=== PATIENT | male | born 1960 | race Caucasian/White ===

== ENCOUNTER 2017-04-23 15:10 | Emergency (ER) | payer MEDICAID ==
[~2017-04-23] VITALS: Ht 177.8 cm; Wt 87.1 kg
[~2017-04-23 15:10] MED LIST: DIVA500T4; FLUT0.0531; TOPI100T29; TRAZ100T2
[2017-04-23] MEDS ORDERED: KETOROLAC TROMETH 60MG/2ML VIAL IM ONE (17:30)
[2017-04-23 17:37] VITALS: BP 126/89
== END 2017-04-23 17:56 | disposition home or self-care (01) ==
LOC: ER 15:12
DX: M19.011 Primary osteoarthritis, right shoulder (principal)
CPT/HCPCS: 73030; 96372; 99284; J1885

== ENCOUNTER 2017-05-09 11:48 | Emergency (ER) | payer MEDICAID ==
[~2017-05-09] VITALS: Ht 177.8 cm; Wt 84.8 kg
[2017-05-09 15:57] VITALS: BP 129/79
[2017-05-09] MEDS ORDERED: LEVOFLOXACIN 500 MG TAB PO ONE (16:45)
== END 2017-05-09 16:56 | disposition home or self-care (01) ==
LOC: ER 11:48
DX: J18.9 Pneumonia, unspecified organism (principal); M19.90 Unspecified osteoarthritis, unspecified site; R07.89 Other chest pain

== ENCOUNTER 2017-06-18 16:12 | Inpatient (IN) | payer MEDICAID ==
[~2017-06-18] VITALS: Ht 177.8 cm; Wt 92.8 kg
[2017-06-18] MEDS ORDERED: LORazepam 2MG/ML-1ML VIAL ONE (16:30)
[2017-06-18] MEDS ORDERED: LORazepam 2MG/ML-1ML VIAL IV ONE ×2 (16:45)
[2017-06-18 16:52] LABS: Basophils # (auto) 0.1 uL; Basophils % (auto) 0.6 % (0.0-2.0); Eosinophils # (auto) 0.4 uL; Eosinophils % (auto) 4.9 % (0.0-7.0); Hematocrit 43.5 % (41.0-53.0); Hemoglobin 14.6 g/dL (13.5-17.5); Lymphocytes # (auto) 2.2 uL; Lymphocytes % (auto) 26.1 % (10.0-50.0); Mean Corpuscular Hemoglobin 33.6 pg (28.0-32.0); Mean Corpuscular Hgb Conc. 33.5 g/dL (32.0-36.0); Mean Corpuscular Volume 100.2 fL (80.0-100.0); Monocytes # (auto) 0.6 uL; Monocytes % (auto) 6.8 % (0.0-12.0); Neutrophils # (auto) 5.1 uL; Neutrophils % (auto) 61.6 % (37.0-80.0); Nucleated Red Blood Cells % 0.2 %; Platelet Count (auto) 188 10^3/uL (140-450); Red Blood Cells 4.34 10^6/uL (4.5-5.90); Red Cell Distribution Width 14.7 % (11.8-14.3); White Blood Cell 8.3 10^3/uL (4.4-10.8)
[2017-06-18 17:13] LABS: Alanine Aminotransferase 12 U/L (16-61); Albumin 3.7 g/dL (3.4-5.0); Alkaline Phosphatase 56 U/L (45-117); Anion Gap 9 (5-15); Aspartate Aminotransferase 15 U/L (15-37); BUN/Creatinine Ratio 20.7; Bilirubin, Total 0.3 mg/dL (0.2-1.0); Blood Urea Nitrogen 18 mg/dL (7-18); Calcium 7.9 mg/dL (8.5-10.1); Carbon Dioxide 20 mmol/L (21-32); Chloride 113 mmol/L (98-107); GFR African American 116 mL/min; GFR Non-African American 96 mL/min; Glucose 87 mg/dL (74-106); Potassium 4.1 mmol/L (3.5-5.1); Sodium 142 mmol/L (136-145); Total Protein 7.2 g/dL (6.4-8.2)
[2017-06-18 17:22] LABS: INR 0.96 (0.9-1.15); Partial Thromboplastin Time 31.5 sec (22.64-33.71); Prothrombin Time 10.5 sec (9.37-12.3)
[2017-06-18] MEDS ORDERED: LORazepam 2MG/ML-1ML VIAL IV PRN (19:00)
[2017-06-18] MEDS ORDERED: LACTULOSE 20Gm/30ML SOLN PO PRN (19:00)
[2017-06-18] MEDS ORDERED: TEMAZEPAM 15 MG CAP PO PRN (19:00)
[2017-06-18] MEDS ORDERED: MORPHINE SULFATE 4 MG/ML SYR/VIAL IV PRN ×2 (19:00)
[2017-06-18] MEDS ORDERED: LORazepam 0.5 MG TAB PO PRN (19:00)
[2017-06-18] MEDS ORDERED: NITROGLYCERIN 0.4 MG SL TAB SL PRN (19:00)
[2017-06-18] MEDS ORDERED: HYDROcodone-ACET 5/325MG TAB PO PRN (19:00)
[2017-06-18] MEDS ORDERED: PROMETHAZINE HCL 25 MG/ML 1ML IV PRN (19:00)
[2017-06-18] MEDS ORDERED: ACETAMINOPHEN 500 MG TAB PO PRN (19:00)
[2017-06-18 20:16] VITALS: BP 123/72
[2017-06-18 21:09] LABS: Urine Bacteria NONE SEEN /hpf (None Seen); Urine Blood 1+ /uL (Negative); Urine Mucus FEW (None Seen); Urine Specific Gravity 1.031 (1.001-1.035); Urine WBC 1 /hpf (0 - 3)
[2017-06-18 21:12] LABS: Alcohol, Urine < 3.0 mg/dL (0-5); Amphetamine Screen, Urine NEGATIVE (NEGATIVE); Barbiturate Scree,Urine NEGATIVE (NEGATIVE); Benzodiazephine Screen, Urine NEGATIVE (NEGATIVE); Cannabinoid Screen, Urine POSITIVE (NEGATIVE); Cocaine Screen, Urine NEGATIVE (NEGATIVE); Opiate Scree,Urine NEGATIVE (NEGATIVE); Phencyclidine Screen, Urine NEGATIVE (NEGATIVE)
[2017-06-18] MEDS ORDERED: traZODone HCL 50 MG TAB PO SCH (22:00)
[2017-06-18 22:02] VITALS: BP 123/72
[2017-06-18] MEDS: TOPIRAMATE 100 MG TAB PO SCH (22:11)
[2017-06-19 05:00] VITALS: BP 107/61
[2017-06-19 07:01] LABS: Cholesterol 200 mg/dL (< 200); HDL Cholesterol 35 mg/dL (40-59); LDL Cholesterol 144 mg/dL (< 100); Triglycerides 124 mg/dL (< 150)
[2017-06-19 09:00] VITALS: BP 103/64
[2017-06-19] MEDS: TOPIRAMATE 100 MG TAB PO SCH (09:45)
[2017-06-19] MEDS ORDERED: PANTOPRAZOLE 40 MG TAB PO SCH (10:00)
[2017-06-19] MEDS ORDERED: ENOXAPARIN SOD 40 MG/0.4 ML SYRINGE SC SCH (10:00)
[2017-06-19] MEDS ORDERED: NAP500T PO (14:30)
[2017-06-19] MEDS ORDERED: PROP60CA8 PO (14:30)
[2017-06-19] MEDS ORDERED: BACL10TA PO (14:30)
[2017-06-19 16:59] VITALS: BP 105/62
[2017-06-19 17:55] VITALS: BP 105/62
[2017-06-19] MEDS ORDERED: ATORVASTATIN 20 MG TAB PO SCH (18:00)
[2017-06-20] MEDS ORDERED: INFLUENZA QUAD 2017-2018 0.5 ML SYRG IM ONE (10:00)
[2017-06-20] MEDS ORDERED: PNEUMOCOCCAL VACC POLYS 25 MCG/0.5 ML VIAL IM ONE (10:00)
== END 2017-06-19 19:04 | disposition home or self-care (01) | DRG 53 ==
LOC: EDBD 16:12 → ER 16:12 → TELE 16:13 → TELE-WESTW 20:16
PROVIDERS: ADMIT Internal Medicine; ATTEND Internal Medicine
DX: G40.409 Other generalized epilepsy and epileptic syndromes, not intractable, without status epilepticus (principal); G93.41 Metabolic encephalopathy; E78.5 Hyperlipidemia, unspecified; I11.0 Hypertensive heart disease with heart failure; I50.9 Heart failure, unspecified; F17.210 Nicotine dependence, cigarettes, uncomplicated; F51.04 Psychophysiologic insomnia; M19.90 Unspecified osteoarthritis, unspecified site; R00.1 Bradycardia, unspecified; K59.00 Constipation, unspecified; F41.9 Anxiety disorder, unspecified; Z82.3 Family history of stroke; Z79.899 Other long term (current) drug therapy
CPT/HCPCS: 36415; 70450; 71045; 80053; 80061; 80164; 80307; 81001; 82550; 83605; 83880; 84443; 84484; 85025; 85610; 85652; 85730; 87040; 93005; 93306; 96374

== ENCOUNTER 2018-08-01 11:56 | Emergency (ER) | payer MEDICAID, OTHER ==
[~2018-08-01] VITALS: Ht 177.8 cm; Wt 81.6 kg
[~2018-08-01 11:56] MED LIST changes: +BACL10TA PO; +NAP500T PO
[2018-08-01] MEDS ORDERED: KETOROLAC TROMETH 60MG/2ML VIAL IM ONE (15:45)
[2018-08-01 15:56] VITALS: BP 136/86
== END 2018-08-01 17:09 | disposition home or self-care (01) ==
LOC: ER 11:56
DX: S92.211A Displaced fracture of cuboid bone of right foot, initial encounter for closed fracture (principal); F17.210 Nicotine dependence, cigarettes, uncomplicated; M19.90 Unspecified osteoarthritis, unspecified site; Z79.899 Other long term (current) drug therapy; X50.1XXA Overexertion from prolonged static or awkward postures, initial encounter; Y93.39 Activity, other involving climbing, rappelling and jumping off; Y92.89 Other specified places as the place of occurrence of the external cause; Y99.8 Other external cause status
CPT/HCPCS: 73630; 96372; 99283; J1885; L3260

== ENCOUNTER 2018-11-29 12:44 | Emergency (ER) | payer MEDICAID ==
[~2018-11-29] VITALS: Ht 177.8 cm; Wt 95.3 kg
[2018-11-29 15:10] LABS: Hematocrit 44.7 % (41.0-53.0); Hemoglobin 15.1 g/dL (13.5-17.5); Mean Corpuscular Hemoglobin 33.9 pg (28.0-32.0); Mean Corpuscular Hgb Conc. 33.7 g/dL (32.0-36.0); Mean Corpuscular Volume 100.7 fL (80.0-100.0); Platelet Count (auto) 187 10^3/uL (140-450); Red Blood Cells 4.44 10^6/uL (4.5-5.90); Red Cell Distribution Width 14.3 % (11.8-14.3); White Blood Cell 9.3 10^3/uL (4.4-10.8)
[2018-11-29 15:24] LABS: Alanine Aminotransferase 10 U/L (16-61); Albumin 3.9 g/dL (3.4-5.0); Anion Gap 8 (5-15); Aspartate Aminotransferase 12 U/L (15-37); Blood Urea Nitrogen 23 mg/dL (7-18); Calcium 8.5 mg/dL (8.5-10.1); Carbon Dioxide 22 mmol/L (21-32); Chloride 109 mmol/L (98-107); GFR African American 74 mL/min; GFR Non-African American 61 mL/min; Glucose 86 mg/dL (74-106); Potassium 3.8 mmol/L (3.5-5.1); Sodium 139 mmol/L (136-145)
[2018-11-29 15:29] LABS: Alkaline Phosphatase 62 U/L (45-117); Bilirubin, Total 0.4 mg/dL (0.2-1.0); Total Protein 7.1 g/dL (6.4-8.2)
[2018-11-29 15:30] LABS: Basophils % (manual) 0 (0.0-2.0); Blast Cells 0; Eosinophils % (manual) 0 (0-7); Metamyelocytes % 0; Myelocytes % 0; Promyelocytes % 0; Reactive Lymphocytes 0
[2018-11-29 18:41] LABS: Band Neutrophils % (manual) 1; Lymphocytes % (manual) 30 (10.0-50.0); Monocytes % (manual) 5 (0-12)
[2018-11-29 18:50] VITALS: BP 116/80
== END 2018-11-29 20:55 | disposition left against medical advice (07) ==
LOC: EDBD 12:44 → EDUNIT# 12:44 → ER 12:46
DX: R56.9 Unspecified convulsions (principal); Z53.21 Procedure and treatment not carried out due to patient leaving prior to being seen by health care provider
CPT/HCPCS: 36415; 70450; 71045; 80053; 84484; 85007; 85027; 93005

== ENCOUNTER 2019-05-02 08:42 | Emergency (ER) | payer MEDICAID ==
[~2019-05-02] VITALS: Ht 177.8 cm; Wt 84.4 kg
[~2019-05-02 08:42] MED LIST changes: -TRAZ100T2; +TRAZ100T3
[2019-05-02 10:00] VITALS: BP 114/68
[2019-05-02] MEDS ORDERED: SODIUM CHLORIDE 0.9% 1,000 ML IV ONE (10:41)
[2019-05-02 11:15] LABS: Hematocrit 40.4 % (41.0-53.0); Hemoglobin 13.6 g/dL (13.5-17.5); Mean Corpuscular Hemoglobin 33.9 pg (28.0-32.0); Mean Corpuscular Hgb Conc. 33.7 g/dL (32.0-36.0); Mean Corpuscular Volume 100.7 fL (80.0-100.0); Platelet Count (auto) 151 10^3/uL (140-450); Red Blood Cells 4.01 10^6/uL (4.5-5.90); Red Cell Distribution Width 14.3 % (11.8-14.3); White Blood Cell 6.7 10^3/uL (4.4-10.8)
[2019-05-02 11:18] LABS: Basophils % (manual) 0 (0.0-2.0); Blast Cells 0; Promyelocytes % 0; Reactive Lymphocytes 0
[2019-05-02 11:28] LABS: Albumin 3.3 g/dL (3.4-5.0); Anion Gap 2 (5-15); Blood Urea Nitrogen 21 mg/dL (7-18); Calcium 8.4 mg/dL (8.5-10.1); Carbon Dioxide 26 mmol/L (21-32); Chloride 113 mmol/L (98-107); Glucose 87 mg/dL (74-106); Potassium 4.7 mmol/L (3.5-5.1); Sodium 141 mmol/L (136-145)
[2019-05-02 11:34] LABS: Alanine Aminotransferase 9 U/L (16-61); Alkaline Phosphatase 47 U/L (45-117); Aspartate Aminotransferase 10 U/L (15-37); Bilirubin, Total 0.3 mg/dL (0.2-1.0); GFR African American 100 mL/min; GFR Non-African American 82 mL/min; Total Protein 6.2 g/dL (6.4-8.2)
[2019-05-02 11:37] LABS: INR 1.04 (0.9-1.15); Partial Thromboplastin Time 30.4 sec (23.64-32.05)
[2019-05-02 11:41] LABS: Band Neutrophils % (manual) 1; Eosinophils % (manual) 3 (0-7); Lymphocytes % (manual) 29 (10.0-50.0); Metamyelocytes % 1; Monocytes % (manual) 8 (0-12); Myelocytes % 1
[2019-05-02 12:02] LABS: BUN/Creatinine Ratio 21.2
== END 2019-05-02 12:49 | disposition home or self-care (01) ==
LOC: ER 08:42
DX: R00.1 Bradycardia, unspecified (principal); R56.9 Unspecified convulsions; R40.4 Transient alteration of awareness; F17.210 Nicotine dependence, cigarettes, uncomplicated; M19.90 Unspecified osteoarthritis, unspecified site; W19.XXXA Unspecified fall, initial encounter; Y93.89 Activity, other specified; Y99.8 Other external cause status; Y92.89 Other specified places as the place of occurrence of the external cause
CPT/HCPCS: 36415; 70450; 71101; 80053; 84484; 85007; 85027; 85610; 85730

== ENCOUNTER 2019-06-13 10:46 | Emergency (ER) | payer MEDICAID ==
[~2019-06-13] VITALS: Ht 177.8 cm; Wt 83.0 kg
[2019-06-13] MEDS ORDERED: SODIUM CHLORIDE 0.9% 1,000 ML IVB ONE (10:51)
[2019-06-13 11:21] LABS: Basophils # (auto) 0.1 uL; Basophils % (auto) 1.4 % (0.0-2.0); Eosinophils # (auto) 0.4 uL; Lymphocytes # (auto) 2.1 uL; White Blood Cell 7.8 10^3/uL (4.4-10.8)
[2019-06-13 11:23] LABS: Eosinophils % (auto) 4.5 % (0.0-7.0); Hematocrit 44.3 % (41.0-53.0); Hemoglobin 15.1 g/dL (13.5-17.5); Lymphocytes % (auto) 26.7 % (10.0-50.0); Mean Corpuscular Hemoglobin 34.7 pg (28.0-32.0); Mean Corpuscular Hgb Conc. 34.2 g/dL (32.0-36.0); Mean Corpuscular Volume 101.6 fL (80.0-100.0); Monocytes # (auto) 0.5 uL; Monocytes % (auto) 6.8 % (0.0-12.0); Neutrophils # (auto) 4.7 uL; Neutrophils % (auto) 60.6 % (37.0-80.0); Platelet Count (auto) 211 10^3/uL (140-450); Red Blood Cells 4.36 10^6/uL (4.5-5.90); Red Cell Distribution Width 15.1 % (11.8-14.3)
[2019-06-13 12:04] LABS: Alanine Aminotransferase 17 U/L (16-61); Albumin 3.9 g/dL (3.4-5.0); Anion Gap 6 (5-15); Blood Alcohol < 3.0 mg/dL (0-5); Blood Urea Nitrogen 16 mg/dL (7-18); Calcium 9.1 mg/dL (8.5-10.1); Carbon Dioxide 21 mmol/L (21-32); Chloride 113 mmol/L (98-107); Glucose 96 mg/dL (74-106); Magnesium 1.9 mg/dL (1.6-2.6); Potassium 3.9 mmol/L (3.5-5.1); Sodium 140 mmol/L (136-145)
[2019-06-13 12:07] LABS: Alkaline Phosphatase 67 U/L (45-117); Aspartate Aminotransferase 18 U/L (15-37); BUN/Creatinine Ratio 17.6; Bilirubin, Total 0.3 mg/dL (0.2-1.0); GFR African American 110 mL/min; GFR Non-African American 91 mL/min; Total Protein 7.3 g/dL (6.4-8.2)
[2019-06-13 16:12] LABS: Amphetamine Screen, Urine NEGATIVE (NEGATIVE); Barbiturate Scree,Urine POSITIVE (NEGATIVE); Benzodiazephine Screen, Urine NEGATIVE (NEGATIVE); Cannabinoid Screen, Urine NEGATIVE (NEGATIVE); Cocaine Screen, Urine NEGATIVE (NEGATIVE); Opiate Scree,Urine NEGATIVE (NEGATIVE); Phencyclidine Screen, Urine NEGATIVE (NEGATIVE)
[2019-06-13 16:28] VITALS: BP 131/58
== END 2019-06-13 16:23 | disposition home or self-care (01) ==
LOC: ER 10:46 → EDBD 10:46 → ER 16:23
DX: R56.9 Unspecified convulsions (principal); R53.1 Weakness; R42 Dizziness and giddiness; M19.90 Unspecified osteoarthritis, unspecified site; J44.9 Chronic obstructive pulmonary disease, unspecified; F17.210 Nicotine dependence, cigarettes, uncomplicated
CPT/HCPCS: 36415; 70450; 72125; 80053; 80164; 80307; 80320; 83735; 85025; 93005; 96360; 96361

== ENCOUNTER 2020-02-19 13:23 | Emergency (ER) | payer MEDICAID ==
[~2020-02-19] VITALS: Ht 177.8 cm; Wt 87.5 kg
[2020-02-19] MEDS ORDERED: SODIUM CHLORIDE 0.9% 1,000 ML IV ONE ×2 (13:30)
[2020-02-19 14:03] LABS: Basophils # (auto) 0.1 10 ^3/uL (0-0.2); Eosinophils # (auto) 0.1 10 ^3/uL (0-0.8); Hematocrit 50.1 % (41.0-53.0); Hemoglobin 16.8 g/dL (13.5-17.5); Lymphocytes # (auto) 1.6 10 ^3/uL (0.4-5.4); Lymphocytes % (auto) 24.8 % (10.0-50.0); Mean Corpuscular Hemoglobin 34.1 pg (28.0-32.0); Mean Corpuscular Hgb Conc. 33.6 g/dL (32.0-36.0); Mean Corpuscular Volume 101.3 fL (80.0-100.0); Monocytes # (auto) 0.6 10 ^3/uL (0-1.3); Monocytes % (auto) 9.1 % (0.0-12.0); Neutrophils # (auto) 4.2 10 ^3/uL (1.6-8.6); Neutrophils % (auto) 63.1 % (37.0-80.0); Platelet Count (auto) 159 10^3/uL (140-450); Red Blood Cells 4.94 10^6/uL (4.5-5.90); Red Cell Distribution Width 14.6 % (11.8-14.3); White Blood Cell 6.6 10^3/uL (4.4-10.8)
[2020-02-19 14:18] LABS: INR 1.02 (0.9-1.15); Partial Thromboplastin Time 25.9 sec (23.0-31.2)
[2020-02-19 14:19] LABS: Albumin 3.9 g/dL (3.4-5.0); Anion Gap 5 (5-15); Blood Urea Nitrogen 25 mg/dL (7-18); Calcium 8.6 mg/dL (8.5-10.1); Carbon Dioxide 25 mmol/L (21-32); Chloride 111 mmol/L (98-107); Glucose 96 mg/dL (74-106); Potassium 3.8 mmol/L (3.5-5.1); Sodium 141 mmol/L (136-145)
[2020-02-19 14:25] LABS: Alanine Aminotransferase 20 U/L (16-61); Alkaline Phosphatase 60 U/L (45-117); Aspartate Aminotransferase 20 U/L (15-37); BUN/Creatinine Ratio 24.8; Bilirubin, Total 0.3 mg/dL (0.2-1.0); GFR African American 97 mL/min; GFR Non-African American 80 mL/min; Total Protein 7.2 g/dL (6.4-8.2)
[2020-02-19 17:08] LABS: Urine Bacteria NONE SEEN /hpf (None Seen); Urine Blood 1+ /uL (Negative); Urine Specific Gravity 1.017 (1.001-1.035); Urine WBC 1 /hpf (0 - 3)
[2020-02-19] MEDS ORDERED: DOBUTamine 1000MCG/ML 250 ML IV ONE (17:15)
[2020-02-19] MEDS ORDERED: LORazepam 2MG/ML-1ML VIAL IV PRN (17:45)
[2020-02-19] MEDS ORDERED: VALPROATE INJ 1,000 MG in SODIUM CHL 0.9% 100 ML IV ONE (17:45)
[2020-02-19] MEDS ORDERED: SODIUM CHLORIDE 0.9% 1,000 ML IV SCH (17:45)
[2020-02-19] MEDS ORDERED: LACTATED RINGER'S 1,000 ML IV ONE (17:45)
[2020-02-19] MEDS ORDERED: NITROGLYCERIN 0.4 MG SL TAB SL PRN ×2 (18:00→21:30)
[2020-02-19] MEDS ORDERED: MORPHINE SULF INJ 2 MG/ML SYRINGE 1ML IV PRN ×3 (18:00→21:30)
[2020-02-19 20:00] VITALS: BP 102/68
[2020-02-19] MEDS ORDERED: FLUT1SPR21 (20:10)
[2020-02-19] MEDS ORDERED: NICO14DI29 TD (20:11)
[2020-02-19] MEDS ORDERED: BACLOFEN 10 MG TAB PO PRN (21:15)
[2020-02-19] MEDS ORDERED: FOLIC ACID 1 MG TAB PO ONE (21:15)
[2020-02-19] MEDS ORDERED: MULTIPLE VITAMIN TAB PO ONE (21:15)
[2020-02-19] MEDS ORDERED: DOCUSATE SOD 100 MG CAP PO PRN (21:30)
[2020-02-19] MEDS ORDERED: LORazepam 0.5 MG TAB PO PRN (21:30)
[2020-02-19] MEDS ORDERED: ONDANSETRON HCL 4 MG/2 ML VIAL IV PRN (21:30)
[2020-02-19] MEDS ORDERED: cefTRIAXone 1GM/50ML D5W 50 ML IV ONE (21:30)
[2020-02-19] MEDS ORDERED: HYDROcodone-ACET 5/325MG TAB PO PRN (21:30)
[2020-02-19] MEDS ORDERED: ACETAMINOPHEN 325 MG TAB PO PRN (21:30)
[2020-02-19] MEDS ORDERED: ALUM & MAG HYDROX-SIMETH LIQ(MAALOX) 30 ML PO PRN (21:30)
[2020-02-19] MEDS ORDERED: traZODone HCL 50 MG TAB PO SCH (22:00)
[2020-02-19] MEDS ORDERED: BUDESONIDE (INHALATION) 0.5 MG/2 ML NEB NEB SCH (22:00)
[2020-02-19] MEDS ORDERED: CLINDAMYCIN 600MG IV 50 ML IV ONE (22:00)
[2020-02-19] MEDS ORDERED: TOPIRAMATE 100 MG TAB PO SCH (22:00)
[2020-02-19] MEDS ORDERED: PRIMIDONE 50 MG TAB PO SCH (22:00)
[2020-02-19] MEDS ORDERED: CLINDAMYCIN 600MG IV 50 ML IV SCH (22:00)
[2020-02-19] MEDS ORDERED: IPRATROPIUM BROM 0.5 MG/2.5ML INH SOL NEB SCH (22:00)
[2020-02-19] MEDS ORDERED: LACOSAMIDE 50 MG TAB PO SCH (22:00)
[2020-02-19 22:22] LABS: Alcohol, Urine < 3.0 mg/dL (0-10); Amphetamine Screen, Urine NEGATIVE (NEGATIVE); Barbiturate Scree,Urine POSITIVE (NEGATIVE); Cannabinoid Screen, Urine POSITIVE (NEGATIVE); Cocaine Screen, Urine NEGATIVE (NEGATIVE)
[2020-02-19 22:29] LABS: Benzodiazephine Screen, Urine NEGATIVE (NEGATIVE); Opiate Scree,Urine NEGATIVE (NEGATIVE); Phencyclidine Screen, Urine NEGATIVE (NEGATIVE)
[2020-02-20] MEDS ORDERED: CLINDAMYCIN 600MG IV 50 ML IV SCH (06:00)
[2020-02-20] MEDS ORDERED: cefTRIAXone 1GM/50ML D5W 50 ML IV SCH (09:00)
[2020-02-20] MEDS ORDERED: ENOXAPARIN SOD 40 MG/0.4 ML SYRINGE SC SCH (10:00)
[2020-02-20] MEDS ORDERED: FOLIC ACID 1 MG TAB PO SCH (10:00)
[2020-02-20] MEDS ORDERED: THIAMINE 100mg/ml INJ (200mg/2ml VIAL) IV SCH (10:00)
[2020-02-20] MEDS ORDERED: MULTIPLE VITAMIN TAB PO SCH (10:00)
[2020-02-20] MEDS ORDERED: NICOTINE 14 MG/24HR TOPICAL PATCH TD SCH (10:00)
== END 2020-02-19 21:19 | disposition left against medical advice (07) ==
LOC: EDBD 13:23 → ER 13:23
DX: G40.909 Epilepsy, unspecified, not intractable, without status epilepticus (principal); E86.0 Dehydration; R00.1 Bradycardia, unspecified; R55 Syncope and collapse; J44.9 Chronic obstructive pulmonary disease, unspecified; F17.210 Nicotine dependence, cigarettes, uncomplicated
CPT/HCPCS: 36415; 70450; 71045; 73030; 80053; 80307; 80320; 81001; 82550; 83036; 84146; 84484; 85025; 85610; 85730; 87086; 93005; 96360; 96361; 99285; J1250

== ENCOUNTER 2020-12-02 11:02 | Emergency (ER) | payer MEDICAID ==
[~2020-12-02] VITALS: Ht 177.8 cm; Wt 87.1 kg
[~2020-12-02 11:02] MED LIST changes: -FLUT0.0531; +FLUT1SPR21; +NICO14DI29 TD
[2020-12-02 12:39] VITALS: BP 148/91
== END 2020-12-02 13:26 | disposition home or self-care (01) ==
LOC: ER 11:02
DX: S16.1XXA Strain of muscle, fascia and tendon at neck level, initial encounter (principal); M48.02 Spinal stenosis, cervical region; M47.892 Other spondylosis, cervical region; J44.9 Chronic obstructive pulmonary disease, unspecified; Z79.899 Other long term (current) drug therapy; X58.XXXA Exposure to other specified factors, initial encounter; Y93.89 Activity, other specified; Y92.89 Other specified places as the place of occurrence of the external cause; Y99.8 Other external cause status
CPT/HCPCS: 72125

== ENCOUNTER 2021-08-25 19:57 | Emergency (ER) | payer MEDICAID ==
[~2021-08-25] VITALS: Ht 177.8 cm; Wt 88.5 kg
[2021-08-25 19:58] VITALS: BP 131/78
== END 2021-08-25 21:54 | disposition left against medical advice (07) ==
LOC: ER 19:57
DX: M25.532 Pain in left wrist (principal); Z53.21 Procedure and treatment not carried out due to patient leaving prior to being seen by health care provider

== ENCOUNTER 2021-09-09 10:01 | Emergency (ER) | payer MEDICAID ==
[~2021-09-09] VITALS: Ht 177.8 cm; Wt 100.7 kg
[2021-09-09 11:11] VITALS: BP 154/79
== END 2021-09-09 12:30 | disposition home or self-care (01) ==
LOC: ER 10:01
DX: M13.842 Other specified arthritis, left hand (principal); M13.841 Other specified arthritis, right hand; J44.9 Chronic obstructive pulmonary disease, unspecified
CPT/HCPCS: 73130

== ENCOUNTER 2022-04-20 18:31 | Emergency (ER) | payer MEDICAID ==
[~2022-04-20] VITALS: Ht 177.8 cm; Wt 119.0 kg
[2022-04-20 19:19] VITALS: BP 161/96
== END 2022-04-21 02:16 | disposition left against medical advice (07) ==
LOC: ER 18:33
DX: M54.50 Low back pain, unspecified (principal); Z53.21 Procedure and treatment not carried out due to patient leaving prior to being seen by health care provider

== ENCOUNTER 2022-04-28 10:43 | Emergency (ER) | payer MEDICAID ==
[~2022-04-28] VITALS: Ht 177.8 cm; Wt 116.8 kg
[2022-04-28] MEDS ORDERED: LIDO5DIS21 TOP (14:14)
[2022-04-28] MEDS ORDERED: IBUP600T28 PO (14:14)
[2022-04-28] MEDS ORDERED: KETOROLAC TROMETH 30 MG/ML 1ML VIAL IM ONE (14:15)
[2022-04-28 14:30] VITALS: BP 143/79
[2022-04-28] MEDS ORDERED: CEPH-510 PO (14:35)
== END 2022-04-28 14:40 | disposition home or self-care (01) ==
LOC: ER 10:43
DX: S39.012A Strain of muscle, fascia and tendon of lower back, initial encounter (principal); J44.9 Chronic obstructive pulmonary disease, unspecified; W57.XXXA Bitten or stung by nonvenomous insect and other nonvenomous arthropods, initial encounter; Y93.89 Activity, other specified; Y92.89 Other specified places as the place of occurrence of the external cause; Y99.8 Other external cause status
CPT/HCPCS: 72100; 96372; 99283; J1885

== ENCOUNTER 2023-05-08 08:37 | Emergency (ER) | payer MEDICAID ==
[~2023-05-08] VITALS: Ht 177.8 cm; Wt 124.3 kg
[~2023-05-08 08:37] MED LIST changes: +CEPH-510 PO; +DIVA-93; -DIVA500T4; +IBUP1TAB5 PO; +LIDO5DIS21 TOP; +TRAZ-228; -TRAZ100T3
[2023-05-08 09:43] LABS: Basophils # (auto) 0.1 10 ^3/uL (0-0.2); Eosinophils # (auto) 0.2 10 ^3/uL (0-0.8); Hemoglobin 16.4 g/dL (13.5-17.5); Lymphocytes # (auto) 1.9 10 ^3/uL (0.4-5.4); Lymphocytes % (auto) 20.2 % (10.0-50.0); Mean Corpuscular Hemoglobin 32.3 pg (28.0-32.0); Mean Corpuscular Hgb Conc. 32.9 g/dL (32.0-36.0); Mean Corpuscular Volume 98.1 fL (80.0-100.0); Monocytes # (auto) 0.7 10 ^3/uL (0-1.3); Monocytes % (auto) 7.6 % (0.0-12.0); Neutrophils # (auto) 6.5 10 ^3/uL (1.6-8.6); Neutrophils % (auto) 69.2 % (37.0-80.0); Red Blood Cells 5.09 10^6/uL (4.5-5.90); Red Cell Distribution Width 14.6 % (11.8-14.3); White Blood Cell 9.5 10^3/uL (4.4-10.8)
[2023-05-08 10:02] LABS: Chloride 105 mmol/L (98-107); Potassium 4.9 mmol/L (3.5-5.1); Sodium 139 mmol/L (136-145)
[2023-05-08 10:03] LABS: Anion Gap 4 (5-15); Calcium 9.1 mg/dL (8.7-10.4); Carbon Dioxide 30 mmol/L (20-30)
[2023-05-08 10:07] LABS: Uric Acid 8.4 mg/dL (3.7-9.2)
[2023-05-08 10:08] LABS: BUN/Creatinine Ratio 10.2 (10.0-20.0); Blood Urea Nitrogen 15 mg/dL (9-23); Glucose 109 mg/dL (74-106)
[2023-05-08] MEDS ORDERED: PRED20TA2 PO (10:30)
[2023-05-08] MEDS ORDERED: ACET-1304 PO (10:30)
[2023-05-08] MEDS ORDERED: methylPREDNISolone SOD SUCC 125 MG/2 ML VL IM ONE (10:30)
[2023-05-08] MEDS ORDERED: ACETAMINOPHEN 500 MG TAB PO ONE (10:30)
[2023-05-08 10:40] VITALS: BP 150/82; PULSE 75; RESP 17; TEMP 98.2; O2SAT 94
== END 2023-05-08 10:41 | disposition home or self-care (01) ==
LOC: ER 08:37
DX: M10.9 Gout, unspecified (principal)
CPT/HCPCS: 36415; 73080; 80048; 84550; 85025; 96372; 99284; J2930

== ENCOUNTER 2023-07-08 11:19 | Inpatient (IN) | payer MEDICAID ==
[~2023-07-08] VITALS: Ht 177.8 cm; Wt 126.0 kg
[~2023-07-08 11:19] MED LIST changes: +ACET-1304 PO; +PRED20TA2 PO
[2023-07-08] MEDS: SODIUM CHLORIDE 0.9% 500 ML IVB ONE (13:36)
[2023-07-08 14:15] LABS: Basophils # (auto) 0.1 10 ^3/uL (0-0.2); Basophils % (auto) 0.9 % (0.0-2.0); Eosinophils # (auto) 0.2 10 ^3/uL (0-0.8); Hemoglobin 17.1 g/dL (13.5-17.5); Lymphocytes # (auto) 1.8 10 ^3/uL (0.4-5.4); Lymphocytes % (auto) 20.6 % (10.0-50.0); Monocytes # (auto) 0.6 10 ^3/uL (0-1.3); Neutrophils # (auto) 6.1 10 ^3/uL (1.6-8.6); Neutrophils % (auto) 69.5 % (37.0-80.0); Nucleated Red Blood Cells % 0.1 %; Red Blood Cells 5.33 10^6/uL (4.5-5.90); White Blood Cell 8.7 10^3/uL (4.4-10.8)
[2023-07-08 14:16] LABS: Hematocrit 51.6 % (41.0-53.0); Mean Corpuscular Hemoglobin 32.2 pg (28.0-32.0); Mean Corpuscular Hgb Conc. 33.2 g/dL (32.0-36.0); Mean Corpuscular Volume 96.8 fL (80.0-100.0); Red Cell Distribution Width 14.1 % (11.8-14.3)
[2023-07-08] MEDS: ONDANSETRON HCL 4 MG/2 ML VIAL IV ONE (14:26)
[2023-07-08] MEDS: KETOROLAC TROMETH 30 MG/ML 1ML VIAL IV ONE (14:27)
[2023-07-08] MEDS ORDERED: HYDR-4902 PO (14:44)
[2023-07-08 15:21] LABS: Chloride 107 mmol/L (98-107); Potassium 4.4 mmol/L (3.5-5.1); Sodium 139 mmol/L (136-145)
[2023-07-08 15:22] LABS: Anion Gap 4 (5-15); Calcium 9.1 mg/dL (8.5-10.1); Carbon Dioxide 28 mmol/L (20-30)
[2023-07-08 15:27] LABS: BUN/Creatinine Ratio 12.3 (10.0-20.0); Blood Urea Nitrogen 14 mg/dL (9-23); Glucose 83 mg/dL (74-106)
[2023-07-08 15:46] LABS: Urine Bacteria NONE SEEN /hpf (None Seen); Urine Blood 1+ /uL (Negative); Urine Clarity Clear (Clear); Urine Color Colorless (Yellow); Urine Protein, UAD Negative (Negative); Urine Specific Gravity 1.017 (1.001-1.035); Urine Urobilinogen Normal (Negative); Urine WBC 1 /hpf (0 - 3)
[2023-07-08] MEDS ORDERED: SODIUM CHLORIDE 0.9% 1,000 ML IV SCH (16:15)
[2023-07-08] MEDS ORDERED: MORPHINE SULFATE INJ 2 MG/ml SYRG IV PRN (16:15)
[2023-07-08] MEDS ORDERED: HYDROcodone-ACET 5/325MG TAB PO PRN (16:15)
[2023-07-08] MEDS ORDERED: ONDANSETRON HCL 4 MG/2 ML VIAL IV PRN (16:15)
[2023-07-08] MEDS ORDERED: ACETAMINOPHEN 325 MG TAB PO PRN (16:15)
[2023-07-08] MEDS ORDERED: TAMSULOSIN HYDROCHLORIDE 0.4 MG CAP PO SCH (18:00)
[2023-07-08 18:22] VITALS: BP 152/72; PULSE 68; RESP 17; TEMP 99.1; O2SAT 94
[2023-07-09] MEDS ORDERED: ENOXAPARIN SOD 40 MG/0.4 ML SYRINGE SC SCH (10:00)
== END 2023-07-08 18:23 | disposition home or self-care (01) | DRG 465 ==
LOC: ER 11:19 → OVERFLOW 16:05
PROVIDERS: ADMIT Internal Medicine; ATTEND Internal Medicine
DX: N20.2 Calculus of kidney with calculus of ureter (principal); I10 Essential (primary) hypertension; J44.9 Chronic obstructive pulmonary disease, unspecified; R91.1 Solitary pulmonary nodule; Z72.0 Tobacco use; Z79.899 Other long term (current) drug therapy; Z82.3 Family history of stroke; Z87.442 Personal history of urinary calculi
CPT/HCPCS: 36415; 71250; 74176; 80048; 81001; 85025; G0378; J1885; J2405

== ENCOUNTER 2024-03-17 13:03 | Inpatient (IN) | payer MEDICAID, OTHER ==
[~2024-03-17] VITALS: Ht 177.8 cm; Wt 130.4 kg
[~2024-03-17 13:03] MED LIST changes: +HYDR-4902 PO
--- NOTE | 2024-03-17 13:59 | ED.PDOC ---
SOB-HPI HPI Comments 63 year old male presents to the ED with chief complaint of SOB. Patient reports that he has been experiencing increasing SOB for the past 2 weeks when exerting himself. Patient relays that he had visited his research affiliate Dr. Garza today for clearance for an upcoming surgery next month for his back at [facility], however, he was noted to have a low O2 saturation (unknown number), so he was advised to either visit [facility] or come to the ED for further evaluation. Patient states he was also told he may have fluid in his lungs. Patient notes he also has been having unrelated groin pain when coughing or sneezing. Patient denies any N/V/D, chest pain, cough, dizziness, fever, or chills. Time Seen by MD: 13:58 Primary Care Provider: VANESA Reviewed notes: Nurses Notes, Medications, Allergies Information Source: Patient Mode of Arrival: Wheelchair Severity: Moderate Timing: Weeks Duration: Since onset Context: At Rest PE Risk Factors: None History of: CHF Prehospital treatment: None Modifying Factors: Nothing Associated Signs and Symptoms: None Past Medical History PAST MEDICAL HISTORY: Arthritis, CHF, CKF, COPD, HTN, Seizures Surgical History (Other): Left knee replacement Family History Family History: Reviewed,noncontributory to illness Social History Smoker: Cigarettes Alcohol: Occasionally Drugs: Denies Drug Use Lives In: Home Constitutional: denies: chills, diaphoresis, fatigue, fever, malaise, sweats, weakness, others EENTM: denies: blurred vision, double vision, ear bleeding, ear discharge, ear drainage, ear pain, ear ringing, eye pain, eye redness, hearing loss, mouth pain, mouth swelling, nasal discharge, nose bleeding, nose congestion, nose pain, photophobia, tearing, throat pain, throat swelling, voice changes, others Respiratory: reports: shortness of breath, SOB with excertion; denies: cough, hemoptysis, orthopnea, SOB at rest, stridor, wheezing, others Cardiovascular: denies: chest pain, dizzy spells, diaphoresis, Dyspnea on exertion, edema, irregular heart beat, left arm pain, lightheadedness, palpitations, PND, syncope, others Gastrointestinal: denies: abdomen distended, abdominal pain, blood streaked bowels, constipated, diarrhea, dysphagia, difficulty swallowing, hematemesis, melena, nausea, poor appetite, poor fluid intake, rectal bleeding, rectal pain, vomiting, others Genitourinary: denies: burning, dysuria, flank pain, frequency, hematuria, incontinence, penile discharge, penile sore, pain, testicle pain, testicle swelling, urgency, others Neurological: denies: dizziness, fainting, headache, left sided numbness, left sided weakness, numbness, paresthesia, pre-existing deficit, right sided numbness, right sided weakness, seizure, speech problems, tingling, tremors, weakness, others Musculoskeletal: denies: back pain, gout, joint pain, joint swelling, muscle pain, muscle stiffness, neck pain, others Integumetry: denies: bruises, change in color, change in hair/nails, dryness, laceration, lesions, lumps, rash, wounds, others Allergic/Immunocompromised: denies: Difficulty Healing, Frequent Infections, Hives, Itching, others Hematologic/Lymphatic: denies: anemia, blood clots, easy bleeding, easy bruising, swollen glands, others Endocrine: denies: excessive hunger, excessive sweating, excessive thirst, excessive urination, flushing, intolerance to cold, intolerance to heat, unexplained weight gain, unexplained weight loss, others Psychiatric: denies: anxiety, bipolar disorder, depression, hopeless, panic disorder, schizophrenia, sleepless, suicidal, others All Other Systems: Reviewed and Negative Physical Exam General Appearance: No Apparent Distress, Normal, Other (Patient on 2 L nasal cannula) HEENT: Normal ENT Inspection, PERRL/EOMI Neck: Full Range of Motion, Non-Tender, Normal, Normal Inspection Respiratory: Chest Non-Tender, Lungs Clear, No Accessory Muscle Use, No Respiratory Distress, Normal Breath Sounds Cardiovascular: No Edema, No JVD, No Murmur, No Gallop, Normal Peripheral Pulses, Regular Rate/Rhythm Breast Exam: Deferred Gastrointestinal: No Organomegaly, Non Tender, No Pulsatile Mass, Normal Bowel Sounds, Soft Genitalia: Deferred Pelvic: Deferred Rectal: Deferred Extremities: No calf tenderness, Normal capillary refill, Normal inspection, Normal range of motion, Non-tender, No pedal edema Musculoskeletal : Apperance: Normal Neurologic: Alert, rehabilitation tech II-XII nml as Tested, No Motor Deficits, Normal Affect, Normal Mood, No Sensory Deficits Cerebellar Function: Normal Reflexes: Normal Skin: Dry, Normal Color, Warm Lymphatic: No Adenopathy Was a procedure done? Was a procedure done?: No Differential Dx Differential Diagnosis: Bronchitis, Pneumonia, URI X-Ray, Labs, Meds, VS Vital Signs Date Time Temp Pulse Resp B/P (MAP) Pulse Ox O2 Delivery O2 Flow Rate FiO2 03/17/24 15:45 98.1 57 14 132/73 (92) 96 98.1 03/17/24 15:45 57 14 96 Nasal Cannula* 3 32 03/17/24 14:55 97.5 60 16 121/64 (83) 93 Lab Test 03/17/24 16:40 03/17/24 13:45 Range/Units Troponin I High Sensitivity 7 5 </=54 ng/L White Blood Count 9.4 4.4-10.8 10^3/uL Red Blood Count 4.66 4.5-5.90 10^6/uL Hemoglobin 15.4 13.5-17.5 g/dL Hematocrit 46.6 41.0-53.0 % Mean Corpuscular Volume 100.1 H 80.0-100.0 fL Mean Corpuscular Hemoglobin 33.0 H 28.0-32.0 pg Mean Corpuscular Hemoglobin Concent 33.0 32.0-36.0 g/dL Red Cell Distribution Width 14.8 H 11.8-14.3 % Platelet Count 190 140-450 10^3/uL Mean Platelet Volume 8.0 6.9-10.8 fL Neutrophils (%) (Auto) 67.9 37.0-80.0 % Lymphocytes (%) (Auto) 24.1 10.0-50.0 % Monocytes (%) (Auto) 6.0 0.0-12.0 % Eosinophils (%) (Auto) 1.0 0.0-7.0 % Basophils (%) (Auto) 1.0 0.0-2.0 % Neutrophils # (Auto) 6.4 1.6-8.6 10 ^3/uL Lymphocytes # (Auto) 2.3 0.4-5.4 10 ^3/uL Monocytes # (Auto) 0.6 0-1.3 10 ^3/uL Eosinophils # (Auto) 0.1 0-0.8 10 ^3/uL Basophils # (Auto) 0.1 0-0.2 10 ^3/uL Nucleated Red Blood Cells 0.0 % Sodium Level 140 136-145 mmol/L Potassium Level 4.1 3.5-5.1 mmol/L Chloride Level 101 98-107 mmol/L Carbon Dioxide Level > 40 *H 20-31 mmol/L Anion Gap -1.61353 L 5-15 Blood Urea Nitrogen 20 9-23 mg/dL Creatinine 1.48 H 0.700-1.30 mg/dL Glomerular Filtration Rate Calc 53 >90 mL/min BUN/Creatinine Ratio 13.5 10.0-20.0 Serum Glucose 126 H 74-106 mg/dL Calcium Level 8.8 8.7-10.4 mg/dL Total Bilirubin 0.3 0.2-1.0 mg/dL Aspartate Amino Transferase (AST) 28 13-40 U/L Alanine Aminotransferase (ALT) 29 7-40 U/L Alkaline Phosphatase 103 46-116 U/L B-Type Natriuretic Peptide 38.78 0-100 pg/mL Total Protein 5.9 5.7-8.2 g/dL Albumin 4.0 3.2-4.8 g/dL Chest XR: FINDINGS: Lines and Tubes: None Lungs: No focal consolidation. Mild pulmonary vascular congestion. Pleura: No effusion. No pneumothorax. Cardiomediastinal contours:Mild cardiomegaly. Bones: No acute osseous abnormality. IMPRESSION: Mild pulmonary vascular congestion. 63-year-old male presents here from research affiliate office for low oxygen saturations. We do not know how low he was saturating. However patient states he has been getting short of breath walking to the grocery store walking around in the grocery store walking to his car. He does have a known history of CHF. This time blood work has been done which demonstrates a CO2 greater than 40. he is likely from CO2 retention given he is a chronic smoker previously. However an order repeat BMP has been ordered for recheck given the values very abnormal. Patient also was saturating 93% on room air. However when patient was changing his clothes, his oxygenation dropped to 85% on room air. At this time chest x- ray does demonstrates some vascular congestion. I have given him Lasix in the ER. At this time believe he would benefit from inpatient admission. Hospitalist team has been contacted. Images Reviewed?: Images reviewed and evaluated by me Time of 1ST Reevaluation: 14:58 Reevaluation 1ST: Unchanged Time of 2ND Reevaluation: 15:33 Reevaluation 2ND: Improved Patient Education/Counseling: Diagnosis, Treatment Family Education/Counseling: No Family Present Departure 1 Departure Time of Disposition: 15:33 Impression: Primary Impression: Shortness of breath Additional Impressions: Hypoxia Pulmonary vascular congestion Disposition: ADMITTED INPATIENT Admit to: Tele Condition: Fair Critical Care Note Critical Care Time?: No Stability Stability form required: No Heart Score Heart Score: Heart Score Response (Comments) Value History Moderate Suspicious 1 EKG N/A 0 Age 45-64 1 Risk Factors >3 or Hx ASHD 2 Troponin Normal limit 0 Total 4 I personally scribed for LORNA OG MD ([email or web address]) on 03/17/24 at 13:59. Electronically submitted by Ernie Hawley ([email or web address]). I personally scribed for LORNA OG MD ([email or web address]) on 03/17/24 at 14:15. Electronically submitted by Ernie Hawley ([email or web address]). I personally scribed for LORNA OG MD ([email or web address]) on 03/17/24 at 14:49. Electronically submitted by Ernie Hawley ([email or web address]). I personally scribed for LORNA OG MD ([email or web address]) on 03/17/24 at 15:25. Electronically submitted by Ernie Hawley ([email or web address]). I personally scribed for LORNA OG MD ([email or web address]) on 03/17/24 at 15:34. Electronically submitted by Ernie Hawley ([email or web address]). LORNA OG MD Mar 17, 2024 13:59
[2024-03-17 14:14] LABS: Basophils # (auto) 0.1 10 ^3/uL (0-0.2); Eosinophils # (auto) 0.1 10 ^3/uL (0-0.8); Hematocrit 46.6 % (41.0-53.0); Hemoglobin 15.4 g/dL (13.5-17.5); Lymphocytes # (auto) 2.3 10 ^3/uL (0.4-5.4); Lymphocytes % (auto) 24.1 % (10.0-50.0); Mean Corpuscular Volume 100.1 fL (80.0-100.0); Monocytes # (auto) 0.6 10 ^3/uL (0-1.3); Neutrophils # (auto) 6.4 10 ^3/uL (1.6-8.6); Neutrophils % (auto) 67.9 % (37.0-80.0); Platelet Count (auto) 190 10^3/uL (140-450); Red Blood Cells 4.66 10^6/uL (4.5-5.90); Red Cell Distribution Width 14.8 % (11.8-14.3); White Blood Cell 9.4 10^3/uL (4.4-10.8)
[2024-03-17 14:25] LABS: Alanine Aminotransferase 29 U/L (7-40); Alkaline Phosphatase 103 U/L (46-116); Aspartate Aminotransferase 28 U/L (13-40); BUN/Creatinine Ratio 13.5 (10.0-20.0); Bilirubin, Total 0.3 mg/dL (0.2-1.0); Blood Urea Nitrogen 20 mg/dL (9-23); Calcium 8.8 mg/dL (8.7-10.4); Chloride 101 mmol/L (98-107); Glucose 126 mg/dL (74-106); Potassium 4.1 mmol/L (3.5-5.1); Sodium 140 mmol/L (136-145); Total Protein 5.9 g/dL (5.7-8.2)
[2024-03-17 14:33] LABS: Anion Gap -1.00001 (5-15); Carbon Dioxide > 40 mmol/L (20-31)
--- NOTE | 2024-03-17 14:47 | DVH ---
XY CHEST TWO VIEWS ROUTINE CLINICAL HISTORY: DYSPNEA COMPARISON: None TECHNIQUE: Frontal and lateral view of the chest was obtained FINDINGS: Lines and Tubes: None Lungs: No focal consolidation. Mild pulmonary vascular congestion. Pleura: No effusion. No pneumothorax. Cardiomediastinal contours:Mild cardiomegaly. Bones: No acute osseous abnormality. IMPRESSION: Mild pulmonary vascular congestion.
[2024-03-17 15:45] VITALS: PULSE 57; RESP 14; O2SAT 96
[2024-03-17] MEDS: FUROSEMIDE 40 MG/4 ML VIAL IV ONE (17:50)
[2024-03-17 18:10] LABS: Alanine Aminotransferase 28 U/L (7-40); Alkaline Phosphatase 106 U/L (46-116); Anion Gap 4 (5-15); Aspartate Aminotransferase 27 U/L (13-40); BUN/Creatinine Ratio 12.3 (10.0-20.0); Blood Urea Nitrogen 18 mg/dL (9-23); Calcium 9.2 mg/dL (8.7-10.4); Carbon Dioxide 35 mmol/L (20-31); Chloride 102 mmol/L (98-107); Glucose 94 mg/dL (74-106); Potassium 4.2 mmol/L (3.5-5.1); Sodium 141 mmol/L (136-145)
[2024-03-17 18:11] LABS: Bilirubin, Total 0.2 mg/dL (0.2-1.0); Total Protein 6.5 g/dL (5.7-8.2)
[2024-03-17 18:50] LABS: Urine Bacteria None Seen /hpf (None Seen)
[2024-03-17 19:02] LABS: Urine Blood Negative /uL (Negative); Urine Clarity Clear (Clear); Urine Color Light-Yellow (Yellow); Urine Mucus FEW (None Seen); Urine Protein, UAD Negative (Negative); Urine Specific Gravity 1.015 (1.001-1.035); Urine Urobilinogen Normal (Negative); Urine WBC 1 /hpf (0 - 3)
[2024-03-17 19:38] VITALS: PULSE 77; RESP 13; O2SAT 96
[2024-03-17] MEDS ORDERED: DOCUSATE SOD 100 MG CAP PO PRN (21:00)
[2024-03-17] MEDS ORDERED: MORPHINE SULFATE INJ 2 MG/ml SYRG IV PRN (21:00)
[2024-03-17] MEDS ORDERED: NITROGLYCERIN 0.4 MG SL TAB SL PRN (21:00)
[2024-03-17] MEDS ORDERED: ACETAMINOPHEN 325 MG TAB PO PRN (21:00)
[2024-03-17 21:57] VITALS: BP 130/46; PULSE 77; RESP 14; O2SAT 95
[2024-03-17] MEDS: methylPREDNISolone SOD SUCC 40 MG/ML VL IV SCH (22:00)
[2024-03-17] MEDS: SODIUM CHLOR 0.9% PF (SALINE LOCK) 10ML VIAL/SYR IV SCH (22:00)
[2024-03-17] MEDS ORDERED: IPRATROPIUM BROM 0.5 MG/2.5ML INH SOL NEB PRN (22:00)
[2024-03-17] MEDS ORDERED: ALBUTEROL SULF 2.5 MG/0.5ML(0.5%) NEB SOLN NEB PRN (22:00)
[2024-03-17] MEDS: SODIUM CHLORIDE 0.9% 1,000 ML IV SCH (22:00)
--- NOTE | 2024-03-17 22:06 | DVHHPRES ---
History of Present Illness Resident Creating Document: OMAR FLETCHER RESIDENT History of Present Illness This is a 63-year-old male with past medical history of COPD, epilepsy presented to the ED with a chief complaint of shortness of breath. Patient reports that he has been experiencing increasing SOB for the past 2 weeks when exerting himself. Patient relays that he had visited his [employer] operator Dr. Garza today for clearance for an upcoming surgery next month for his back at [facility], however, he was noted to have a low O2 saturation (unknown number), so he was advised to either visit [facility] or come to the ED for further evaluation. He also complaint of lower urinary tract symptoms hesitancy, urgency ,dysuria and pain especially when coughing or sneezing for last 2 weeks. He denies chest pain , has a breaths, dizziness, diaphoresis, nausea, vomiting or any change in bowel habit. PCP: Dr. Cabrera Cardiology: Dr. Garza Past Medical History COPD, epilepsy Past Surgical History Knee surgery, hand surgery, right shoulder surgery and brain surgery in 2020 for epilepsy Past Social History Smoker, used to smoke 2 pack per day for 40 years and now smokes 7 to 8 cigarettes/ day, nonalcoholic and never used any other drugs Lives alone Review of Systems Constitutional: Yes: Chills, Malaise; No: Fever, Sweats, Weakness, Other Eyes: No: Pain, Vision change, Conjunctivae inflammation, Eyelid inflammation, Other, Redness ENT: No: Ear pain, Ear discharge, Nose pain, Nose discharge, Nose congestion, Mouth pain, Mouth swelling, Throat pain, Throat swelling, Other Respiratory: Cough, Shortness of breath, SOB with excertion, Sputum; No: Dry, Wheezing, Hemoptysis, Pleuritic Pain, Wheezing, Other Cardiovascular: Edema; No: Chest Pain, Palpitations, Orthopnea, Paroxysmal Noc. Dyspnea, Lt Headedness, Other Gastrointestinal: No: Nausea, Vomiting, Abdominal Pain, Diarrhea, Constipation, Melena, Hematochezia, Other Genitourinary: Dysuria, Frequency; No Incontinence, No Hematuria, No Retention, No Other Musculoskeletal: No: other, neck pain, shoulder pain, arm pain, back pain, hand pain, leg pain, foot pain Skin: No: Rash, Lesions, Jaundice, Bruising, Other Neurological: No: Weakness, Numbness, Incoordination, Change in speech, Confusion, Seizures, Other Allergies: Coded Allergies: NO KNOWN ALLERGIES (Unverified , 06/13/19) Medications Current Medications Medications Dose Ordered Sig/Kerrie Route Start Time Stop Time Status Last Admin Dose Admin Sodium Chloride 10 ml Q8HR IV 03/17/24 22:00 Acetaminophen 325 mg Q4HP PRN PO 03/17/24 21:00 Acetaminophen/ Hydrocodone Bitart 1 tab Q4HP PRN PO 03/17/24 21:00 Docusate Sodium 100 mg BIDPRN PRN PO 03/17/24 21:00 Nitroglycerin 0.4 mg Q5MINP PRN SL 03/17/24 21:00 Morphine Sulfate 2 mg Q30M PRN IV 03/17/24 21:00 Methylprednisolone Sodium Succinate 40 mg BID IV 03/17/24 22:00 Ceftriaxone Sodium 50 ml @ 100 mls/hr DAILY@09 IV 03/18/24 09:00 Azithromycin 250 ml @ 125 mls/hr DAILY IV 03/18/24 10:00 Albuterol 2.5 mg Q4HPRN PRN NEB 03/17/24 22:00 Ipratropium [place] 0.5 mg Q4HPRN PRN NEB 03/17/24 22:00 Sodium Chloride 1,000 ml @ 75 mls/hr [id number] IV 03/17/24 22:00 Exam Vital Signs Vital Signs Date Time Temp Pulse Resp B/P (MAP) Pulse Ox O2 Delivery O2 Flow Rate FiO2 03/17/24 21:57 77 14 130/46 95 3.0 03/17/24 19:38 Nasal Cannula* 32 03/17/24 19:37 98.4 98.4 Exam Physical examination: General Appearance: Alert, Oriented X3, Cooperative, No acute distress HEENT: Atraumatic, PERRLA, EOMI, Mucous membrane moist/pink Respiratory: Mild wheezing and crackles bilaterally. Cardiovascular: Regular rate, Normal S1, Normal S2, No murmurs, no chest wall tenderness Abdominal: Normal bowel sounds, Soft, No tenderness, No hepatospenomegaly, No masses Extremities: Pedal edema +, No cyanosis, No edema, Normal pulses, No tenderness/swelling Skin: No rashes, No breakdown, No significant lesion Neuro: Normal gait, Normal speech, Strength at 5/5 X4 ext, Normal tone, Sensation intact, grossly intact cranial nerves Psych/Mental Status: Mental status NL, Mood NL Labs/Xrays Labs Test 03/17/24 21:35 03/17/24 19:16 03/17/24 18:45 03/17/24 16:40 Range/Units Troponin I High Sensitivity 6 </=54 ng/L Thyroid Stimulating Hormone (TSH) 3.77 0.55-4.78 uIU/mL Urine Color Light-yellow Yellow Urine Clarity Clear Clear Urine pH 6.0 5.0-9.0 Urine Specific [place] 1.015 1.001-1.035 Urine Protein Negative Negative Urine Ketones Negative Negative Urine Blood Negative Negative /uL Urine Nitrite Negative Negative Urine Bilirubin Negative Negative Urine Urobilinogen Normal Negative mg/dL Urine Leukocyte Esterase Negative Negative /uL Urine RBC 4 0 - 3 /hpf Urine WBC 1 0 - 3 /hpf Urine Squamous Epithelial Cells None seen <5 /hpf Urine Bacteria None seen None Seen /hpf Urine Mucus Few None Seen Urine Glucose Normal Normal mg/dL Sodium Level 141 136-145 mmol/L Potassium Level 4.2 3.5-5.1 mmol/L Chloride Level 102 98-107 mmol/L Carbon Dioxide Level 35 H 20-31 mmol/L Anion Gap 4 L 5-15 Blood Urea Nitrogen 18 9-23 mg/dL Creatinine 1.46 H 0.700-1.30 mg/dL Glomerular Filtration Rate Calc 53 >90 mL/min BUN/Creatinine Ratio 12.3 10.0-20.0 Serum Glucose 94 74-106 mg/dL Calcium Level 9.2 8.7-10.4 mg/dL Total Bilirubin 0.2 0.2-1.0 mg/dL Aspartate Amino Transferase (AST) 27 13-40 U/L Alanine Aminotransferase (ALT) 28 7-40 U/L Alkaline Phosphatase 106 46-116 U/L Total Protein 6.5 5.7-8.2 g/dL Albumin 4.0 3.2-4.8 g/dL Test 03/17/24 13:45 Range/Units White Blood Count 9.4 4.4-10.8 10^3/uL Red Blood Count 4.66 4.5-5.90 10^6/uL Hemoglobin 15.4 13.5-17.5 g/dL Hematocrit 46.6 41.0-53.0 % Mean Corpuscular Volume 100.1 H 80.0-100.0 fL Mean Corpuscular Hemoglobin 33.0 H 28.0-32.0 pg Mean Corpuscular Hemoglobin Concent 33.0 32.0-36.0 g/dL Red Cell Distribution Width 14.8 H 11.8-14.3 % Platelet Count 190 140-450 10^3/uL Mean Platelet Volume 8.0 6.9-10.8 fL Neutrophils (%) (Auto) 67.9 37.0-80.0 % Lymphocytes (%) (Auto) 24.1 10.0-50.0 % Monocytes (%) (Auto) 6.0 0.0-12.0 % Eosinophils (%) (Auto) 1.0 0.0-7.0 % Basophils (%) (Auto) 1.0 0.0-2.0 % Neutrophils # (Auto) 6.4 1.6-8.6 10 ^3/uL Lymphocytes # (Auto) 2.3 0.4-5.4 10 ^3/uL Monocytes # (Auto) 0.6 0-1.3 10 ^3/uL Eosinophils # (Auto) 0.1 0-0.8 10 ^3/uL Basophils # (Auto) 0.1 0-0.2 10 ^3/uL Nucleated Red Blood Cells 0.0 % B-Type Natriuretic Peptide 38.78 0-100 pg/mL Assessment/Plan Assessment/Plan Assessment and plan: # Acute respiratory failure likely due to acute exacerbation of COPD - patient is on 3 L oxygen with saturation 96% # Possible acute exacerbation of chronic COPD - DuoNeb treatment with albuterol and ipratropium q.4 hours p.r.n. - IV methylprednisolone 40 mg b.i.d. - IV azithromycin 500 mg daily - Covid and flu are negative # KOJO likely secondary to hemodynamically mediated/VMN - IV normal saline at 75 mL/hour - Monitor BMP # Prediabetic - Counseled patient regarding weight loss, lifestyle modification and physical exercise # History of epilepsy - Continue home meds # Possible BPH - Ordered bladder scan - Flomax 0.4 mg p.o. daily # DVT prophylaxis - Heparin 5000 units SC b.i.d. Goal of care discussed with the patient for more than 20 minutes full code Plan of treatment discussed with Dr. Arredondo Plan discussed with: Patient, Other My Orders Orders - OMAR FLETCHER RESIDENT Procedure Category Date Status Time Admit ADMIT 03/17/24 Transmitted 20:55 Code Status CODE 03/17/24 Transmitted 20:55 Sodium Chloride Lock PHA 03/17/24 In Process (Saline Lock Ns) 22:00 Oxygen Per Hour RT 03/17/24 Transmitted 20:55 Acetaminophen Tablet PHA 03/17/24 In Process (Tylenol Tablet) 21:00 Hydrocodone-Acet PHA 03/17/24 In Process 5/325mg Tab ([place] 21:00 Docusate Sodium PHA 03/17/24 In Process Capsule (Colace 21:00 Complete Blood Count LAB 03/18/24 Verified 04:00 Comprehensive LAB 03/18/24 Verified Metabolic Panel 04:00 Pt Request For Service PT 03/17/24 Logged 20:55 Echo 2d Mode Cardiac US 03/17/24 Logged DOP 20:55 Nitroglycerin PHA 03/17/24 In Process Sublingual (Ntrostat 21:00 Morphine Sulfate PHA 03/17/24 In Process Injection 21:00 Oxygen By Nasal RT 03/17/24 Transmitted Cannula 20:55 Stat Ekg For Chest STEF 03/17/24 In Process Pain 20:55 Notify Md Of Changes STEF 03/17/24 In Process From Base 20:55 Pressed Or Blown Glass Worker For STEF 03/17/24 In Process 24 Hours 20:55 Emergency Dysrhythmia STEF 03/17/24 In Process Protocol 20:55 Rhythm Strips Once STEF 03/17/24 In Process Every Shift 20:55 Hemoglobin A1c LAB 03/17/24 In Process 21:10 Vitamin B12 LAB 03/17/24 In Process 21:10 Vitamin D, 25-Hydroxy LAB 03/17/24 In Process 21:10 Methylprednisolone PHA 03/17/24 In Process Sod Succ (Solu Medrol 22:00 Ceftriaxone 1gm/50ml PHA 03/18/24 In Process D5w (Rocephin) 09:00 Ceftriaxone 1gm/50ml PHA 03/17/24 In Process D5w (Rocephin) 21:45 Azithromycin 500mg/ PHA 03/18/24 In Process 250ml (Zithromax 50 10:00 Azithromycin 500mg/ PHA 03/17/24 In Process 250ml (Zithromax 50 22:15 Covid19 Antigen Ursula LAB 03/17/24 In Process Rapid Influenza A&B LAB 03/17/24 In Process 21:13 Albuterol Medneb PHA 03/17/24 In Process (Ventolin Medneb) 22:00 Ipratropium Medneb PHA 03/17/24 In Process (Atrovent Medneb) 22:00 Sodium Chloride 0.9% PHA 03/17/24 In Process 22:00 OMAR FLETCHER RESIDENT Mar 17, 2024 22:06
[2024-03-17] MEDS: AZITHROMYCIN 500MG/ 250ML 250 ML IV ONE (22:15)
[2024-03-17 22:45] LABS: COVID19 ANTIGEN SOFIA FIA NEGATIVE (NEGATIVE)
[2024-03-17 22:46] LABS: Rapid Influenza A Negative (Negative); Rapid Influenza B Negative (Negative)
[2024-03-17] MEDS: cefTRIAXone 1GM/50ML D5W 50 ML IV ONE (23:25)
[2024-03-18] VITALS (9 sets, daily range): BP systolic 113–139; BP diastolic 24–87; PULSE 40–76; RESP 16–20; TEMP 97.9–98.8; O2SAT 90–98
[2024-03-18] MEDS ORDERED: DOXY100C4 PO (01:40)
[2024-03-18] MEDS ORDERED: ATOR-507 PO (01:40)
[2024-03-18] MEDS ORDERED: FURO40TA4 PO (01:40)
[2024-03-18] MEDS ORDERED: BUPR75TA96 PO (01:40)
[2024-03-18] MEDS ORDERED: MELO15TA29 PO (01:40)
[2024-03-18] MEDS ORDERED: CHOL20007 PO (01:40)
[2024-03-18] MEDS ORDERED: GABA-1250 PO (01:40)
[2024-03-18] MEDS ORDERED: LOSA-533 PO (01:40)
[2024-03-18] MEDS ORDERED: VARE1TAB32 PO (01:40)
[2024-03-18] MEDS ORDERED: DIPH-753 PO (01:48)
[2024-03-18] MEDS ORDERED: PRED20TA2 PO (01:49)
[2024-03-18 06:30] LABS: Alkaline Phosphatase 112 U/L (46-116); Anion Gap 4 (5-15); Aspartate Aminotransferase 52 U/L (13-40); Calcium 9.1 mg/dL (8.7-10.4); Carbon Dioxide 34 mmol/L (20-31); Chloride 99 mmol/L (98-107); Glucose 84 mg/dL (74-106); Sodium 137 mmol/L (136-145)
[2024-03-18 06:31] LABS: Bilirubin, Total 0.5 mg/dL (0.2-1.0); Total Protein 6.8 g/dL (5.7-8.2)
[2024-03-18 06:33] LABS: Alanine Aminotransferase 29 U/L (7-40); Albumin 4.4 g/dL (3.2-4.8); BUN/Creatinine Ratio 11.7 (10.0-20.0); Blood Urea Nitrogen 15 mg/dL (9-23); Potassium 5.2 mmol/L (3.5-5.1)
[2024-03-18] MEDS: HYDROcodone-ACET 5/325MG TAB PO PRN (08:16)
[2024-03-18] MEDS ORDERED: cefTRIAXone 1GM/50ML D5W 50 ML IV SCH (09:00)
[2024-03-18 09:17] LABS: Basophils # (auto) 0.1 10 ^3/uL (0-0.2); Basophils % (auto) 0.7 % (0.0-2.0); Eosinophils # (auto) 0.2 10 ^3/uL (0-0.8); Eosinophils % (auto) 1.6 % (0.0-7.0); Hematocrit 53.1 % (41.0-53.0); Hemoglobin 17.5 g/dL (13.5-17.5); Lymphocytes # (auto) 1.6 10 ^3/uL (0.4-5.4); Lymphocytes % (auto) 16.5 % (10.0-50.0); Mean Corpuscular Hemoglobin 32.6 pg (28.0-32.0); Mean Corpuscular Hgb Conc. 32.9 g/dL (32.0-36.0); Mean Corpuscular Volume 98.9 fL (80.0-100.0); Monocytes # (auto) 0.8 10 ^3/uL (0-1.3); Monocytes % (auto) 7.8 % (0.0-12.0); Neutrophils # (auto) 7.1 10 ^3/uL (1.6-8.6); Neutrophils % (auto) 73.4 % (37.0-80.0); Nucleated Red Blood Cells % 0.1 %; Platelet Count (auto) 199 10^3/uL (140-450); Red Blood Cells 5.37 10^6/uL (4.5-5.90); Red Cell Distribution Width 14.5 % (11.8-14.3); White Blood Cell 9.7 10^3/uL (4.4-10.8)
[2024-03-18 09:51] LABS: Hepatitis B Surface Antigen Negative (Negative)
[2024-03-18] MEDS ORDERED: NICOTINE 14 MG/24HR TOPICAL PATCH TD SCH (10:00)
[2024-03-18] MEDS: TOPIRAMATE 100 MG TAB PO SCH (10:00)
[2024-03-18] MEDS: HEPARIN SODIUM (PORCINE) 5000 UNITS/ML 1ML VIAL SC SCH (10:03)
[2024-03-18] MEDS: AZITHROMYCIN 500MG/ 250ML 250 ML IV SCH (10:08)
[2024-03-18 10:12] LABS: Hepatitis C Antibody Negative (Negative)
--- NOTE | 2024-03-18 14:18 | DVHSR ---
APPROVED REPORT EXAM: LIMITED Two-dimensional and M-mode echocardiogram with Doppler and color Doppler. Blood Pressure: 125/87 mmHg INDICATION Shortness of breath RISK FACTORS Obesity: Height: 5' 10", Weight: 287 DIMENSIONS LVDd5.2 (3.8-5.7cm)LA (2D)4.2 (1.9-4.0cm)Aortic Root4.1 (2.0-3.7cm) LVDs3.4 (2.5-4.0cm)LA (MM) (1.9-4.0cm)Aortic Cusp Exc1.8 (1.5-2.0cm) EF (%) 65.0 (55-70%)Rt. Atrium3.7 (1.9-4.0cm)Asc. Aorta cm IVSd1.1 (0.7-1.1cm)RV (D) (1.8-2.4cm) PWd1.1 (0.7-1.1cm) Mitral Valve MitralMitral Stenosis E wave1.20m/sMV Mean GR.mmHg A wave1.10m/sMV Peak GR.mmHg E/A ratio1.12D MVAcm2 Aortic Valve Aortic ValveAortic Stenosis V10.70m/Balta Mean GR.3mmHg V21.30m/Balta Peak GR.7mmHg LVOT Diameter2.5 (1.8-2.4cm)Doppler AVA2.64cm2 Other Information Quality : Technically LimitedRhythm : Technically limited study due to body habitus. Conclusion Normal left ventricular size and dimension. Normal left ventricular systolic estimated ejection frac tion 55%. There is a grade 2 diastolic dysfunction. Normal right ventricular size and dimension. Normal right ventricular systolic function. Normal biatrial size and dimension. Normal aortic valve structure and function. Normal mitral valve structure and function. Normal tricuspid valve structure and function. The pulmonary valve is grossly normal. No pericardial effusion.
[2024-03-18] MEDS ORDERED: AZIT500T PO (14:26)
[2024-03-18] MEDS ORDERED: METH4PAK PO (14:26)
[2024-03-18] MEDS ORDERED: AZIT-74 PO (14:26)
--- NOTE | 2024-03-18 14:34 | DVHDSRES ---
Discharge Summary Date of Admission Resident Creating Document: OMAR FLETCHER RESIDENT Mar 17, 2024 at 20:55 Date of Discharge: Mar 18, 2024 Admitting Diagnosis Acute shortness of breath Wounds: No wounds present at this time. Labs/Diagnostic Data: Laboratory Results Test 03/18/24 08:34 03/18/24 05:43 03/17/24 21:35 03/17/24 19:16 White Blood Count 9.7 10^3/uL (4.4-10.8) Red Blood Count 5.37 10^6/uL (4.5-5.90) Hemoglobin 17.5 g/dL (13.5-17.5) Hematocrit 53.1 % (41.0-53.0) Mean Corpuscular Volume 98.9 fL (80.0-100.0) Mean Corpuscular Hemoglobin 32.6 pg (28.0-32.0) Mean Corpuscular Hemoglobin Concent 32.9 g/dL (32.0-36.0) Red Cell Distribution Width 14.5 % (11.8-14.3) Platelet Count 199 10^3/uL (140-450) Mean Platelet Volume 8.0 fL (6.9-10.8) Neutrophils (%) (Auto) 73.4 % (37.0-80.0) Lymphocytes (%) (Auto) 16.5 % (10.0-50.0) Monocytes (%) (Auto) 7.8 % (0.0-12.0) Eosinophils (%) (Auto) 1.6 % (0.0-7.0) Basophils (%) (Auto) 0.7 % (0.0-2.0) Neutrophils # (Auto) 7.1 10 ^3/uL (1.6-8.6) Lymphocytes # (Auto) 1.6 10 ^3/uL (0.4-5.4) Monocytes # (Auto) 0.8 10 ^3/uL (0-1.3) Eosinophils # (Auto) 0.2 10 ^3/uL (0-0.8) Basophils # (Auto) 0.1 10 ^3/uL (0-0.2) Nucleated Red Blood Cells 0.1 % Hepatitis B Surface Antigen Negative (Negative) Hepatitis C Antibody Negative (Negative) Sodium Level 137 mmol/L (136-145) Potassium Level 5.2 mmol/L (3.5-5.1) Chloride Level 99 mmol/L (98-107) Carbon Dioxide Level 34 mmol/L (20-31) Anion Gap 4 (5-15) Blood Urea Nitrogen 15 mg/dL (9-23) Creatinine 1.28 mg/dL (0.700-1.30) Glomerular Filtration Rate Calc 63 mL/min (>90) BUN/Creatinine Ratio 11.7 (10.0-20.0) Serum Glucose 84 mg/dL (74-106) Calcium Level 9.1 mg/dL (8.7-10.4) Total Bilirubin 0.5 mg/dL (0.2-1.0) Aspartate Amino Transferase (AST) 52 U/L (13-40) Alanine Aminotransferase (ALT) 29 U/L (7-40) Alkaline Phosphatase 112 U/L (46-116) Total Protein 6.8 g/dL (5.7-8.2) Albumin 4.4 g/dL (3.2-4.8) Influenza Type A Antigen Negative (Negative) Influenza Type B Antigen Negative (Negative) SARS-CoV-2 Antigen (Rapid) Negative (NEGATIVE) Troponin I High Sensitivity 6 ng/L (</=54) Thyroid Stimulating Hormone (TSH) 3.77 uIU/mL (0.55-4.78) Test 03/17/24 18:45 03/17/24 13:45 Urine Color Light-yellow (Yellow) Urine Clarity Clear (Clear) Urine pH 6.0 (5.0-9.0) Urine Specific [place] 1.015 (1.001-1.035) Urine Protein Negative (Negative) Urine Ketones Negative (Negative) Urine Blood Negative /uL (Negative) Urine Nitrite Negative (Negative) Urine Bilirubin Negative (Negative) Urine Urobilinogen Normal mg/dL (Negative) Urine Leukocyte Esterase Negative /uL (Negative) Urine RBC 4 /hpf (0 - 3) Urine WBC 1 /hpf (0 - 3) Urine Squamous Epithelial Cells None seen /hpf (<5) Urine Bacteria None seen /hpf (None Seen) Urine Mucus Few (None Seen) Urine Glucose Normal mg/dL (Normal) Hemoglobin A1c 5.9 % A1C (<5.7) B-Type Natriuretic Peptide 38.78 pg/mL (0-100) Vitamin B12 Level 408 pg/mL (211-911) Vitamin D 25-Hydroxy 37.3 ng/mL (30.0-100) Other Laboratory Tests 03/18/24 08:34 03/18/24 05:43 Brief Hx & Hospital Course: This is a 63-year-old male with past medical history of COPD, epilepsy, who presented to the ED with a chief complaint of shortness of breath. Patient reports that he has been experiencing increasing SOB for the past 2 weeks when exerting himself. Patient reports that he had visited his charge attendant Dr. Garza today for clearance for an upcoming surgery next month for his back at [facility], however, he was noted to have a low O2 saturation (unknown number), so he was advised to either visit [facility] or come to the ED for further evaluation. He also complaint of lower urinary tract symptoms hesitancy, urgency ,dysuria and pain especially when coughing or sneezing for last 2 weeks. U/A was sent but came back negative for UTI. Upon admission, he denied chest pain , has a breaths, dizziness, diaphoresis, nausea, vomiting or any change in bowel habit. Today, patient was re-evaluated at bedside, the patient was saturating 93% on 1 L of nasal cannula, patient denied chest pain, shortness of breath or any additional symptoms. Initial chest x-ray was grossly unremarkable. Echocardiogram was performed and preliminary reports showed a preserved ejection fraction. Patient was stating that was feeling well overall and wanted to be discharged home. We will discharge the patient home on azithromycin 500 mg 1st day then continue 250 mg q.d. for four additional days. We will also sent Medrol dose pack. Patient agrees and understands the plan. ROS Constitutional: Denies weight loss, fever and chills. HEENT: Denies changes in vision and hearing. Respiratory: Denies shortness of breath and cough Cardiovascular: Denies chest discomfort or palpitations GI: Denies abdominal pain, nausea, vomiting and diarrhea. : Denies dysuria and urinary frequency. Musculoskeletal: Denies myalgias and joint pain Skin: Denies rash and pruritus. Neurological: Denies dizziness, headache, vision or hearing problems Physical Examination General: Patient alert and oriented in person, place and time. Patient following commands. HEENT: Normocephalic, atraumatic, moist mucous membranes Respiratory/pulmonary: Clear lungs bilaterally, no associated crackles or wheezes. Cardiovascular: Normal heart sounds S1 and S2 with no associated murmurs Abdomen: Abdomen nondistended, there is no pain to palpation in any of the abdominal quadrants, no palpable masses. Extremities: There is no peripheral edema present at the lower extremities. Peripheral Pulses: 3+ Radial (R). 3+ Radial (L). 3+ Dorsalis pedis (R). 3+ Dorsalis pedis(L) Skin: No rashes or pruritus, there is no sacral edema present at this time. Neurological: Intact cranial nerves with no focal neurologic deficits Consults/Reason for consult N/A Operations or Procedures XY CHEST TWO VIEWS ROUTINE CLINICAL HISTORY: DYSPNEA COMPARISON: None TECHNIQUE: Frontal and lateral view of the chest was obtained FINDINGS: Lines and Tubes: None Lungs: No focal consolidation. Mild pulmonary vascular congestion. Pleura: No effusion. No pneumothorax. Cardiomediastinal contours:Mild cardiomegaly. Bones: No acute osseous abnormality. IMPRESSION: Mild pulmonary vascular congestion. Condition at Discharge: Stable Final Diagnosis/Problems List Acute respiratory failure likely due to acute exacerbation of COPD Possible acute exacerbation of chronic COPD KOJO likely secondary to hemodynamically mediated/VMN Prediabetic History of epilepsy Possible BPH Discharge Disposition: Home Discharge Instruct/Medications Diet: Regular Activity: No Restrictions, As Tolerated Follow Up/Referral: F/U with his PCP in 1 week Medications: Azithromycin 500mg daily on day 1 and then 250mg QD for 4 additional days (total of 5 days) Medrol dose pack Discharge Statement: "Patient was advised to return to the ER or call 911 if any headaches, dizziness, shortness of breath, chest pain, abdominal pain, bleeding, fevers, or worsening of medical condition. Patient was counseled about treatment plan, medications, possible side effects, patientverbalized understanding. All questions were answered to the best of my ability. This discharge took greater then 30 minutes in planning, reviewing documentation, counseling the patient, and discussing with other team members." ASSESSMENT ASSESSMENT Assessment Acute respiratory failure likely due to acute exacerbation of COPD Possible acute exacerbation of chronic COPD KOJO likely secondary to hemodynamically mediated/VMN Prediabetic History of epilepsy Possible BPH Date of Service: Mar 18, 2024 Billing Provider: JENA PUCKETT MD Common Visit Codes: 07936-ZFY/OBS DISCH DAY >30min NATHAN GEE RESIDENT Mar 18, 2024 14:34 JENA PUCKETT MD Mar 21, 2024 21:42
[2024-03-18] MEDS ORDERED: TAMSULOSIN HYDROCHLORIDE 0.4 MG CAP PO SCH (18:00)
[2024-03-18] MEDS ORDERED: traZODone HCL 50 MG TAB PO SCH (22:00)
== END 2024-03-18 16:44 | disposition home or self-care (01) | DRG 133 ==
LOC: ER 13:03 → TELE 20:55 → TELE-WESTW 21:07
PROVIDERS: ATTEND Emergency Medicine
DX: J96.01 Acute respiratory failure with hypoxia (principal); N17.0 Acute kidney failure with tubular necrosis; I50.9 Heart failure, unspecified; I11.0 Hypertensive heart disease with heart failure; R39.11 Hesitancy of micturition; J44.1 Chronic obstructive pulmonary disease with (acute) exacerbation; F17.210 Nicotine dependence, cigarettes, uncomplicated; G40.909 Epilepsy, unspecified, not intractable, without status epilepticus; R73.03 Prediabetes; N40.1 Benign prostatic hyperplasia with lower urinary tract symptoms; R39.15 Urgency of urination; Z96.652 Presence of left artificial knee joint; Z79.4 Long term (current) use of insulin; Z79.899 Other long term (current) drug therapy
CPT/HCPCS: 36415; 71046; 80053; 81001; 82306; 82607; 83036; 83880; 84443; 84484; 85025; 86803; 87340; 87426; 87804; 93306; 97163; G0378

== ENCOUNTER 2024-05-23 10:39 | Emergency (ER) | payer MEDICAID ==
[~2024-05-23] VITALS: Ht 177.8 cm; Wt 125.6 kg
[~2024-05-23 10:39] MED LIST changes: +ATOR-507 PO; +AZIT-74 PO; +AZIT500T PO; +BUPR75TA96 PO; +CHOL20007 PO; +DIPH-753 PO; +DOXY100C4 PO; +FURO40TA4 PO; +GABA-1250 PO; +LOSA-533 PO; +MELO15TA29 PO; +METH4PAK PO; +VARE1TAB32 PO
[2024-05-23] MEDS ORDERED: IBUP1TAB5 PO (12:11)
[2024-05-23] MEDS ORDERED: HYDR-4798 PO (12:11)
--- NOTE | 2024-05-23 12:12 | ED.PDOC ---
Back pain HPI HPI Comments 63-year-old male patient presents to the emergency room for lower back pain. Patient reports that he had surgery on his lower back on April 27. Patient had a fusion from L4-S1. Patient states that he was taking morphine for the pain but ran out yesterday. Patient has a new appointment with his surgeon on May 26. Patient believes that he exacerbated the pain yesterday while trying to put some foam pads onto to his bed. Patient got a ride hospital and will be taking a ride home. Chief Complaint: Back Pain Time Seen by MD: 10:55 Primary Care Provider: TRICIA Allergies: Coded Allergies: NO KNOWN ALLERGIES (Unverified , 06/13/19) Home Meds Active Scripts Ibuprofen Micronized (Ibuprofen) 600 Mg Tab, 600 MG PO Q8HR PRN for 30 Days, #90 TAB 0 Refills Prov:TAYLOR MO [facility] 05/23/24 Hydrocodone-Acetaminophen (Hydrocodone Bitartrate/AC 10-325 mg) 1 Tab Tab, 1 TAB PO Q6HP PRN for 4 Days, #16 TAB 0 Refills Prov:TAYLOR MO [facility] 05/23/24 Methylprednisolone (Medrol Dosepak) 4 Mg Khanh, 4 MG PO UD, #21 TAB UAD Prov:NATHAN GEE RESIDENT 03/18/24 Azithromycin (Zithromax) 500 Mg Tab, 500 MG PO DAILY for 1 Day, #1 TAB Prov:NATHAN GEE RESIDENT 03/18/24 Azithromycin (Zithromax) 250 Mg Tab, 250 MG PO DAILY for 4 Days, #4 TAB Prov:NATHAN GEE RESIDENT 03/18/24 Hydrocodone-Acetaminophen (Hydrocodone Bitartrate/AC 5-325 mg) 1 Tab Tab, 1 TAB PO Q8HP PRN for 5 Days, #15 TAB Prov:CHIKA IZQUIERDO MD 07/08/23 Acetaminophen (Tylenol Extra Strength Fo) 500 Mg Tab, 650 MG PO TID, #30 TAB Prov:KADE MOISE 05/08/23 Cephalexin ( Keflex 500) 500 Mg Cap, 1 CAP PO QID for 7 Days, #28 CAP 0 Refills Prov:SUSANNA RIVERA [facility] 04/28/22 Lidocaine (LIDODERM 5% TOPICAL PATCH) 1 Patch Ph, 1 PATCH TOP DAILY PRN, #30 PATCH 1 Refill Prov:SUSANNA RIVERA [employer] 04/28/22 Ibuprofen Micronized (Ibuprofen) 600 Mg Tab, 600 MG PO Q8HPRN PRN, #30 TAB 0 Refills Prov:SUSANNA RIVERA [employer] 04/28/22 Reported Medications Prednisone (Prednisone) 20 Mg Tab, 50 MG PO BID, MG 03/18/24 Diphenhydramine Hcl (Diphenhydramine Hcl) 25 Mg Cap, 25 MG PO DAILYP PRN for SEIZURES, MG 03/18/24 Gabapentin (Gabapentin) 300 Mg Cap, 300 MG PO TID for 30 Days, MG 03/18/24 Doxycycline Hyclate (Doxycycline Hyclate) 100 Mg Cap, 100 MG PO BID, MG 03/18/24 Bupropion Hcl (Bupropion Hcl) 75 Mg Tab, 150 MG PO BID for 30 Days 03/18/24 Varenicline Tartrate (Varenicline Tartrate Cont) 1 Mg Tab, 1 MG PO BID, TAB 03/18/24 Atorvastatin Calcium (Lipitor) 40 Mg Tab, 1 TAB PO QPM, #90 TAB 1 Refill 03/18/24 Cholecalciferol (VITAMIN D3) 2,000 Unit Tab, 1 TAB PO DAILY, #30 TAB 5 Refills 03/18/24 Meloxicam (Meloxicam) 15 Mg Tab, 1 TAB PO DAILY, #30 TAB 2 Refills 03/18/24 Furosemide (Furosemide) 40 Mg Tab, 40 MG PO DAILY for 30 Days 03/18/24 Losartan Potassium (Losartan Potassium) 25 Mg Tab, 1 TAB PO DAILY, #90 TAB 1 Refill 03/18/24 Nicotine (Nicotine Transdermal Syst) 14 Mg/24 Hr Dis, 14 MG TD DAILY, DIS 02/19/20 Fluticasone Propionate (Nasal) (Allergy Nasal [place] 24 Ho) 50 Mcg/Act Spr, 1 SPRAY NA DAILYP, SPRAY 02/19/20 Naproxen (NAPROSYN TABLET) 500 Mg Tb, 1 TAB PO BID, #60 TAB 1 Refill 06/19/17 Baclofen (Baclofen) 10 Mg Tab, 20 MG PO Q8HR for 30 Days, MG 06/19/17 Trazodone Hcl (Trazodone Hcl) 100 Mg Tab, 200 QHSP, 0 Refills 10/08/11 Topiramate (Topamax) 100 Mg Tab, 300 BID, 0 Refills 10/08/11 Divalproex Sodium (Depakote Er) 500 Mg Tab, 1500 BID, 0 Refills 10/08/11 Mode of Arrival: Ambulatory Past Medical History PAST MEDICAL HISTORY: Arthritis, CHF, CKF, COPD, HTN, Seizures Family History Family History: Reviewed,noncontributory to illness Social History Smoker: Cigarettes Alcohol: Occasionally Drugs: Denies Drug Use Lives In: Home Constitutional: denies: chills, diaphoresis, fatigue, fever, malaise, sweats, weakness, others EENTM: denies: blurred vision, double vision, ear bleeding, ear discharge, ear drainage, ear pain, ear ringing, eye pain, eye redness, hearing loss, mouth pain, mouth swelling, nasal discharge, nose bleeding, nose congestion, nose pain, photophobia, tearing, throat pain, throat swelling, voice changes, others Respiratory: denies: cough, hemoptysis, orthopnea, SOB at rest, shortness of breath, SOB with excertion, stridor, wheezing, others Cardiovascular: denies: chest pain, dizzy spells, diaphoresis, Dyspnea on exertion, edema, irregular heart beat, left arm pain, lightheadedness, palpitations, PND, syncope, others Gastrointestinal: denies: abdomen distended, abdominal pain, blood streaked bowels, constipated, diarrhea, dysphagia, difficulty swallowing, hematemesis, melena, nausea, poor appetite, poor fluid intake, rectal bleeding, rectal pain, vomiting, others Genitourinary: denies: burning, dysuria, flank pain, frequency, hematuria, incontinence, penile discharge, penile sore, pain, testicle pain, testicle swelling, urgency, others Neurological: denies: dizziness, fainting, headache, left sided numbness, left sided weakness, numbness, paresthesia, pre-existing deficit, right sided numbness, right sided weakness, seizure, speech problems, tingling, tremors, weakness, others Musculoskeletal: reports: back pain (Midline lower back, no radiation) Integumetry: denies: bruises, change in color, change in hair/nails, dryness, laceration, lesions, lumps, rash, wounds, others Allergic/Immunocompromised: denies: Difficulty Healing, Frequent Infections, Hives, Itching, others Hematologic/Lymphatic: denies: anemia, blood clots, easy bleeding, easy bruising, swollen glands, others Endocrine: denies: excessive hunger, excessive sweating, excessive thirst, excessive urination, flushing, intolerance to cold, intolerance to heat, unexplained weight gain, unexplained weight loss, others Psychiatric: denies: anxiety, bipolar disorder, depression, hopeless, panic disorder, schizophrenia, sleepless, suicidal, others All Other Systems: Reviewed and Negative Physical Exam General Appearance: No Apparent Distress, Normal HEENT: Normal ENT Inspection, Pharynx Normal, TMs Normal Neck: Full Range of Motion, Non-Tender, Normal, Normal Inspection Respiratory: Chest Non-Tender, Lungs Clear, No Accessory Muscle Use, No Respiratory Distress, Normal Breath Sounds Cardiovascular: No Edema, No JVD, No Murmur, No Gallop, Normal Peripheral Pulses, Regular Rate/Rhythm Breast Exam: Deferred Gastrointestinal: No Organomegaly, Non Tender, No Pulsatile Mass, Normal Bowel Sounds, Soft Genitalia: Deferred Pelvic: Deferred Rectal: Deferred Extremities: No calf tenderness, Normal capillary refill, Normal inspection, Normal range of motion, Non-tender, No pedal edema Musculoskeletal : Extremity Location: Back Apperance: Normal, Tenderness: Mild (Patient has mild tenderness to palpation to the lower back.) Neurologic: Alert, hand i blocker II-XII nml as Tested, No Motor Deficits, Normal Affect, Normal Mood, No Sensory Deficits Cerebellar Function: Normal Reflexes: Normal Skin: Dry, Normal Color, Warm Lymphatic: No Adenopathy Was a procedure done? Was a procedure done?: No Back Pain Differential Dx Differential Diagnosis: Fracture, Musculoskeletal Pain X-Ray, Labs, Meds, VS Vital Signs Date Time Temp Pulse Resp B/P (MAP) Pulse Ox O2 Delivery O2 Flow Rate FiO2 05/23/24 12:53 97.8 98 18 151/71 (97) 97 97.8 05/23/24 12:53 98 18 97 Room Air 05/23/24 10:45 98.1 87 20 159/103 (121) 95 Current Medications Medications (Trade) Dose Ordered Sig/Kerrie Route Start Time Stop Time Status Last Admin Acetaminophen/ Hydrocodone Bitart ([place] 10/325MG Tab) 1 tab ONCE ONCE PO 05/23/24 12:15 05/23/24 12:19 DC 05/23/24 12:42 Ketorolac Tromethamine (Toradol Injection) 60 mg ONCE ONCE IM 05/23/24 12:15 05/23/24 12:19 DC 05/23/24 12:43 X-Ray, Labs, Meds, VS Comment On re-evaluation patient has symptomatic improvement. Patient is stable for discharge at this time. All test results and diagnostic imaging have been interpreted. All diagnostic findings, discharge care, and education instruction provided to the patient. Follow-up with PCP in 2-3 days Patient verbalized understanding, discharge instructions and agrees to treatment plan Vital signs are stable Patient is ambulatory Patient advised of which symptoms necessitate a return visit to the emergency room. Patient to return emergency room for any new worsening symptoms. Patient is aware that the purpose of this visit is for an acute medical emergency requiring emergent stabilization. Chronic conditions, including ma lignancies have not been ruled out. Patient is instructed to follow up with PCP as directed for continued care and workup. If unable to arrange follow up, patient is to return to the emergency room for reassessment. Patient was given verbal and written discharge instructions and acknowledges understanding Time of 1ST Reevaluation: 13:01 Reevaluation 1ST: Improved Patient Education/Counseling: Diagnosis, Treatment, Prognosis Family Education/Counseling: No Family Present Departure 1 Departure Time of Disposition: 13:01 Impression: Primary Impression: Musculoskeletal pain Additional Impression: Lumbar back pain Disposition: 01 HOME / SELF CARE / HOMELESS Condition: Stable e-Prescriptions Ibuprofen Micronized (Ibuprofen) 600 Mg Tab 600 MG PO Q8HR PRN for 30 Days, #90 TAB 0 Refills Prov: TAYLOR MOP 05/23/24 Hydrocodone-Acetaminophen (Hydrocodone Bitartrate/AC 10-325 mg) 1 Tab Tab 1 TAB PO Q6HP PRN for 4 Days, #16 TAB 0 Refills Prov: TAYLOR MOP 05/23/24 Critical Care Note Critical Care Time?: No Stability Stability form required: No Heart Score Heart Score: Heart Score Response (Comments) Value History N/A 0 EKG N/A 0 Age N/A 0 Risk Factors N/A 0 Troponin N/A 0 Total 0 TAYLOR MOP May 23, 2024 12:12
[2024-05-23] MEDS: HYDROcodone-ACET 10/325MG TAB PO ONE (12:42)
[2024-05-23] MEDS: KETOROLAC TROMETH 60MG/2ML VIAL IM ONE (12:43)
[2024-05-23 12:53] VITALS: BP 151/71; PULSE 98; RESP 18; TEMP 97.8; O2SAT 97
== END 2024-05-23 13:47 | disposition home or self-care (01) ==
LOC: ER 10:39
DX: M54.59 Other low back pain (principal); J44.9 Chronic obstructive pulmonary disease, unspecified; I11.0 Hypertensive heart disease with heart failure; I50.89 Other heart failure; F17.210 Nicotine dependence, cigarettes, uncomplicated; Z79.899 Other long term (current) drug therapy
CPT/HCPCS: 96372; 99283; J1885

== ENCOUNTER 2024-05-27 09:58 | Emergency (ER) | payer MEDICAID ==
[~2024-05-27] VITALS: Ht 177.8 cm; Wt 125.3 kg
[~2024-05-27 09:58] MED LIST changes: +HYDR-4798 PO
[2024-05-27 10:39] VITALS: BP 160/72; PULSE 62; RESP 18; TEMP 98.2; O2SAT 96
[2024-05-27] MEDS ORDERED: IPRATROPIUM BROM 0.5 MG/2.5ML INH SOL NEB ONE (10:45)
[2024-05-27] MEDS ORDERED: KETOROLAC TROMETH 30 MG/ML 1ML VIAL IV ONE (10:45)
--- NOTE | 2024-05-27 10:49 | ED.PDOC ---
History of Present Illness HPI Comments 63 y/o M presents with c/o lower back pain, today. Patient endorses on recent [id number] spinal fusion surgery in April 27 and 2023 and having sudden and unprovoked onset of pain, last night, at around 1930. Patient comments further on being fine prior amidst most recent f/u with his physician following surgery, yesterday, in addition to running out of his "medication pills" that he is unable to recollect at time of assessment. Upon arrival to ED triage, patient was found with a low SpO2 sat and was placed on O2. Patient denies having any chest pain, shortness of breath, weakness, numbness, tingling, or other associated symptoms or modifiers at this time. Chief Complaint: Shortness of Breath Time Seen by MD: 10:30 Primary Care Provider: TRICIA Reviewed Notes: Nurses Notes, Medications, Allergies Allergies: Coded Allergies: NO KNOWN ALLERGIES (Unverified , 06/13/19) Home Meds Active Scripts Ibuprofen Micronized (Ibuprofen) 600 Mg Tab, 600 MG PO Q8HR PRN for 30 Days, #90 TAB 0 Refills Prov:TAYLOR MO [facility] 05/23/24 Hydrocodone-Acetaminophen (Hydrocodone Bitartrate/AC 10-325 mg) 1 Tab Tab, 1 TAB PO Q6HP PRN for 4 Days, #16 TAB 0 Refills Prov:TAYLOR MO [facility] 05/23/24 Methylprednisolone (Medrol Dosepak) 4 Mg Khanh, 4 MG PO UD, #21 TAB UAD Prov:NATHAN GEE RESIDENT 03/18/24 Azithromycin (Zithromax) 500 Mg Tab, 500 MG PO DAILY for 1 Day, #1 TAB Prov:NATHAN GEE RESIDENT 03/18/24 Azithromycin (Zithromax) 250 Mg Tab, 250 MG PO DAILY for 4 Days, #4 TAB Prov:NATHAN GEE RESIDENT 03/18/24 Hydrocodone-Acetaminophen (Hydrocodone Bitartrate/AC 5-325 mg) 1 Tab Tab, 1 TAB PO Q8HP PRN for 5 Days, #15 TAB Prov:CHIKA IZQUIERDO MD 07/08/23 Acetaminophen (Tylenol Extra Strength Fo) 500 Mg Tab, 650 MG PO TID, #30 TAB Prov:KADE MOISE 05/08/23 Cephalexin ( Keflex 500) 500 Mg Cap, 1 CAP PO QID for 7 Days, #28 CAP 0 Refills Prov:SUSANNA RIVERA [facility] 04/28/22 Lidocaine (LIDODERM 5% TOPICAL PATCH) 1 Patch Ph, 1 PATCH TOP DAILY PRN, #30 PATCH 1 Refill Prov:SUSANNA RIVERA [facility] 04/28/22 Ibuprofen Micronized (Ibuprofen) 600 Mg Tab, 600 MG PO Q8HPRN PRN, #30 TAB 0 Refills Prov:SUSANNA RIVERA [facility] 04/28/22 Reported Medications Prednisone (Prednisone) 20 Mg Tab, 50 MG PO BID, MG 03/18/24 Diphenhydramine Hcl (Diphenhydramine Hcl) 25 Mg Cap, 25 MG PO DAILYP PRN for SEIZURES, MG 03/18/24 Gabapentin (Gabapentin) 300 Mg Cap, 300 MG PO TID for 30 Days, MG 03/18/24 Doxycycline Hyclate (Doxycycline Hyclate) 100 Mg Cap, 100 MG PO BID, MG 03/18/24 Bupropion Hcl (Bupropion Hcl) 75 Mg Tab, 150 MG PO BID for 30 Days 03/18/24 Varenicline Tartrate (Varenicline Tartrate Cont) 1 Mg Tab, 1 MG PO BID, TAB 03/18/24 Atorvastatin Calcium (Lipitor) 40 Mg Tab, 1 TAB PO QPM, #90 TAB 1 Refill 03/18/24 Cholecalciferol (VITAMIN D3) 2,000 Unit Tab, 1 TAB PO DAILY, #30 TAB 5 Refills 03/18/24 Meloxicam (Meloxicam) 15 Mg Tab, 1 TAB PO DAILY, #30 TAB 2 Refills 03/18/24 Furosemide (Furosemide) 40 Mg Tab, 40 MG PO DAILY for 30 Days 03/18/24 Losartan Potassium (Losartan Potassium) 25 Mg Tab, 1 TAB PO DAILY, #90 TAB 1 Refill 03/18/24 Nicotine (Nicotine Transdermal Syst) 14 Mg/24 Hr Dis, 14 MG TD DAILY, DIS 02/19/20 Fluticasone Propionate (Nasal) (Allergy Nasal [place] 24 Ho) 50 Mcg/Act Spr, 1 SPRAY NA DAILYP, SPRAY 02/19/20 Naproxen (NAPROSYN TABLET) 500 Mg Tb, 1 TAB PO BID, #60 TAB 1 Refill 06/19/17 Baclofen (Baclofen) 10 Mg Tab, 20 MG PO Q8HR for 30 Days, MG 06/19/17 Trazodone Hcl (Trazodone Hcl) 100 Mg Tab, 200 QHSP, 0 Refills 10/08/11 Topiramate (Topamax) 100 Mg Tab, 300 BID, 0 Refills 10/08/11 Divalproex Sodium (Depakote Er) 500 Mg Tab, 1500 BID, 0 Refills 10/08/11 Information Source: Patient Mode of Arrival: Ambulatory Severity: Moderate Timing: Days Duration: Since onset Prehospital treatment: None Past Medical History PAST MEDICAL HISTORY: Arthritis, CHF, CKF, COPD, HTN, Seizures Surgical History: Denies all surgeries Family History Family History: Reviewed,noncontributory to illness Social History Smoker: Cigarettes Alcohol: Occasionally Drugs: Denies Drug Use Lives In: Home Musculoskeletal: reports: back pain All Other Systems: Reviewed and Negative (negative unless otherwise stated above or in HPI) Physical Exam General Appearance: No Apparent Distress, Obese HEENT: Normal ENT Inspection, Pharynx Normal, TMs Normal Neck: Full Range of Motion, Non-Tender, Normal, Normal Inspection Respiratory: Chest Non-Tender, Lungs Clear, No Accessory Muscle Use, No Respiratory Distress, Normal Breath Sounds Cardiovascular: No Edema, No JVD, No Murmur, No Gallop, Normal Peripheral Pulses, Regular Rate/Rhythm Breast Exam: Deferred Gastrointestinal: No Organomegaly, Non Tender, No Pulsatile Mass, Normal Bowel Sounds, Soft Genitalia: Deferred Pelvic: Deferred Rectal: Deferred Extremities: Leg edema (+1 pitting edema to bilateral lower extremities), No calf tenderness, Normal capillary refill, Non-tender, No pedal edema, Swelling (+1 pitting edema to bilateral lower extremities) Musculoskeletal : Location: Bilateral Extremity Location: Back (lower back ) Apperance: Normal, Tenderness (range of motion intact ) Neurologic: Alert, trial lawyer II-XII nml as Tested, No Motor Deficits, Normal Affect, Normal Mood, No Sensory Deficits Cerebellar Function: Normal Reflexes: Normal Skin: Dry, Normal Color, Warm Lymphatic: No Adenopathy Was a procedure done? Was a procedure done?: No Differential Dx Considerations may include: chronic back pain, DDD, post-op complication, musculoskeletal pain, sciatica X-Ray, Labs, Meds, VS Vital Signs Date Time Temp Pulse Resp B/P (MAP) Pulse Ox O2 Delivery O2 Flow Rate FiO2 05/27/24 10:39 98.2 62 62 160/72 (101) 96 98.2 05/27/24 10:39 62 18 96 Nasal Cannula* 2 28 05/27/24 10:20 20 88 Room Air* 0 21 05/27/24 10:12 98.1 80 20 167/101 (123) 88 X-Ray, Labs, Meds, VS Comment This 63-year-old male he was on home oxygen intermittently presents requesting morphine. He states he he had a fusion of his lumbar spine in mid April. He saw his surgeon yesterday but is here requesting pain medication. He was noted to be hypoxic. However, the patient was refusing any intervention, workup or management of his profound hypoxia. Patient became upset and signed out against medical advice. Time of 1ST Reevaluation: 11:00 Reevaluation 1ST: Unchanged Patient Education/Counseling: Diagnosis, Treatment Family Education/Counseling: No Family Present Departure 1 Departure Time of Disposition: 10:56 Impression: Primary Impression: Lumbar strain Additional Impressions: Musculoskeletal pain Hypoxia Disposition: 07 LEFT AGAINST MEDICAL ADVICE Condition: Fair Discharged With: Self Critical Care Note Critical Care Time?: No Stability Stability form required: No Heart Score Heart Score: Heart Score Response (Comments) Value History N/A 0 EKG N/A 0 Age N/A 0 Risk Factors N/A 0 Troponin N/A 0 Total 0 I personally scribed for DINA NAVARRETE MD ([email or web address]) on 05/27/24 at 10:49. Electronically submitted by Joseph Oakley [email or web address]). DINA NAVARRETE MD May 27, 2024 10:49
== END 2024-05-27 10:58 | disposition left against medical advice (07) ==
LOC: ER 09:58
DX: S39.012A Strain of muscle, fascia and tendon of lower back, initial encounter (principal); M79.18 Myalgia, other site; R09.02 Hypoxemia; M19.90 Unspecified osteoarthritis, unspecified site; I11.0 Hypertensive heart disease with heart failure; I50.9 Heart failure, unspecified; J44.9 Chronic obstructive pulmonary disease, unspecified; F17.210 Nicotine dependence, cigarettes, uncomplicated; X58.XXXA Exposure to other specified factors, initial encounter; Y93.89 Activity, other specified; Y92.89 Other specified places as the place of occurrence of the external cause; Y99.8 Other external cause status

== ENCOUNTER 2024-05-29 12:48 | Emergency (ER) | payer MEDICAID ==
[~2024-05-29] VITALS: Ht 177.8 cm; Wt 127.0 kg
[2024-05-29 12:58] VITALS: TEMP 97.2
[2024-05-29 13:03] VITALS: BP 154/82; PULSE 86; RESP 18; O2SAT 92
--- NOTE | 2024-05-29 14:49 | ED.PDOC ---
Elsie. trauma (HPI) HPI Comments 63 y/o M presents for medication refill Patient seen 2 days ago for back pain. Patient endorses on recent [id number] spinal fusion surgery in April 27 and 2023 and having sudden and unprovoked onset of pain 3 days ago. Patient comments further on being fine prior amidst most recent f/u with his physician following surgery, yesterday, in addition to running out of his "medication pills" that he is unable to recollect at time of assessment. Chief Complaint: Back Pain Time Seen by MD: 14:21 Primary Care Provider: TRICIA Reviewed notes: Nurses Notes, Medications, Allergies Allergies: Coded Allergies: NO KNOWN ALLERGIES (Unverified , 06/13/19) Home Meds Active Scripts Ibuprofen Micronized (Ibuprofen) 600 Mg Tab, 600 MG PO Q8HR PRN for 30 Days, #90 TAB 0 Refills Prov:TAYLOR MO [facility] 05/23/24 Hydrocodone-Acetaminophen (Hydrocodone Bitartrate/AC 10-325 mg) 1 Tab Tab, 1 TAB PO Q6HP PRN for 4 Days, #16 TAB 0 Refills Prov:TAYLOR MO [facility] 05/23/24 Methylprednisolone (Medrol Dosepak) 4 Mg Khanh, 4 MG PO UD, #21 TAB UAD Prov:NATHAN GEE RESIDENT 03/18/24 Azithromycin (Zithromax) 500 Mg Tab, 500 MG PO DAILY for 1 Day, #1 TAB Prov:NATHAN GEE RESIDENT 03/18/24 Azithromycin (Zithromax) 250 Mg Tab, 250 MG PO DAILY for 4 Days, #4 TAB Prov:NATHAN GEE RESIDENT 03/18/24 Hydrocodone-Acetaminophen (Hydrocodone Bitartrate/AC 5-325 mg) 1 Tab Tab, 1 TAB PO Q8HP PRN for 5 Days, #15 TAB Prov:CHIKA IZQUIERDO MD 07/08/23 Acetaminophen (Tylenol Extra Strength Fo) 500 Mg Tab, 650 MG PO TID, #30 TAB Prov:KADE MOISE 05/08/23 Cephalexin ( Keflex 500) 500 Mg Cap, 1 CAP PO QID for 7 Days, #28 CAP 0 Refills Prov:SUSANNA RIVERA [employer] 04/28/22 Lidocaine (LIDODERM 5% TOPICAL PATCH) 1 Patch Ph, 1 PATCH TOP DAILY PRN, #30 PATCH 1 Refill Prov:SUSANNA RIVERA [employer] 04/28/22 Ibuprofen Micronized (Ibuprofen) 600 Mg Tab, 600 MG PO Q8HPRN PRN, #30 TAB 0 Refills Prov:SUSANNA RIVERA [facility] 04/28/22 Reported Medications Prednisone (Prednisone) 20 Mg Tab, 50 MG PO BID, MG 03/18/24 Diphenhydramine Hcl (Diphenhydramine Hcl) 25 Mg Cap, 25 MG PO DAILYP PRN for SEIZURES, MG 03/18/24 Gabapentin (Gabapentin) 300 Mg Cap, 300 MG PO TID for 30 Days, MG 03/18/24 Doxycycline Hyclate (Doxycycline Hyclate) 100 Mg Cap, 100 MG PO BID, MG 03/18/24 Bupropion Hcl (Bupropion Hcl) 75 Mg Tab, 150 MG PO BID for 30 Days 03/18/24 Varenicline Tartrate (Varenicline Tartrate Cont) 1 Mg Tab, 1 MG PO BID, TAB 03/18/24 Atorvastatin Calcium (Lipitor) 40 Mg Tab, 1 TAB PO QPM, #90 TAB 1 Refill 03/18/24 Cholecalciferol (VITAMIN D3) 2,000 Unit Tab, 1 TAB PO DAILY, #30 TAB 5 Refills 03/18/24 Meloxicam (Meloxicam) 15 Mg Tab, 1 TAB PO DAILY, #30 TAB 2 Refills 03/18/24 Furosemide (Furosemide) 40 Mg Tab, 40 MG PO DAILY for 30 Days 03/18/24 Losartan Potassium (Losartan Potassium) 25 Mg Tab, 1 TAB PO DAILY, #90 TAB 1 Refill 03/18/24 Nicotine (Nicotine Transdermal Syst) 14 Mg/24 Hr Dis, 14 MG TD DAILY, DIS 02/19/20 Fluticasone Propionate (Nasal) (Allergy Nasal [place] 24 Ho) 50 Mcg/Act Spr, 1 SPRAY NA DAILYP, SPRAY 02/19/20 Naproxen (NAPROSYN TABLET) 500 Mg Tb, 1 TAB PO BID, #60 TAB 1 Refill 06/19/17 Baclofen (Baclofen) 10 Mg Tab, 20 MG PO Q8HR for 30 Days, MG 06/19/17 Trazodone Hcl (Trazodone Hcl) 100 Mg Tab, 200 QHSP, 0 Refills 10/08/11 Topiramate (Topamax) 100 Mg Tab, 300 BID, 0 Refills 10/08/11 Divalproex Sodium (Depakote Er) 500 Mg Tab, 1500 BID, 0 Refills 10/08/11 Mode of Arrival: EMS Past Medical History PAST MEDICAL HISTORY: Arthritis, CHF, CKF, COPD, HTN, Seizures Surgical History: Denies all surgeries Family History Family History: Reviewed,noncontributory to illness Social History Smoker: Cigarettes Alcohol: Occasionally Drugs: Denies Drug Use Lives In: Home All Other Systems: Reviewed and Negative (Per HPI) Physical Exam General Appearance: No Apparent Distress, Normal HEENT: Normal ENT Inspection, Pharynx Normal, TMs Normal Neck: Full Range of Motion, Non-Tender, Normal, Normal Inspection Respiratory: Chest Non-Tender, Lungs Clear, No Accessory Muscle Use, No Respiratory Distress, Normal Breath Sounds Cardiovascular: No Edema, No JVD, No Murmur, No Gallop, Normal Peripheral Pulses, Regular Rate/Rhythm Breast Exam: Deferred Gastrointestinal: No Organomegaly, Non Tender, No Pulsatile Mass, Normal Bowel Sounds, Soft Genitalia: Deferred Pelvic: Deferred Rectal: Deferred Extremities: No calf tenderness, Normal capillary refill, Normal inspection, Normal range of motion, Non-tender, No pedal edema Musculoskeletal : Apperance: Normal Neurologic: Alert, pick up II-XII nml as Tested, No Motor Deficits, Normal Affect, Normal Mood, No Sensory Deficits Cerebellar Function: Normal Reflexes: Normal Skin: Dry, Normal Color, Warm Lymphatic: No Adenopathy Was a procedure done? Was a procedure done?: No Images 1 - sugical wound appears well. not infection. no erythema. no ttp. Differential Diagnosis Multiple Trauma: Other (chx back pain) X-Ray, Labs, Meds, VS Vital Signs Date Time Temp Pulse Resp B/P (MAP) Pulse Ox O2 Delivery O2 Flow Rate FiO2 05/29/24 13:03 97.2 86 18 154/82 (106) 92 05/29/24 12:58 86 18 92 Room Air 05/29/24 12:58 97.2 86 18 154/82 (106) 92 97.2 Current Medications Medications (Trade) Dose Ordered Sig/Kerrie Route Start Time Stop Time Status Last Admin Ketorolac Tromethamine (Toradol Injection) 30 mg ONCE ONCE IM 05/29/24 15:00 05/29/24 15:37 DC 05/29/24 15:42 Acetaminophen/ Hydrocodone Bitart ([place] 10/325MG Tab) 1 tab ONCE ONCE PO 05/29/24 15:00 05/29/24 15:37 DC 05/29/24 15:42 X-Ray, Labs, Meds, VS Comment He states he he had a fusion of his lumbar spine in mid April. However, the patient was refusing any intervention, workup or management Time of 1ST Reevaluation: 14:48 Reevaluation 1ST: Improved Patient Education/Counseling: Diagnosis, Treatment Family Education/Counseling: Diagnosis, Treatment Departure 1 Departure Time of Disposition: 14:48 Impression: Primary Impression: Chronic back pain Qualified Codes: M54.50 - Low back pain, unspecified; G89.29 - Other chronic pain Disposition: 01 HOME / SELF CARE / HOMELESS Condition: Fair Critical Care Note Critical Care Time?: No Stability Stability form required: No Heart Score Heart Score: Heart Score Response (Comments) Value History N/A 0 EKG N/A 0 Age N/A 0 Risk Factors N/A 0 Troponin N/A 0 Total 0 AALIYAH KING NP May 29, 2024 14:49
[2024-05-29] MEDS: KETOROLAC TROMETH 30 MG/ML 1ML VIAL IM ONE (15:42)
[2024-05-29] MEDS: HYDROcodone-ACET 10/325MG TAB PO ONE (15:42)
== END 2024-05-29 15:49 | disposition home or self-care (01) ==
LOC: ER 12:48 → EDBD 12:48 → ER 15:49
DX: G89.29 Other chronic pain (principal); M54.9 Dorsalgia, unspecified; I13.0 Hypertensive heart and chronic kidney disease with heart failure and stage 1 through stage 4 chronic kidney disease, or unspecified chronic kidney disease; E11.22 Type 2 diabetes mellitus with diabetic chronic kidney disease; N18.9 Chronic kidney disease, unspecified; I50.9 Heart failure, unspecified; F17.210 Nicotine dependence, cigarettes, uncomplicated; J44.9 Chronic obstructive pulmonary disease, unspecified; Z76.0 Encounter for issue of repeat prescription; Z79.1 Long term (current) use of non-steroidal anti-inflammatories (NSAID); Z79.52 Long term (current) use of systemic steroids; Z79.899 Other long term (current) drug therapy
CPT/HCPCS: 96372; 99283; J1885

== ENCOUNTER 2024-06-05 11:45 | Emergency (ER) | payer MEDICAID ==
[~2024-06-05] VITALS: Ht 177.8 cm; Wt 123.3 kg
[2024-06-05 12:01] VITALS: BP 157/91; PULSE 95; RESP 22; O2SAT 92
== END 2024-06-05 15:12 | disposition left against medical advice (07) ==
LOC: ER 11:45
DX: Z48.00 Encounter for change or removal of nonsurgical wound dressing (principal); Z53.21 Procedure and treatment not carried out due to patient leaving prior to being seen by health care provider

== ENCOUNTER 2024-06-29 07:46 | Emergency (ER) | payer MEDICAID ==
[~2024-06-29] VITALS: Ht 177.8 cm; Wt 124.9 kg
[2024-06-29 08:11] VITALS: BP 114/78; PULSE 72; RESP 18; TEMP 98.5; O2SAT 94
--- NOTE | 2024-06-29 08:45 | ED.PDOC ---
Musculoskeletal HPI Comments A 63 YEAR OLD MALE PRESENTS TO THE ED WITH CHIEF COMPLAINT OF LEFT SIDED BACK AND HIP PAIN. PATIENT REPORTS THAT HE HAS BEEN EXPERIENCING LEFT LOWER BACK PAIN AND LEFT HIP PAIN SINCE HAVING A SURGERY FOR HIS BACK ON 04/29/24. PATIENT RELAYS THAT HE HAS BEEN TAKING MORPHINE FOR PAIN RELIEF, BUT IT HAS ONLY PROVIDED SLIGHT RELIEF. PATIENT STATES HE HAD SEEN HIS SURGEON LAST WEDNESDAY FOR HIS COMPLAINT, BUT WAS ADVISED TO BE EVALUATED FOR HIS LEFT HIP IT COULD BE UNRELATED TO HIS SURGERY. PATIENT DENIES ANY NUMBNESS, WEAKNESS, CHEST PAIN, FALL, INJURY, HEADACHE, OR SOB. Chief Complaint: Lower Extremity Time Seen by MD: 08:40 Primary Care Provider: TRICIA Reviewed Notes: Nurses Notes, Medications, Allergies Allergies: Coded Allergies: NO KNOWN ALLERGIES (Unverified , 06/13/19) Home Meds Active Scripts Prednisone (Prednisone) 20 Mg Tab, 60 MG PO DAILY, #21 TAB Prov:KADE MOISE 06/29/24 Gabapentin (Gabapentin) 600 Mg Tab, 1 TAB PO BID, #30 TAB Prov:KADE MOISE 06/29/24 Ibuprofen Micronized (Ibuprofen) 600 Mg Tab, 600 MG PO Q8HR PRN for 30 Days, #90 TAB 0 Refills Prov:TAYLOR MO [employer] 05/23/24 Hydrocodone-Acetaminophen (Hydrocodone Bitartrate/AC 10-325 mg) 1 Tab Tab, 1 TAB PO Q6HP PRN for 4 Days, #16 TAB 0 Refills Prov:TAYLOR MO [employer] 05/23/24 Methylprednisolone (Medrol Dosepak) 4 Mg Khanh, 4 MG PO UD, #21 TAB UAD Prov:NATHAN GEE RESIDENT 03/18/24 Azithromycin (Zithromax) 500 Mg Tab, 500 MG PO DAILY for 1 Day, #1 TAB Prov:NATHAN GEE RESIDENT 03/18/24 Azithromycin (Zithromax) 250 Mg Tab, 250 MG PO DAILY for 4 Days, #4 TAB Prov:NATHAN GEE RESIDENT 03/18/24 Hydrocodone-Acetaminophen (Hydrocodone Bitartrate/AC 5-325 mg) 1 Tab Tab, 1 TAB PO Q8HP PRN for 5 Days, #15 TAB Prov:CHIKA IZQUIERDO MD 07/08/23 Acetaminophen (Tylenol Extra Strength Fo) 500 Mg Tab, 650 MG PO TID, #30 TAB Prov:SUMAKADE ARAUJO 05/08/23 Cephalexin ( Keflex 500) 500 Mg Cap, 1 CAP PO QID for 7 Days, #28 CAP 0 Refills Prov:SUSANNA RIVERA [facility] 04/28/22 Lidocaine (LIDODERM 5% TOPICAL PATCH) 1 Patch Ph, 1 PATCH TOP DAILY PRN, #30 PATCH 1 Refill Prov:SUSANNA RIVERA [facility] 04/28/22 Ibuprofen Micronized (Ibuprofen) 600 Mg Tab, 600 MG PO Q8HPRN PRN, #30 TAB 0 Refills Prov:SUSANNA RIVERA [facility] 04/28/22 Reported Medications Prednisone (Prednisone) 20 Mg Tab, 50 MG PO BID, MG 03/18/24 Diphenhydramine Hcl (Diphenhydramine Hcl) 25 Mg Cap, 25 MG PO DAILYP PRN for SEIZURES, MG 03/18/24 Gabapentin (Gabapentin) 300 Mg Cap, 300 MG PO TID for 30 Days, MG 03/18/24 Doxycycline Hyclate (Doxycycline Hyclate) 100 Mg Cap, 100 MG PO BID, MG 03/18/24 Bupropion Hcl (Bupropion Hcl) 75 Mg Tab, 150 MG PO BID for 30 Days 03/18/24 Varenicline Tartrate (Varenicline Tartrate Cont) 1 Mg Tab, 1 MG PO BID, TAB 03/18/24 Atorvastatin Calcium (Lipitor) 40 Mg Tab, 1 TAB PO QPM, #90 TAB 1 Refill 03/18/24 Cholecalciferol (VITAMIN D3) 2,000 Unit Tab, 1 TAB PO DAILY, #30 TAB 5 Refills 03/18/24 Meloxicam (Meloxicam) 15 Mg Tab, 1 TAB PO DAILY, #30 TAB 2 Refills 03/18/24 Furosemide (Furosemide) 40 Mg Tab, 40 MG PO DAILY for 30 Days 03/18/24 Losartan Potassium (Losartan Potassium) 25 Mg Tab, 1 TAB PO DAILY, #90 TAB 1 Refill 03/18/24 Nicotine (Nicotine Transdermal Syst) 14 Mg/24 Hr Dis, 14 MG TD DAILY, DIS 02/19/20 Fluticasone Propionate (Nasal) (Allergy Nasal [place] 24 Ho) 50 Mcg/Act Spr, 1 SPRAY NA DAILYP, SPRAY 02/19/20 Naproxen (NAPROSYN TABLET) 500 Mg Tb, 1 TAB PO BID, #60 TAB 1 Refill 06/19/17 Baclofen (Baclofen) 10 Mg Tab, 20 MG PO Q8HR for 30 Days, MG 06/19/17 Trazodone Hcl (Trazodone Hcl) 100 Mg Tab, 200 QHSP, 0 Refills 10/08/11 Topiramate (Topamax) 100 Mg Tab, 300 BID, 0 Refills 10/08/11 Divalproex Sodium (Depakote Er) 500 Mg Tab, 1500 BID, 0 Refills 10/08/11 Information Source: Patient Mode of Arrival: Ambulatory Location: Left Extremity Location: Back, Hip Timing: Months Prehospital treatment: None Severity: Moderate Able to Move Extremity: Yes Bear Weight: Fully Pain: Moderate Mechanism: Other (S/P BACK SURGERY) Circumstances: Spontaneous Onset of Symptoms: Spontaneous Symptoms: Pain DVT Risk Factors: NONE Last Tetanus: Unknown Associated signs and symptoms: Back pain, Hip pain Past Medical History PAST MEDICAL HISTORY: Arthritis, CHF, CKF, COPD, HTN, Seizures Past Medical History (Other): CHRONIC LOW BACK PAIN Surgical History (Other): BACK SURGERY Family History Family History: Reviewed,noncontributory to illness Social History Smoker: Cigarettes Alcohol: Occasionally Drugs: Denies Drug Use Lives In: Home Constitutional: denies: chills, diaphoresis, fatigue, fever, malaise, sweats, weakness, others EENTM: denies: blurred vision, double vision, ear bleeding, ear discharge, ear drainage, ear pain, ear ringing, eye pain, eye redness, hearing loss, mouth pain, mouth swelling, nasal discharge, nose bleeding, nose congestion, nose pain, photophobia, tearing, throat pain, throat swelling, voice changes, others Respiratory: denies: cough, hemoptysis, orthopnea, SOB at rest, shortness of breath, SOB with excertion, stridor, wheezing, others Cardiovascular: denies: chest pain, dizzy spells, diaphoresis, Dyspnea on exertion, edema, irregular heart beat, left arm pain, lightheadedness, pa lpitations, PND, syncope, others Gastrointestinal: denies: abdomen distended, abdominal pain, blood streaked bowels, constipated, diarrhea, dysphagia, difficulty swallowing, hematemesis, melena, nausea, poor appetite, poor fluid intake, rectal bleeding, rectal pain, vomiting, others Genitourinary: denies: burning, dysuria, flank pain, frequency, hematuria, incontinence, penile discharge, penile sore, pain, testicle pain, testicle swelling, urgency, others Neurological: denies: dizziness, fainting, headache, left sided numbness, left sided weakness, numbness, paresthesia, pre-existing deficit, right sided numbness, right sided weakness, seizure, speech problems, tingling, tremors, weakness, others Musculoskeletal: reports: back pain, muscle pain, others (LEFT HIP PAIN); denies: gout, joint pain, joint swelling, muscle stiffness, neck pain Integumetry: denies: bruises, change in color, change in hair/nails, dryness, laceration, lesions, lumps, rash, wounds, others Allergic/Immunocompromised: denies: Difficulty Healing, Frequent Infections, Hives, Itching, others Hematologic/Lymphatic: denies: anemia, blood clots, easy bleeding, easy bruising, swollen glands, others Endocrine: denies: excessive hunger, excessive sweating, excessive thirst, excessive urination, flushing, intolerance to cold, intolerance to heat, unexplained weight gain, unexplained weight loss, others Psychiatric: denies: anxiety, bipolar disorder, depression, hopeless, panic disorder, schizophrenia, sleepless, suicidal, others All Other Systems: Reviewed and Negative Physical Exam General Appearance: No Apparent Distress, Obese HEENT: Normal ENT Inspection, PERRL/EOMI Neck: Full Range of Motion, Non-Tender, Normal, Normal Inspection Respiratory: Chest Non-Tender, Lungs Clear, No Accessory Muscle Use, No Respiratory Distress, Normal Breath Sounds Cardiovascular: No Edema, No JVD, No Murmur, No Gallop, Normal Peripheral Pulses, Regular Rate/Rhythm Breast Exam: Deferred Gastrointestinal: No Organomegaly, Non Tender, No Pulsatile Mass, Normal Bowel Sounds, Soft Genitalia: Deferred Pelvic: Deferred Rectal: Deferred Extremities: No calf tenderness, Normal capillary refill, Normal inspection, Normal range of motion, Non-tender, No pedal edema Musculoskeletal : Location: Bilateral Extremity Location: Back Apperance: Tenderness: Moderate (NO BONY TENDERNESS, SWELLING AND DEFORMITY. ) Neurologic: Alert, gum worker II-XII nml as Tested, No Motor Deficits, Normal Affect, Normal Mood, No Sensory Deficits Cerebellar Function: Normal Reflexes: Normal Skin: Dry, Normal Color, Warm Peripheral Pulses: 2+ carotid (R), 2+ carotid (L) Lymphatic: No Adenopathy Was a procedure done? Was a procedure done?: No Differential Diagnosis EXT Differential Diagnosis: Sprain, DJD, Contusion, Bursitis X-Ray, Labs, Meds, VS Vital Signs Date Time Temp Pulse Resp B/P (MAP) Pulse Ox O2 Delivery O2 Flow Rate FiO2 06/29/24 08:11 98.5 72 18 114/78 (90) 94 98.5 06/29/24 08:11 72 18 94 Room Air 06/29/24 07:56 98.5 72 18 114/78 (90) 94 PATIENT: NATHALIE SIERRAACCT: [id number]: [id number] : 1960 LOC: ER ROOM / BED: / AGE / SEX: 63 / M ADM STATUS: REG ER SERVICE 1 ORDERING PHYSICIAN: KADE MOISE PROCEDURE(s): LUMB2 - LUMBAR SPINE 3 VIEW REASON: PAIN POST SURGERY X 2 MONTHS AGO ORDER NUMBER(s): [id number], ACCESSION NUMBER(s): [id number] INDICATION: PAIN POST SURGERY X 2 MONTHS AGO COMPARISON: LUMBAR SPINE LTD on DOS: 04/28/22, LUMB2 on DOS: 04/28/22, LHAN on DOS: 09/09/21 TECHNIQUE: 3 views of the lumbar spine were obtained. FINDINGS: Postsurgical changes are L4-S1. Mild retrolisthesis of L3 on L4. Mild retrolisthesis of L2 on L3. Moderate multilevel degenerative disc disease of the lumbosacral spine. No acute fracture, vertebral compression deformity or aggressive osseous lesions. The paravertebral soft tissues are grossly unremarkable. IMPRESSION: No acute fracture. ATED BY: YVON RIVERA MD DICTATED DATE/TIME: 06/29/24918 SIGNED BY: YVON RIVERA MD SIGNED DATE/TIME: 06/29/24918 CC: X-Ray, Labs, Meds, VS Comment EXTERNAL MEDICAL RECORDS REVIEWED: 06/05/24 FOR WOUND CHECK INDEPENDENT HISTORIANS: [NONE] SOCIAL DETERMINANTS OF HEALTH: [NONE] LABS ORDERED: NONE REVIEWED AND INTERPRETED RESULTS: L-SPINE XR AND LEFT HIP XR: INTERPRETED BY ME. NO ACUTE FINDINGS. NO FRACTURES OR DISLOCATION. DEGENERATIVE CHANGES NOTED TO HIP. PENDING RADIOLOGIST REPORT. IMAGING ORDERED: L-SPINE XR AND LEFT HIP XR TREATMENTS ORDERED: PT DECLINED PAIN MEDICATION IN ER. PROCEDURES PERFORMED: NONE CRITICAL CARE TIME: NONE I HAVE DISCUSSED THE PATIENT WITH THE ATTENDING PHYSICIAN DR. ESPITIA AND HE AGREES WITH THE PATIENT'S PLAN OF CARE AND DISPOSITION. BASED ON HISTORY OF PRESENT ILLNESS, AND PHYSICAL EXAM, PATIENT WILL BE DISCHARGED HOME. DISCUSSED PLAN FOR DISCHARGE HOME WITH RX. MEDICATION WARNINGS GIVEN. SHARED DECISION MAKING: DISCUSSED WITH PATIENT THAT THEIR WORKUP WAS NORMAL. PATIENT INSTRUCTED TO FOLLOW UP WITH PRIMARY CARE PROVIDER IN 1-2 DAYS FOR RE- EVALUATION OF SYMPTOMS. PATIENT VERBALIZES UNDERSTANDING TO RETURN TO ED FOR NEW OR WORSENING SYMPTOMS OR IF FOLLOW UP WITH PCP CANNOT BE OBTAINED. PATIENT FEELS COMFORTABLE GOING HOME AT THIS TIME. ALL QUESTIONS ADDRESSED AT TIME OF DISCHARGE. Time of 1ST Reevaluation: 09:34 Reevaluation 1ST: Unchanged Patient Education/Counseling: Diagnosis, Treatment, Need For Follow Up Family Education/Counseling: Diagnosis, Treatment, No Family Present Medical Screening: No EMC Exist At This Time Departure 1 Departure Time of Disposition: 09:35 Impression: Primary Impression: Acute exacerbation of chronic low back pain Additional Impression: DDD (degenerative disc disease), lumbar Qualified Codes: M51.362 - Other intervertebral disc degeneration, lumbar region with discogenic back pain and lower extremity pain Disposition: 01 HOME / SELF CARE / HOMELESS Condition: Stable Additional Instructions: FOLLOW-UP WITH PCP IN 1 TO 2 DAYS. TAKE MEDICATIONS PRESCRIBED. RETURN TO ED FOR ANY NEW OR WORSENING SYMPTOMS. e-Prescriptions Prednisone (Prednisone) 20 Mg Tab 60 MG PO DAILY, #21 TAB Prov: KADE MOISE 06/29/24 Gabapentin (Gabapentin) 600 Mg Tab 1 TAB PO BID, #30 TAB Prov: KADE MOISE 06/29/24 Discharged With: Self Critical Care Note Critical Care Time?: No Stability Stability form required: No Heart Score Heart Score: Heart Score Response (Comments) Value History N/A 0 EKG N/A 0 Age N/A 0 Risk Factors N/A 0 Troponin N/A 0 Total 0 I personally scribed for KADE MOISE ([email or web address]) on 06/29/24 at 08:45. Electronically submitted by Ernie Hawley ([email or web address]). I personally scribed for KADE MOISE ([email or web address]) on 06/29/24 at 09:21. Electronically submitted by Ernie Hawley ([email or web address]). KADE MOISE Jun 29, 2024 08:45
--- NOTE | 2024-06-29 09:18 | DVH ---
CLINICAL INDICATION: LOW BACK PAIN TO LEFT HIP TECHNIQUE: 1 radiographic views of the pelvis and 2 views of the left hip were obtained. Comparison: L HAND COMPLETE XRAY on DOS: 09/09/21 FINDINGS/IMPRESSION: There is no evidence of acute fracture or dislocation. The visualized joint space is well maintained. The alignment is anatomical. There is no radiopaque foreign body.
--- NOTE | 2024-06-29 09:20 | DVH ---
INDICATION: PAIN POST SURGERY X 2 MONTHS AGO COMPARISON: LUMBAR SPINE LTD on DOS: 04/28/22, LUMB2 on DOS: 04/28/22, LHAN on DOS: 09/09/21 TECHNIQUE: 3 views of the lumbar spine were obtained. FINDINGS: Postsurgical changes are L4-S1. Mild retrolisthesis of L3 on L4. Mild retrolisthesis of L2 on L3. Moderate multilevel degenerative disc disease of the lumbosacral spine. No acute fracture, vertebral compression deformity or aggressive osseous lesions. The paravertebral soft tissues are grossly unremarkable. IMPRESSION: No acute fracture.
[2024-06-29] MEDS ORDERED: PRED20TA2 PO (09:32)
[2024-06-29] MEDS ORDERED: GABA-339 PO (09:32)
== END 2024-06-29 09:36 | disposition home or self-care (01) ==
LOC: ER 07:46
DX: M51.362 Other intervertebral disc degeneration, lumbar region with discogenic back pain and lower extremity pain (principal); J44.9 Chronic obstructive pulmonary disease, unspecified; I11.0 Hypertensive heart disease with heart failure; I50.9 Heart failure, unspecified; G89.29 Other chronic pain; F17.210 Nicotine dependence, cigarettes, uncomplicated; Z79.1 Long term (current) use of non-steroidal anti-inflammatories (NSAID); Z79.52 Long term (current) use of systemic steroids; Z79.899 Other long term (current) drug therapy
CPT/HCPCS: 72100; 73502

== ENCOUNTER 2024-07-09 10:40 | Inpatient (IN) | payer MEDICAID ==
[2024-07-09] VITALS (12 sets, daily range): BP systolic 123; BP diastolic 69–80; PULSE 73–98; RESP 16–32; TEMP 97.9–98; O2SAT 91–99
[~2024-07-09] VITALS: Ht 177.8 cm; Wt 122.2 kg
[~2024-07-09 10:40] MED LIST changes: +GABA-339 PO; +MORP15TA PO; +PRIM50TA5 PO; -TRAZ-228; +TRAZ-228 PO
[2024-07-09] MEDS: IPRATROPIUM BROM 0.5 MG/2.5ML INH SOL NEB ONE (11:28)
[2024-07-09] MEDS: ALBUTEROL SULF 2.5 MG/0.5ML(0.5%) NEB SOLN NEB ONE ×2 (11:28→12:22)
--- NOTE | 2024-07-09 11:37 | DVH ---
XY CHEST PORTABLE, HISTORY: sob COMPARISON: CHEST PORTABLE on DOS: 02/19/20 CHEST PORTABLE on DOS: 02/19/20 TECHNICAL DATA: 1 view of the chest was obtained. FINDINGS: Lines and tubes: None Cardiomediastinal silhouette: normal Pulmonary vasculature: prominent Lung expansion: normal Lung airspace: normal Lung interstitium: normal Pleura: normal Pneumothorax: no Bones: Unremarkable Other: no IMPRESSION: Pulmonary vascular congestion.
[2024-07-09 11:49] LABS: Basophils # (auto) 0 10 ^3/uL (0-0.2); Basophils % (auto) 0.4 % (0.0-2.0); Eosinophils # (auto) 0 10 ^3/uL (0-0.8); Eosinophils % (auto) 0.4 % (0.0-7.0); Hematocrit 48.5 % (41.0-53.0); Hemoglobin 15.7 g/dL (13.5-17.5); Lymphocytes % (auto) 13.7 % (10.0-50.0); Mean Corpuscular Hemoglobin 31.5 pg (28.0-32.0); Mean Corpuscular Hgb Conc. 32.5 g/dL (32.0-36.0); Mean Corpuscular Volume 97.1 fL (80.0-100.0); Monocytes # (auto) 0.8 10 ^3/uL (0-1.3); Monocytes % (auto) 11.2 % (0.0-12.0); Neutrophils # (auto) 5.3 10 ^3/uL (1.6-8.6); Neutrophils % (auto) 74.3 % (37.0-80.0); Nucleated Red Blood Cells % 0.1 %; Platelet Count (auto) 195 10^3/uL (140-450); Red Blood Cells 4.99 10^6/uL (4.5-5.90); Red Cell Distribution Width 15.9 % (11.8-14.3); White Blood Cell 7.1 10^3/uL (4.4-10.8)
--- NOTE | 2024-07-09 11:51 | ED.PDOC ---
SOB-HPI HPI Comments 63 y.o male presents to the ED via EMS for a chief complaint of SOB associated with a productive cough that started 2 weeks ago. EMS reports patient on scene was working to breath, saturating at 55% room air with delayed cap refill, and presented with cyanotic lips. Patient was placed on 10 liters of oxygen and given breathing treatments which increased SPO2 to 98-99% but when oxygen is removed, SPO2 drops instantly. EMS reported on their physical assessment left lower and upper lobe wheezing alongside right sided decreased lung sounds. EKG and the rest of the vital signs including BG were stable on scene and en route. Patient is a poor historian, unable to provide full medication history but does state he is on multiple medications in which he stopped taking s/p back surgery 2 months ago. Patient complains of back surgery and chronic 4 year pain to left shoulder radiating to his left arm. He denies chest pain, worsening left shoulder or arm pain, nausea, vomiting, or home oxygen use. Per [facility] medical records, patient has a medical history of COPD, CHF, CKF, arthritis, HTN, and seizures. Patient also reports tobacco use but quit 3 weeks ago. No substance or alcohol use reported. No allergies reported either. Chief Complaint: Shortness of Breath Time Seen by MD: 11:00 Primary Care Provider: UNKNOWN Reviewed notes: Nurses Notes, Card Placer Notes, Medications, Allergies Information Source: Patient, Emergency Med Personnel Mode of Arrival: EMS Severity: Moderate Timing: Weeks (2) Duration: Since onset Context: At Rest PE Risk Factors: None History of: COPD, CHF Prehospital treatment: 12 Lead EKG, Accucheck, Breathing Tx, Tile Layer, Oxygen Modifying Factors: Nothing Associated Signs and Symptoms: Cough If cough with SOB: Productive Past Medical History PAST MEDICAL HISTORY: Arthritis, CHF, CKF, COPD, HTN, Seizures Surgical History (Other): back x 2 months ago, right shoulder, brain Family History Family History: Reviewed,noncontributory to illness Social History Smoker: Cigarettes Alcohol: Occasionally Drugs: Denies Drug Use Lives In: Home Constitutional: denies: chills, diaphoresis, fatigue, fever, malaise, sweats, weakness, others EENTM: denies: blurred vision, double vision, ear bleeding, ear discharge, ear drainage, ear pain, ear ringing, eye pain, eye redness, hearing loss, mouth pain, mouth swelling, nasal discharge, nose bleeding, nose congestion, nose pain, photophobia, tearing, throat pain, throat swelling, voice changes, others Respiratory: reports: cough, SOB at rest, shortness of breath, SOB with excertion; denies: hemoptysis, orthopnea, stridor, wheezing, others Cardiovascular: denies: chest pain, dizzy spells, diaphoresis, Dyspnea on exertion, edema, irregular heart beat, left arm pain, lightheadedness, palpitations, PND, syncope, others Gastrointestinal: denies: abdomen distended, abdominal pain, blood streaked bowels, constipated, diarrhea, dysphagia, difficulty swallowing, hematemesis, melena, nausea, poor appetite, poor fluid intake, rectal bleeding, rectal pain, vomiting, others Genitourinary: denies: burning, dysuria, flank pain, frequency, hematuria, incontinence, penile discharge, penile sore, pain, testicle pain, testicle swelling, urgency, others Neurological: denies: dizziness, fainting, headache, left sided numbness, left sided weakness, numbness, paresthesia, pre-existing deficit, right sided numbness, right sided weakness, seizure, speech problems, tingling, tremors, weakness, others Musculoskeletal: denies: back pain, gout, joint pain, joint swelling, muscle pain, muscle stiffness, neck pain, others Integumetry: denies: bruises, change in color, change in hair/nails, dryness, laceration, lesions, lumps, rash, wounds, others Allergic/Immunocompromised: denies: Difficulty Healing, Frequent Infections, Hives, Itching, others Hematologic/Lymphatic: denies: anemia, blood clots, easy bleeding, easy bruising, swollen glands, others Endocrine: denies: excessive hunger, excessive sweating, excessive thirst, excessive urination, flushing, intolerance to cold, intolerance to heat, unexplained weight gain, unexplained weight loss, others Psychiatric: denies: anxiety, bipolar disorder, depression, hopeless, panic disorder, schizophrenia, sleepless, suicidal, others All Other Systems: Reviewed and Negative Physical Exam General Appearance: Mild Distress, Obese HEENT: PERRL/EOMI Neck: Full Range of Motion, Normal Inspection Respiratory: Accessory Muscle Use, Decreased Breath Sounds (R base), Respiratory Distress, Wheezing (on L) Cardiovascular: No JVD, Regular Rate/Rhythm Breast Exam: Deferred Gastrointestinal: Non Tender, Soft Genitalia: Deferred Pelvic: Deferred Rectal: Deferred Extremities: Leg edema, Normal range of motion, Non-tender, Pedal edema Neurologic: Alert (oriented x 4), Normal Affect, Normal Mood, Other (no gross focal deficit) Cerebellar Function: NOT DONE Reflexes: NOT DONE Skin: Dry, Normal Color, Warm Lymphatic: NOT DONE EKG EKG : Comments Sinus rhythm, rate 86, normal IL and QRS intervals, QTC prolonged at 482, be any normal axis, normal QRS, anteroseptal T inversion with other nonspecific T change Was a procedure done? Was a procedure done?: No Differential Dx Differential Diagnosis: Bronchitis, CHF, COPD, Hyperventilation, Myocardial infarction, Panic Attack, Pneumonia, Pulmonary Embolism, Respiratory Distress, URI X-Ray, Labs, Meds, VS Vital Signs Date Time Temp Pulse Resp B/P (MAP) Pulse Ox O2 Delivery O2 Flow Rate FiO2 07/09/24 12:46 97.9 81 22 123/80 94 50 97.9 07/09/24 12:20 123/80 07/09/24 11:45 98 Bi-Pap+ 30 30 07/09/24 11:44 98 Bi-Pap+ 30 30 07/09/24 11:35 81 123/80 96 Facial BiPAP Mask 50 07/09/24 11:35 81 123/80 Facial BiPAP Mask 50 07/09/24 11:30 97.9 80 27 123/80 (94) 95 97.9 07/09/24 11:28 24 99 Non-Rebreather 15 N/A 07/09/24 10:49 86 07/09/24 10:44 97.9 83 22 133/83 (100) 99 Lab Test 07/09/24 12:29 07/09/24 11:25 07/09/24 11:24 Range/Units Troponin I High Sensitivity Pending 75 *H </=54 ng/L White Blood Count 7.1 4.4-10.8 10^3/uL Red Blood Count 4.99 4.5-5.90 10^6/uL Hemoglobin 15.7 13.5-17.5 g/dL Hematocrit 48.5 41.0-53.0 % Mean Corpuscular Volume 97.1 80.0-100.0 fL Mean Corpuscular Hemoglobin 31.5 28.0-32.0 pg Mean Corpuscular Hemoglobin Concent 32.5 32.0-36.0 g/dL Red Cell Distribution Width 15.9 H 11.8-14.3 % Platelet Count 195 140-450 10^3/uL Mean Platelet Volume 7.5 6.9-10.8 fL Neutrophils (%) (Auto) 74.3 37.0-80.0 % Lymphocytes (%) (Auto) 13.7 10.0-50.0 % Monocytes (%) (Auto) 11.2 0.0-12.0 % Eosinophils (%) (Auto) 0.4 0.0-7.0 % Basophils (%) (Auto) 0.4 0.0-2.0 % Neutrophils # (Auto) 5.3 1.6-8.6 10 ^3/uL Lymphocytes # (Auto) 1.0 0.4-5.4 10 ^3/uL Monocytes # (Auto) 0.8 0-1.3 10 ^3/uL Eosinophils # (Auto) 0 0-0.8 10 ^3/uL Basophils # (Auto) 0 0-0.2 10 ^3/uL Nucleated Red Blood Cells 0.1 % Sodium Level 137 136-145 mmol/L Potassium Level 4.3 3.5-5.1 mmol/L Chloride Level 100 98-107 mmol/L Carbon Dioxide Level 29 20-31 mmol/L Anion Gap 8 5-15 Blood Urea Nitrogen 19 9-23 mg/dL Creatinine 1.14 0.700-1.30 mg/dL Glomerular Filtration Rate Calc 72 >90 mL/min BUN/Creatinine Ratio 16.7 10.0-20.0 Serum Glucose 114 H 74-106 mg/dL Lactic Acid Level 1.2 0.4-2.0 mmol/L Calcium Level 9.0 8.7-10.4 mg/dL B-Type Natriuretic Peptide 244.24 0-100 pg/mL Blood Gas Specimen Type Arterial Blood Gas Sample Site Right radial Blood Gas Patient Temperature 37.0 Arterial Blood Date Drawn [id number] Arterial Blood pH 7.240 *L 7.350-7.450 Arterial Blood Partial Pressure CO2 74.4 *H 35.0-48.0 mmHg Arterial Blood Partial Pressure O2 221.2 H 83.0-108.0 mmHg Arterial Blood HCO3 31.2 H 21.0-28.0 mmol/L Arterial Blood Oxygen Saturation 99.5 H 94.0-98.0 % Arterial Blood Base Excess 1.1 -2.0-3.0 mmol/L Arterial Blood Oxyhemoglobin 97.4 94.0-98.0 % Arterial Blood Carboxyhemoglobin 1.5 0.5-1.5 % Arterial Blood Methemoglobin 0.6 0.0-1.5 % Lb Test Yes Blood Gas Total Hemoglobin 16.30 13.5-17.5 g/dL Blood Gas Liter Flow 15.00 Blood Gas Modality Mask - nrb FiO2 % 100.0 Blood Gas Critical Value Read Back Yes Blood Gas Notified Whom rose mary Whiteside md Blood Gas Notified Time [id number] Blood Gas Notified By Adilene vega rrt Current Medications Medications (Trade) Dose Ordered Sig/Kerrie Route Start Time Stop Time Status Last Admin Albuterol (Ventolin Medneb) 5 mg ONCE ONCE NEB 07/09/24 11:15 07/09/24 11:16 DC 07/09/24 11:28 Ipratropium Marissa (Atrovent Medneb) 0.5 mg ONCE ONCE NEB 07/09/24 11:15 07/09/24 11:16 DC 07/09/24 11:28 Methylprednisolone Sodium Succinate (Solu Medrol) 125 mg ONCE ONCE IV 07/09/24 11:15 07/09/24 11:16 DC 07/09/24 12:00 Furosemide (Lasix Injection) 40 mg ONCE ONCE IV 07/09/24 12:00 07/09/24 12:01 DC 07/09/24 12:20 Ceftriaxone Sodium 50 ml @ 100 mls/hr ONCE ONCE IV 07/09/24 12:00 07/09/24 12:29 DC 07/09/24 12:23 Albuterol (Ventolin Medneb) 10 mg ONCE ONCE NEB 07/09/24 12:00 07/09/24 12:02 DC 07/09/24 12:[address] [address] Ph: [phone] DIAGNOSTIC IMAGING Diagnostic Imaging Report : [id number] Signed PATIENT: NATHALIE SIERRAACCT: [id number] UNIT: [id number] : 1960 LOC: ER ROOM / BED: / AGE / SEX: 63 / M ADM STATUS: REG ER SERVICE ORDERING PHYSICIAN: RADHA WHITESIDE MD PROCEDURE(s): CXRP - CHEST PORTABLE REASON: sob ORDER NUMBER(s): [id number], ACCESSION NUMBER(s): [id number] CHEST PORTABLE, HISTORY: sob COMPARISON: CHEST PORTABLE on DOS: 02/19/20 CHEST PORTABLE on DOS: 02/19/20 TECHNICAL DATA: 1 view of the chest was obtained. FINDINGS: Lines and tubes: None Cardiomediastinal silhouette: normal Pulmonary vasculature: prominent Lung expansion: normal Lung airspace: normal Lung interstitium: normal Pleura: normal Pneumothorax: no Bones: Unremarkable Other: no IMPRESSION: Pulmonary vascular congestion. ATED BY: ERICK TANG MD DICTATED DATE/TIME: 07/09/24 113 SIGNED BY: ERICK TANG MD SIGNED DATE/TIME: 07/09/24 1134 CC: X-Ray, Labs, Meds, VS Comment 63-year-old male with a history of hypertension, COPD, CHF, CKD, seizures and arthritis presenting with shortness of breath Vitals remarkable for respiratory rate of 27, oxygen saturation 70% on room air Exam remarkable for wheezing on the left and diminished breath sounds at the right base, respiratory distress and accessory muscle use, trace bilateral lower extremity edema Rhythm strip independently interpreted by me: Sinus rhythm rate 86, no ectopy. Chest x-ray IMPRESSION: Pulmonary vascular congestion. CBC unremarkable, metabolic panel unremarkable, lactate normal, BNP 244.44, troponin 75 Patient treated with the following in the ED: Albuterol 5 mg/Atrovent 0.5 mg nebulized, placed on BiPAP, continuous in-line albuterol 10 mg nebulized, Solu-Medrol 125 mg IV, Rocephin 1 g IV, Zithromax 500 mg IV, Lasix 40 mg IV, aspirin 325 mg p.o., nitro bid 1/2 in to chest wall On re-evaluation, patient was more comfortable on BiPAP. Plan will be to admit the patient for respiratory support, IV antibiotics, diuresis and pulmonology consultation. Time of 1ST Reevaluation: 11:41 Reevaluation 1ST: Unchanged Patient Education/Counseling: Diagnosis, Treatment, Prognosis Family Education/Counseling: No Family Present Departure 1 Departure Time of Disposition: 13:13 Impression: Primary Impression: Respiratory failure, acute Qualified Codes: J96.00 - Acute respiratory failure, unspecified whether with hypoxia or hypercapnia Additional Impressions: CHF exacerbation Qualified Codes: I50.9 - Heart failure, unspecified COPD exacerbation Pneumonia Qualified Codes: J18.9 - Pneumonia, unspecified organism Elevated troponin Disposition: ADMITTED INPATIENT Admit to: [facility] Condition: Guarded Critical Care Note Critical Care Time?: Yes (45 min-critical care time only) Critical care comment: Critical care time including multiple bedside re-evaluations, review of lab and imaging studies, and discussion of the case with the admitting provider. Patient is high risk for hemodynamic and/or respiratory decompensation. Stability Stability form required: No Heart Score Heart Score: Heart Score Response (Comments) Value History N/A 0 EKG N/A 0 Age N/A 0 Risk Factors N/A 0 Troponin N/A 0 Total 0 I personally scribed for RADHA WHITESIDE MD ([facility]) on 07/09/24 at 11:51. Electronically submitted by Ann-Marie Soto ([facility]). I personally scribed for RADHA WHITESIDE MD ([facility]) on 07/09/24 at 11:54. Electronically submitted by Ann-Marie Soto ([facility]). RADHA WHITESIDE MD Jul 09, 2024 11:51
[2024-07-09 11:59] LABS: Base Excess 1.1 mmol/L (-2.0-3.0)
[2024-07-09] MEDS: methylPREDNISolone SOD SUCC 125 MG/2 ML VL IV ONE (12:00)
[2024-07-09] MEDS: FUROSEMIDE 40 MG/4 ML VIAL IV ONE (12:20)
[2024-07-09] MEDS: cefTRIAXone 1GM/50ML D5W 50 ML IV ONE (12:23)
[2024-07-09 12:25] LABS: Chloride 100 mmol/L (98-107); Potassium 4.3 mmol/L (3.5-5.1); Sodium 137 mmol/L (136-145)
[2024-07-09 12:26] LABS: Anion Gap 8 (5-15); Carbon Dioxide 29 mmol/L (20-31)
[2024-07-09 12:31] LABS: BUN/Creatinine Ratio 16.7 (10.0-20.0); Blood Urea Nitrogen 19 mg/dL (9-23)
[2024-07-09 12:35] LABS: Glucose 114 mg/dL (74-106)
[2024-07-09] MEDS ORDERED: NITROGLYCERIN 0.4 MG SL TAB SL PRN (13:00)
[2024-07-09] MEDS: NITROGLYCERIN 2% OINT 1GM PKG TD ONE (13:15)
[2024-07-09 13:19] LABS: Base Excess 0.3 mmol/L (-2.0-3.0)
[2024-07-09] MEDS: ASPirin 325 MG TAB PO ONE (13:37)
[2024-07-09] MEDS: AZITHROMYCIN 500MG/ 250ML 250 ML IV ONE (13:37)
--- NOTE | 2024-07-09 13:50 | DVHHP2 ---
History of Present Illness Reason for Visit: Shortness of breaths History of Present Illness The patient was a 63-year-old male transport to the emergency room by EMS with reports of shortness of breath. Patient was had worsening shortness of breath with a past four days, with it exacerbated to the point where he called 911. Patient was found to be severely hypoxic at home. Patient was treated with bronchodilators, O2 supplementation, IV steroids with the patient having persistent dyspnea. ABG was performed which revealed hypercarbic and hypoxic respiratory failure for which the patient was placed on BiPAP. At the time of assessment, the patient was states that he was not getting enough support from the BiPAP and took it off. Patient is now on 6 L via simple mask. Patient reports a significant history of recent back surgery, history of craniectomy for his seizure disorder, hypertension, and CHF. Patient was states that he stopped smoking tobacco cigarettes three weeks ago, but states that he was smoked cigarettes for over 30 years. 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 Dyspnea, Edema, Lt Headedness, Other Gastrointestinal: No: Nausea, Vomiting, Abdominal Pain, Diarrhea, Constipation, Melena, Hematochezia, Other Genitourinary: No Dysuria, No Frequency, No Incontinence, No Hematuria, No Retention, No Other Musculoskeletal: No: other, neck pain, shoulder pain, arm pain, back pain, hand pain, leg pain, foot pain Skin: No: Rash, Lesions, Jaundice, Bruising, Other Neurological: No: Weakness, Numbness, Incoordination, Change in speech, Conf usion, Seizures, Other Allergies: Coded Allergies: NO KNOWN ALLERGIES (Unverified , 06/13/19) Medications Current Medications Medications Dose Ordered Sig/Kerrie Route Start Time Stop Time Status Last Admin Dose Admin Nitroglycerin 0.4 mg Q5MINP PRN SL 07/09/24 13:00 Morphine Sulfate 2 mg Q30M PRN IV 07/09/24 13:00 Furosemide 40 mg DAILY IV 07/10/24 10:00 Bupropion HCl 150 mg BID PO 07/09/24 22:00 Gabapentin 300 mg TID PO 07/09/24 14:00 Topiramate 300 mg BID PO 07/09/24 22:00 Future Hold Trazodone HCl 200 mg QHSP PO 07/09/24 22:00 Nicotine 1 patch DAILY TD 07/09/24 13:15 Exam Vital Signs Vital Signs Date Time Temp Pulse Resp B/P (MAP) Pulse Ox O2 Delivery O2 Flow Rate FiO2 07/09/24 13:18 79 07/09/24 12:46 97.9 22 123/80 94 50 97.9 07/09/24 11:45 Bi-Pap+ 07/09/24 11:28 15 General Appearance: Alert, Oriented X3, Cooperative, moderate distress HEENT: Atraumatic, PERRLA Respiratory: Clear to auscultation, Normal air movement Cardiovascular: Normal S1, Normal S2, Other (ST depression in anterior and lateral leads on 12 lead ECG) Abdominal: Normal bowel sounds Neuro: Normal gait, Normal speech Psych/Mental Status: Mental status NL, Mood NL Labs/Xrays Labs Test 07/09/24 13:00 07/09/24 12:29 07/09/24 11:25 Range/Units Blood Gas Specimen Type Arterial Blood Gas Sample Site Right brachial Blood Gas Patient Temperature 37.0 Arterial Blood Date Drawn [id number] Arterial Blood pH 7.246 *L 7.350-7.450 Arterial Blood Partial Pressure CO2 71.0 *H 35.0-48.0 mmHg Arterial Blood Partial Pressure O2 390.0 *H 83.0-108.0 mmHg Arterial Blood HCO3 30.2 H 21.0-28.0 mmol/L Arterial Blood Oxygen Saturation 99.9 H 94.0-98.0 % Arterial Blood Base Excess 0.3 -2.0-3.0 mmol/L Arterial Blood Oxyhemoglobin 97.9 94.0-98.0 % Arterial Blood Carboxyhemoglobin 1.3 0.5-1.5 % Arterial Blood Methemoglobin 0.7 0.0-1.5 % Lb Test N/a Blood Gas Total Hemoglobin 17.00 13.5-17.5 g/dL Blood Gas Liter Flow 15.00 Blood Gas Modality Mask - nrb FiO2 % 100.0 Blood Gas Critical Value Read Back Yes Blood Gas Notified Whom rose mary Whiteside md Blood Gas Notified Time [id number] Blood Gas Notified By Adilene vega rrt Troponin I High Sensitivity 74 *H </=54 ng/L White Blood Count 7.1 4.4-10.8 10^3/uL Red Blood Count 4.99 4.5-5.90 10^6/uL Hemoglobin 15.7 13.5-17.5 g/dL Hematocrit 48.5 41.0-53.0 % Mean Corpuscular Volume 97.1 80.0-100.0 fL Mean Corpuscular Hemoglobin 31.5 28.0-32.0 pg Mean Corpuscular Hemoglobin Concent 32.5 32.0-36.0 g/dL Red Cell Distribution Width 15.9 H 11.8-14.3 % Platelet Count 195 140-450 10^3/uL Mean Platelet Volume 7.5 6.9-10.8 fL Neutrophils (%) (Auto) 74.3 37.0-80.0 % Lymphocytes (%) (Auto) 13.7 10.0-50.0 % Monocytes (%) (Auto) 11.2 0.0-12.0 % Eosinophils (%) (Auto) 0.4 0.0-7.0 % Basophils (%) (Auto) 0.4 0.0-2.0 % Neutrophils # (Auto) 5.3 1.6-8.6 10 ^3/uL Lymphocytes # (Auto) 1.0 0.4-5.4 10 ^3/uL Monocytes # (Auto) 0.8 0-1.3 10 ^3/uL Eosinophils # (Auto) 0 0-0.8 10 ^3/uL Basophils # (Auto) 0 0-0.2 10 ^3/uL Nucleated Red Blood Cells 0.1 % Sodium Level 137 136-145 mmol/L Potassium Level 4.3 3.5-5.1 mmol/L Chloride Level 100 98-107 mmol/L Carbon Dioxide Level 29 20-31 mmol/L Anion Gap 8 5-15 Blood Urea Nitrogen 19 9-23 mg/dL Creatinine 1.14 0.700-1.30 mg/dL Glomerular Filtration Rate Calc 72 >90 mL/min BUN/Creatinine Ratio 16.7 10.0-20.0 Serum Glucose 114 H 74-106 mg/dL Lactic Acid Level 1.2 0.4-2.0 mmol/L Calcium Level 9.0 8.7-10.4 mg/dL B-Type Natriuretic Peptide 244.24 0-100 pg/mL Assessment/Plan Assessment/Plan Impression: -acute hypoxic and hypercarbic respiratory failure -COPD with exacerbation -history of nicotine dependence -acute decompensated diastolic heart failure -obesity -history of seizure disorder Plan: -admit to telemetry unit -O2 supplementation to keep saturation greater than 91%. BiPAP p.r.n. dyspnea, worsening hypercarbia -patient was states that he has been abstained from smoking tobacco for three weeks. -bronchodilators q.4 hours -add inhaled corticosteroids, budesonide 0.5 mg b.i.d. -patient was states that he was currently off seizure medications since his recent brain surgery. Monitor for seizures at this time. -[address] depression anterior lateral leads. Cardiology consultation with his primary payroll human resources assistant Dr. Archer -repeat labs in a.m. -IV diuresis Critical care time spent with patient discussing and formulating plan of care: 40 minutes. This does not include time spent performing procedures. This medical document was created using an electronic medical record system with [employer] dictation system. Although this document has been carefully reviewed, there may still be some phonetic and typographical errors. These areas are purely typographical due to imperfections of the software programs, and do not reflect any compromise in the patient's medical care. Plan discussed with: Patient, Other My Orders Orders - KATHRYN CHAMORRO HYPO DIPPER Procedure Category Date Status Time Admit ADMIT 07/09/24 Transmitted 12:55 Nitroglycerin PHA 07/09/24 In Process Sublingual (Ntrostat 13:00 Morphine Sulfate PHA 07/09/24 In Process Injection 13:00 Stat Ekg For Chest STEF 07/09/24 In Process Pain 12:55 Notify Md Of Changes STEF 07/09/24 In Process From Base 12:55 Family Law Legal Assistant For STEF 07/09/24 In Process 24 Hours 12:55 Emergency Dysrhythmia STEF 07/09/24 In Process Protocol 12:55 Rhythm Strips Once STEF 07/09/24 In Process Every Shift 12:55 Oxygen By Nasal RT 07/09/24 Transmitted Cannula 12:55 Chest Portable XY 07/10/24 Logged 04:00 D-Dimer LAB 07/09/24 In Process 12:55 Basic Metabolic Panel LAB 07/10/24 Verified 04:00 Complete Blood Count LAB 07/10/24 Verified 04:00 Furosemide Injection PHA 07/10/24 In Process (Lasix Injection) 10:00 Bupropion Tablet PHA 07/09/24 In Process (Wellbutrin Tablet) 22:00 Gabapentin Capsule PHA 07/09/24 In Process (Neurontin Capsule) 14:00 Topiramate (Topamax) PHA 07/09/24 In Process 22:00 Trazodone Hcl PHA 07/09/24 In Process (Desyrel) 22:00 Cardiac DIET 07/09/24 Transmitted Diet-2gna,Lofat,Lochol Lunch Complete Blood Count LAB 07/09/24 Logged 13:07 Nicotine 21mg/24hr PHA 07/09/24 In Process (Nicoderm 21mg/24hr) 13:15 Date of Service: Jul 09, 2024 Billing Provider: KATHRYN CHAMORRO NP Common Visit Codes: [id number] CARE 30-74 MIN KATHRYN CHAMORRO NP Jul 09, 2024 13:50
[2024-07-09] MEDS: IPRATROPIUM BROM 0.5 MG/2.5ML INH SOL NEB SCH (14:25)
[2024-07-09] MEDS: ALBUTEROL SULF 2.5 MG/0.5ML(0.5%) NEB SOLN NEB SCH (14:25)
[2024-07-09 15:03] LABS: Basophils # (auto) 0 10 ^3/uL (0-0.2); Basophils % (auto) 0.5 % (0.0-2.0); Eosinophils # (auto) 0 10 ^3/uL (0-0.8); Eosinophils % (auto) 0.1 % (0.0-7.0); Hematocrit 49.7 % (41.0-53.0); Hemoglobin 16.2 g/dL (13.5-17.5); Lymphocytes # (auto) 0.5 10 ^3/uL (0.4-5.4); Lymphocytes % (auto) 7.5 % (10.0-50.0); Mean Corpuscular Hemoglobin 31.4 pg (28.0-32.0); Mean Corpuscular Hgb Conc. 32.5 g/dL (32.0-36.0); Mean Corpuscular Volume 96.8 fL (80.0-100.0); Monocytes # (auto) 0.2 10 ^3/uL (0-1.3); Monocytes % (auto) 3.3 % (0.0-12.0); Neutrophils # (auto) 6.4 10 ^3/uL (1.6-8.6); Neutrophils % (auto) 88.6 % (37.0-80.0); Nucleated Red Blood Cells % 0.3 %; Platelet Count (auto) 190 10^3/uL (140-450); Red Blood Cells 5.14 10^6/uL (4.5-5.90); Red Cell Distribution Width 15.6 % (11.8-14.3); White Blood Cell 7.2 10^3/uL (4.4-10.8)
[2024-07-09] MEDS: GABAPENTIN 300 MG CAP PO SCH (16:53)
[2024-07-09] MEDS: NICOTINE 21MG/24 HR TOPICAL PATCH TD SCH (16:54)
--- NOTE | 2024-07-09 18:42 | ECG ---
[facility] Test Date: 2024-07-09 Test Time: 10:49:55 Pat Name: NATHALIE SIERRA Department: ER Room: [address] [place] [address] Gender: M Radiology Interventional Physician: DR YANES: 1960 Requested By: RADHA SEAY Order Number: [id number] Reading MD: Ezio Pope Measurements Intervals [place] Rate: 86 P: 28 HI: 182 QRS: 0 QRSD: 84 T: -74 QT: 403 QTc: 482 Interpretive Statements Sinus rhythm Abnrm T, consider ischemia, anterolateral lds Electronically Signed On 07-09-2024 18:50:43 PST by Ezio Pope Please click the below link to view image of tracing.
[2024-07-09] MEDS: BUDESONIDE (INHALATION) 0.5 MG/2 ML NEB NEB SCH (18:45)
[2024-07-09 19:07] LABS: COVID19 ANTIGEN SOFIA FIA NEGATIVE (NEGATIVE); Rapid Influenza A Negative (Negative); Rapid Influenza B Negative (Negative)
[2024-07-09] MEDS ORDERED: TOPIRAMATE 100 MG TAB PO SCH (22:00)
[2024-07-09] MEDS: buPROPion HCL 75 MG TAB PO SCH (22:58)
[2024-07-09] MEDS: traZODone HCL 50 MG TAB PO SCH (22:58)
[2024-07-10] VITALS (18 sets, daily range): BP systolic 104–134; BP diastolic 55–68; PULSE 57–100; RESP 16–19; TEMP 97.5–98.3; O2SAT 90–99
[2024-07-10] MEDS ORDERED: HYDROcodone-ACET 7.5/325MG TAB PO PRN (02:15)
--- NOTE | 2024-07-10 07:21 | DVH ---
EXAM: XR Chest, 1 View CLINICAL INDICATION: chf TECHNIQUE: Frontal view of the chest. COMPARISON: XY CHEST PORTABLE on DOS: 07/09/24, CHEST PORTABLE on DOS: 02/19/20 FINDINGS: LUNGS AND PLEURAL SPACES: See below. HEART: Cardiomegaly with mild congestion. MEDIASTINUM: Unremarkable. Normal mediastinal contour. BONES/JOINTS: Unremarkable. No acute fracture. OTHER FINDINGS: . IMPRESSION: Cardiomegaly with mild congestion.
--- NOTE | 2024-07-10 08:11 | DVHINCON2 ---
Date of service: Jul 10, 2024 History of Present Illness History of Present Illness The patient was a 63-year-old male transport to the emergency room by EMS with reports of shortness of breath. Patient was had worsening shortness of breath with a past four days, with it exacerbated to the point where he called 911. Patient was found to be severely hypoxic at home. Patient was treated with bronchodilators, O2 supplementation, IV steroids with the patient having persistent dyspnea. ABG was performed which revealed hypercarbic and hypoxic respiratory failure for which the patient was placed on BiPAP. At the time of assessment, the patient was states that he was not getting enough support from the BiPAP and took it off. Patient is now on 6 L via simple mask. Patient reports a significant history of recent back surgery, history of craniectomy for his seizure disorder, hypertension, and CHF. Patient was states that he stopped smoking tobacco cigarettes three weeks ago, but states that he was smoked cigarettes for over 30 years. 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 Past Surgical History: Other (Craniectomy, lower back surgery) Family History: None Smoke: # pack years (30) ALCOHOL: none Drugs: None Lives: with Family Past Medical History reviewed Family History: Cerebrovascular accident (CVA) G8 FATHER FH: cancer G8 MOTHER Allergies: Coded Allergies: NO KNOWN ALLERGIES (Unverified , 06/13/19) Home Meds Active Scripts Prednisone (Prednisone) 20 Mg Tab, 60 MG PO DAILY, #21 TAB Prov:KADE MOISE 06/29/24 Gabapentin (Gabapentin) 600 Mg Tab, 1 TAB PO BID, #30 TAB Prov:KADE MOISE 06/29/24 Ibuprofen Micronized (Ibuprofen) 600 Mg Tab, 600 MG PO Q8HR PRN for 30 Days, #90 TAB 0 Refills Prov:TAYLOR MO [employer]CHER [employer] 05/23/24 Hydrocodone-Acetaminophen (Hydrocodone Bitartrate/AC 10-325 mg) 1 Tab Tab, 1 TAB PO Q6HP PRN for 4 Days, #16 TAB 0 Refills Prov:TAYLOR MO [employer] 05/23/24 Methylprednisolone (Medrol Dosepak) 4 Mg Khanh, 4 MG PO UD, #21 TAB UAD Prov:NATHAN GEE RESIDENT 03/18/24 Azithromycin (Zithromax) 500 Mg Tab, 500 MG PO DAILY for 1 Day, #1 TAB Prov:GEETAMELLISSA NATHAN Cifuentes RESIDENT 03/18/24 Azithromycin (Zithromax) 250 Mg Tab, 250 MG PO DAILY for 4 Days, #4 TAB Prov:GEETAMELLISSA NATHAN Cifuentes RESIDENT 03/18/24 Hydrocodone-Acetaminophen (Hydrocodone Bitartrate/AC 5-325 mg) 1 Tab Tab, 1 TAB PO Q8HP PRN for 5 Days, #15 TAB Prov:CHIKA IZQUIERDO MD 07/08/23 Acetaminophen (Tylenol Extra Strength Fo) 500 Mg Tab, 650 MG PO TID, #30 TAB Prov:KADE MOISE 05/08/23 Cephalexin ( Keflex 500) 500 Mg Cap, 1 CAP PO QID for 7 Days, #28 CAP 0 Refills Prov:SUSANNA RIVERA [facility] 04/28/22 Lidocaine (LIDODERM 5% TOPICAL PATCH) 1 Patch Ph, 1 PATCH TOP DAILY PRN, #30 PATCH 1 Refill Prov:SUSANNA RIVERA [facility] 04/28/22 Ibuprofen Micronized (Ibuprofen) 600 Mg Tab, 600 MG PO Q8HPRN PRN, #30 TAB 0 Refills Prov:SUSANNA RIVERA [facility] 04/28/22 Reported Medications Trazodone Hcl (Trazodone Hcl) 100 Mg Tab, 200 QHSP, 0 Refills 10/08/11 Discontinued Reported Medications Prednisone (Prednisone) 20 Mg Tab, 50 MG PO BID, MG 03/18/24 Diphenhydramine Hcl (Diphenhydramine Hcl) 25 Mg Cap, 25 MG PO DAILYP PRN for SEIZURES, MG 03/18/24 Gabapentin (Gabapentin) 300 Mg Cap, 300 MG PO TID for 30 Days, MG 03/18/24 Doxycycline Hyclate (Doxycycline Hyclate) 100 Mg Cap, 100 MG PO BID, MG 03/18/24 Bupropion Hcl (Bupropion Hcl) 75 Mg Tab, 150 MG PO BID for 30 Days 03/18/24 Varenicline Tartrate (Varenicline Tartrate Cont) 1 Mg Tab, 1 MG PO BID, TAB 03/18/24 Atorvastatin Calcium (Lipitor) 40 Mg Tab, 1 TAB PO QPM, #90 TAB 1 Refill 03/18/24 Cholecalciferol (VITAMIN D3) 2,000 Unit Tab, 1 TAB PO DAILY, #30 TAB 5 Refills 03/18/24 Meloxicam (Meloxicam) 15 Mg Tab, 1 TAB PO DAILY, #30 TAB 2 Refills 03/18/24 Furosemide (Furosemide) 40 Mg Tab, 40 MG PO DAILY for 30 Days 03/18/24 Losartan Potassium (Losartan Potassium) 25 Mg Tab, 1 TAB PO DAILY, #90 TAB 1 Refill 03/18/24 Nicotine (Nicotine Transdermal Syst) 14 Mg/24 Hr Dis, 14 MG TD DAILY, DIS 02/19/20 Fluticasone Propionate (Nasal) (Allergy Nasal [place] 24 Ho) 50 Mcg/Act Spr, 1 SPRAY NA DAILYP, SPRAY 02/19/20 Naproxen (NAPROSYN TABLET) 500 Mg Tb, 1 TAB PO BID, #60 TAB 1 Refill 06/19/17 Baclofen (Baclofen) 10 Mg Tab, 20 MG PO Q8HR for 30 Days, MG 06/19/17 Topiramate (Topamax) 100 Mg Tab, 300 BID, 0 Refills 10/08/11 Divalproex Sodium (Depakote Er) 500 Mg Tab, 1500 BID, 0 Refills 10/08/11 Current Medications Current Medications Medications (Trade) Dose Ordered Sig/Kerrie Route PRN Reason Start Time Stop Time Status Last Admin Nitroglycerin (Ntrostat Sublingual) 0.4 mg Q5MINP PRN SL FOR CHEST PAIN 07/09/24 13:00 Morphine Sulfate 2 mg Q30M PRN IV FOR CHEST PAIN 07/09/24 13:00 Furosemide (Lasix Injection) 40 mg DAILY IV 07/10/24 10:00 Bupropion HCl (Wellbutrin Tablet) 150 mg BID PO 07/09/24 22:00 07/09/24 22:58 Gabapentin (Neurontin Capsule) 300 mg TID PO 07/09/24 14:00 07/10/24 05:32 Topiramate (Topamax) 300 mg BID PO 07/09/24 22:00 07/09/24 13:40 DC Trazodone HCl (Desyrel) 200 mg QHSP PO 07/09/24 22:00 07/09/24 22:58 Nicotine (Nicoderm 21MG/ 24HR) 1 patch DAILY TD 07/09/24 13:15 07/09/24 16:54 Albuterol (Ventolin Medneb) 2.5 mg Q4HWA NEB 07/09/24 14:00 07/09/24 22:44 Ipratropium [place] (Atrovent Medneb) 0.5 mg Q4HWA NEB 07/09/24 14:00 07/09/24 22:44 Budesonide (Pulmicort) 0.5 mg BID NEB 07/09/24 22:00 07/09/24 18:45 Acetaminophen/ Hydrocodone Bitart ([place] 7.5/325MG Tab) 1 tab Q6HP PRN PO SEVERE PAIN (7-10 PAIN SCALE) 07/10/24 02:15 Review of Systems not obtained,pt sleeping Vital Signs Vital Signs Date Time Temp Pulse Resp B/P (MAP) Pulse Ox O2 Delivery O2 Flow Rate FiO2 07/10/24 06:40 92 18 98 07/10/24 06:30 Oxymizer 10.0 07/10/24 06:30 N/A 07/10/24 05:00 97.5 106/67 (80) 97.5 Physical Exam nad s1 s2 rrr ctab soft n/nd Labs/Diagnostic Data Labs Test 07/09/24 18:29 07/09/24 14:36 07/09/24 13:00 07/09/24 11:25 Range/Units Influenza Type A Antigen Negative Negative Influenza Type B Antigen Negative Negative SARS-CoV-2 Antigen (Rapid) Negative NEGATIVE White Blood Count 7.2 4.4-10.8 10^3/uL Red Blood Count 5.14 4.5-5.90 10^6/uL Hemoglobin 16.2 13.5-17.5 g/dL Hematocrit 49.7 41.0-53.0 % Mean Corpuscular Volume 96.8 80.0-100.0 fL Mean Corpuscular Hemoglobin 31.4 28.0-32.0 pg Mean Corpuscular Hemoglobin Concent 32.5 32.0-36.0 g/dL Red Cell Distribution Width 15.6 H 11.8-14.3 % Platelet Count 190 140-450 10^3/uL Mean Platelet Volume 7.5 6.9-10.8 fL Neutrophils (%) (Auto) 88.6 H 37.0-80.0 % Lymphocytes (%) (Auto) 7.5 L 10.0-50.0 % Monocytes (%) (Auto) 3.3 0.0-12.0 % Eosinophils (%) (Auto) 0.1 0.0-7.0 % Basophils (%) (Auto) 0.5 0.0-2.0 % Neutrophils # (Auto) 6.4 1.6-8.6 10 ^3/uL Lymphocytes # (Auto) 0.5 0.4-5.4 10 ^3/uL Monocytes # (Auto) 0.2 0-1.3 10 ^3/uL Eosinophils # (Auto) 0 0-0.8 10 ^3/uL Basophils # (Auto) 0 0-0.2 10 ^3/uL Nucleated Red Blood Cells 0.3 % Troponin I High Sensitivity 71 *H </=54 ng/L Blood Gas Specimen Type Arterial Blood Gas Sample Site Right brachial Blood Gas Patient Temperature 37.0 Arterial Blood Date Drawn [id number] Arterial Blood pH 7.246 *L 7.350-7.450 Arterial Blood Partial Pressure CO2 71.0 *H 35.0-48.0 mmHg Arterial Blood Partial Pressure O2 390.0 *H 83.0-108.0 mmHg Arterial Blood HCO3 30.2 H 21.0-28.0 mmol/L Arterial Blood Oxygen Saturation 99.9 H 94.0-98.0 % Arterial Blood Base Excess 0.3 -2.0-3.0 mmol/L Arterial Blood Oxyhemoglobin 97.9 94.0-98.0 % Arterial Blood Carboxyhemoglobin 1.3 0.5-1.5 % Arterial Blood Methemoglobin 0.7 0.0-1.5 % Lb Test N/a Blood Gas Total Hemoglobin 17.00 13.5-17.5 g/dL Blood Gas Liter Flow 15.00 Blood Gas Modality Mask - nrb FiO2 % 100.0 Blood Gas Critical Value Read Back Yes Blood Gas Notified Whom rose mary Whiteside md Blood Gas Notified Time [id number] Blood Gas Notified By Adilene vega rrt D-Dimer, Quantitative 1.16 H 0.0-0.49 mg/L FEU Sodium Level 137 136-145 mmol/L Potassium Level 4.3 3.5-5.1 mmol/L Chloride Level 100 98-107 mmol/L Carbon Dioxide Level 29 20-31 mmol/L Anion Gap 8 5-15 Blood Urea Nitrogen 19 9-23 mg/dL Creatinine 1.14 0.700-1.30 mg/dL Glomerular Filtration Rate Calc 72 >90 mL/min BUN/Creatinine Ratio 16.7 10.0-20.0 Serum Glucose 114 H 74-106 mg/dL Lactic Acid Level 1.2 0.4-2.0 mmol/L Calcium Level 9.0 8.7-10.4 mg/dL B-Type Natriuretic Peptide 244.24 0-100 pg/mL Assessment copd co2 retention sob obesity morbid elevated troponin ckd abnormal ecg Plan/Recommendation treat co2 per hospitalist, cpap/bipap as needed TWI anteriorly on ecg-- no chest pain, pt had LHC with [place] 2017 showing no cad trend trops prob 2/2 to co2 retention and acidemia check echo cont bp meds Plan discussed with: Patient REBEKAH LOZANO MD Jul 10, 2024 08:11
[2024-07-10] MEDS: FUROSEMIDE 40 MG/4 ML VIAL IV SCH (10:19)
[2024-07-10] MEDS: oxyCODONE HCL 5MG TAB PO PRN (11:50)
--- NOTE | 2024-07-10 13:50 | CONS ---
Home Medication Review Med Rec on Admission: Scheduled Gabapentin (Gabapentin), 1 TAB PO BID Prednisone (Prednisone), 60 MG PO DAILY Primidone (Mysoline Tablet), 1 TAB PO BID, (Reported) Trazodone Hcl (Trazodone Hcl), 3 TAB PO QHSP, (Reported) Scheduled PRN Ibuprofen Micronized (Ibuprofen), 600 MG PO Q8HR PRN Morphine Sulfate (Morphine Sulfate), 1 TAB PO Q4HP PRN for PAIN SCALE 7 THRU 10, (Reported) Discontinued Medications Atorvastatin Calcium (Lipitor), 1 TAB PO QPM, (Reported) Baclofen (Baclofen), 20 MG PO Q8HR, (Reported) Bupropion Hcl (Bupropion Hcl), 150 MG PO BID, (Reported) Cholecalciferol (Vitamin D3), 1 TAB PO DAILY, (Reported) Diphenhydramine Hcl (Diphenhydramine Hcl), 25 MG PO DAILYP PRN for SEIZURES, (Reported) Divalproex Sodium (Depakote Er), 1,500 BID, (Reported) Doxycycline Hyclate (Doxycycline Hyclate), 100 MG PO BID, (Reported) Fluticasone Propionate (Nasal) (Allergy Nasal [place] 24 Ho), 1 SPRAY NA DAILYP, (Reported) Furosemide (Furosemide), 40 MG PO DAILY, (Reported) Gabapentin (Gabapentin), 300 MG PO TID, (Reported) Losartan Potassium (Losartan Potassium), 1 TAB PO DAILY, (Reported) Meloxicam (Meloxicam), 1 TAB PO DAILY, (Reported) Naproxen (Naprosyn Tablet), 1 TAB PO BID, (Reported) Nicotine (Nicotine Transdermal Syst), 14 MG TD DAILY, (Reported) Prednisone (Prednisone), 50 MG PO BID, (Reported) Topiramate (Topamax), 300 BID, (Reported) Varenicline Tartrate (Varenicline Tartrate Cont), 1 MG PO BID, (Reported) Med Rec on Discharge: Electronic Scripts Active Scripts Prednisone (Prednisone) 20 Mg Tab, 60 MG PO DAILY, #21 TAB Prov:KADE MOISE 06/29/24 Gabapentin (Gabapentin) 600 Mg Tab, 1 TAB PO BID, #30 TAB Prov:KADE MOISE 06/29/24 Ibuprofen Micronized (Ibuprofen) 600 Mg Tab, 600 MG PO Q8HR PRN for 30 Days, #90 TAB 0 Refills Prov:TAYLOR MO [employer] 05/23/24 Reported Medications Primidone (MYSOLINE TABLET) 50 Mg Tb, 1 TAB PO BID for 30 Days, #60 TAKE 1 TABLET BY MOUTH AT BEDTIME FOR 7 DAYS, THEN TAKE 1 TABLET BY MOUTH TWICE A DAY 9AM AND 9PM THEREAFTER. 07/10/24 Morphine Sulfate (Morphine Sulfate) 15 Mg Tab, 1 TAB PO Q4HP PRN for PAIN SCALE 7 THRU 10 for 30 Days, #180 07/10/24 Trazodone Hcl (Trazodone Hcl) 100 Mg Tab, 3 TAB PO QHSP for 30 Days, #90 10/08/11 Discontinued Reported Medications Prednisone (Prednisone) 20 Mg Tab, 50 MG PO BID, MG 03/18/24 Diphenhydramine Hcl (Diphenhydramine Hcl) 25 Mg Cap, 25 MG PO DAILYP PRN for SEIZURES, MG 03/18/24 Gabapentin (Gabapentin) 300 Mg Cap, 300 MG PO TID for 30 Days, MG 03/18/24 Doxycycline Hyclate (Doxycycline Hyclate) 100 Mg Cap, 100 MG PO BID, MG 03/18/24 Bupropion Hcl (Bupropion Hcl) 75 Mg Tab, 150 MG PO BID for 30 Days 03/18/24 Varenicline Tartrate (Varenicline Tartrate Cont) 1 Mg Tab, 1 MG PO BID, TAB 03/18/24 Atorvastatin Calcium (Lipitor) 40 Mg Tab, 1 TAB PO QPM, #90 TAB 1 Refill 03/18/24 Cholecalciferol (VITAMIN D3) 2,000 Unit Tab, 1 TAB PO DAILY, #30 TAB 5 Refills 03/18/24 Meloxicam (Meloxicam) 15 Mg Tab, 1 TAB PO DAILY, #30 TAB 2 Refills 03/18/24 Furosemide (Furosemide) 40 Mg Tab, 40 MG PO DAILY for 30 Days 03/18/24 Losartan Potassium (Losartan Potassium) 25 Mg Tab, 1 TAB PO DAILY, #90 TAB 1 Refill 03/18/24 Nicotine (Nicotine Transdermal Syst) 14 Mg/24 Hr Dis, 14 MG TD DAILY, DIS 02/19/20 Fluticasone Propionate (Nasal) (Allergy Nasal [place] 24 Ho) 50 Mcg/Act Spr, 1 SPRAY NA DAILYP, SPRAY 02/19/20 Naproxen (NAPROSYN TABLET) 500 Mg Tb, 1 TAB PO BID, #60 TAB 1 Refill 06/19/17 Baclofen (Baclofen) 10 Mg Tab, 20 MG PO Q8HR for 30 Days, MG 06/19/17 Topiramate (Topamax) 100 Mg Tab, 300 BID, 0 Refills 10/08/11 Divalproex Sodium (Depakote Er) 500 Mg Tab, 1500 BID, 0 Refills 10/08/11 Notes Notes: Edited: Trazodone Hcl 100 mg tab. Take 3 tablets by mouth at bedtime. Confirmed with patient 07/10/24 @ 1343 Discharge Data Labs: Laboratory Results Test 07/09/24 18:29 07/09/24 14:36 07/09/24 13:00 07/09/24 11:25 Influenza Type A Antigen Negative (Negative) Influenza Type B Antigen Negative (Negative) SARS-CoV-2 Antigen (Rapid) Negative (NEGATIVE) White Blood Count 7.2 10^3/uL (4.4-10.8) Red Blood Count 5.14 10^6/uL (4.5-5.90) Hemoglobin 16.2 g/dL (13.5-17.5) Hematocrit 49.7 % (41.0-53.0) Mean Corpuscular Volume 96.8 fL (80.0-100.0) Mean Corpuscular Hemoglobin 31.4 pg (28.0-32.0) Mean Corpuscular Hemoglobin Concent 32.5 g/dL (32.0-36.0) Red Cell Distribution Width 15.6 % (11.8-14.3) Platelet Count 190 10^3/uL (140-450) Mean Platelet Volume 7.5 fL (6.9-10.8) Neutrophils (%) (Auto) 88.6 % (37.0-80.0) Lymphocytes (%) (Auto) 7.5 % (10.0-50.0) Monocytes (%) (Auto) 3.3 % (0.0-12.0) Eosinophils (%) (Auto) 0.1 % (0.0-7.0) Basophils (%) (Auto) 0.5 % (0.0-2.0) Neutrophils # (Auto) 6.4 10 ^3/uL (1.6-8.6) Lymphocytes # (Auto) 0.5 10 ^3/uL (0.4-5.4) Monocytes # (Auto) 0.2 10 ^3/uL (0-1.3) Eosinophils # (Auto) 0 10 ^3/uL (0-0.8) Basophils # (Auto) 0 10 ^3/uL (0-0.2) Nucleated Red Blood Cells 0.3 % Troponin I High Sensitivity 71 ng/L (</=54) Blood Gas Specimen Type Arterial Blood Gas Sample Site Right brachial Blood Gas Patient Temperature 37.0 Arterial Blood Date Drawn [id number] Arterial Blood pH 7.246 (7.350-7.450) Arterial Blood Partial Pressure CO2 71.0 mmHg (35.0-48.0) Arterial Blood Partial Pressure O2 390.0 mmHg (83.0-108.0) Arterial Blood HCO3 30.2 mmol/L (21.0-28.0) Arterial Blood Oxygen Saturation 99.9 % (94.0-98.0) Arterial Blood Base Excess 0.3 mmol/L (-2.0-3.0) Arterial Blood Oxyhemoglobin 97.9 % (94.0-98.0) Arterial Blood Carboxyhemoglobin 1.3 % (0.5-1.5) Arterial Blood Methemoglobin 0.7 % (0.0-1.5) Lb Test N/a Blood Gas Total Hemoglobin 17.00 g/dL (13.5-17.5) Blood Gas Liter Flow 15.00 Blood Gas Modality Mask - nrb FiO2 % 100.0 Blood Gas Critical Value Read Back Yes Blood Gas Notified Whom rose mary Whiteside md Blood Gas Notified Time [id number] Blood Gas Notified By Adilene vega rrt D-Dimer, Quantitative 1.16 mg/L FEU (0.0-0.49) Sodium Level 137 mmol/L (136-145) Potassium Level 4.3 mmol/L (3.5-5.1) Chloride Level 100 mmol/L (98-107) Carbon Dioxide Level 29 mmol/L (20-31) Anion Gap 8 (5-15) Blood Urea Nitrogen 19 mg/dL (9-23) Creatinine 1.14 mg/dL (0.700-1.30) Glomerular Filtration Rate Calc 72 mL/min (>90) BUN/Creatinine Ratio 16.7 (10.0-20.0) Serum Glucose 114 mg/dL (74-106) Lactic Acid Level 1.2 mmol/L (0.4-2.0) Calcium Level 9.0 mg/dL (8.7-10.4) B-Type Natriuretic Peptide 244.24 pg/mL (0-100) Other Laboratory Tests 07/09/24 14:36 07/09/24 11:25 ISAIAH CIFUENTES [facility] [place] Jul 10, 2024 13:50
--- NOTE | 2024-07-10 13:54 | DVHPN2 ---
Subjective Patient continues to report having some shortness of breath with activity. Reviewed: Care Plan, H&P, Labs, Medications, Previous Orders Changes from previous H/P or p: No Changes General: Per HPI Eyes: No Pain, No Vision change, No Conjunctivae inflammation, No Eyelid inflammation, No Other, No Redness ENT: No Ear pain, No Ear discharge, No Nose pain, No Nose discharge, No Nose congestion, No Mouth pain, No Mouth swelling, No Throat pain, No Throat swelling, No Other Cardiovascular: No Chest Pain, No Palpitations, No Orthopnea, No Paroxysmal Noc. Dyspnea, No Edema, No Lt Headedness, No Other Respiratory: Cough, SOB with excertion, Wheezing Gastrointestinal: No Nausea, No Vomiting, No Abdominal Pain, No Diarrhea, No Constipation, No Melena, No Hematochezia, No Other Genitourinary: No Dysuria, No Frequency, No Incontinence, No Hematuria, No Retention, No Other Musculoskeletal: No other, No neck pain, No shoulder pain, No arm pain, No back pain, No hand pain, No leg pain, No foot pain Skin: No Rash, No Lesions, No Jaundice, No Bruising, No Other Objective Vitals Vital Signs Date Time Temp Pulse Resp B/P (MAP) Pulse Ox O2 Delivery O2 Flow Rate FiO2 07/10/24 10:30 68 16 99 07/10/24 10:19 108/65 07/10/24 09:00 97.7 97.7 07/10/24 06:30 Oxymizer 10.0 07/10/24 06:30 N/A Intake/Output Intake and Output 07/10/24 06:59 Intake Total 290 ml Output Total 700 ml Balance -410 ml Intake Oral 240 ml IV Total 50 ml Output Urine Total 700 ml # Voids 1 General Appearance: Alert, Oriented X3, Cooperative, mild distress HEENT: Atraumatic, PERRLA Neck: Carotid [place]its [place], Enlarged Thyroid Lungs: Clear to auscultation Cardiovascular: Normal S1, Normal S2 Abdomen: Normal bowel sounds, Soft, No tenderness Genitourinary: No Apparent Abnormalities Musculoskeletal: Normal sensory function, Normal motor function Psych/Mental Status: Mental status NL, Mood NL Medications Current Medications Medications Dose Ordered Sig/Kerrie Route Start Time Stop Time Status Last Admin Dose Admin Nitroglycerin 0.4 mg Q5MINP PRN SL 07/09/24 13:00 Morphine Sulfate 2 mg Q30M PRN IV 07/09/24 13:00 Furosemide 40 mg DAILY IV 07/10/24 10:00 07/10/24 10:19 40 MG Bupropion HCl 150 mg BID PO 07/09/24 22:00 07/10/24 10:19 150 MG Gabapentin 300 mg TID PO 07/09/24 14:00 07/10/24 05:32 300 MG Trazodone HCl 200 mg QHSP PO 07/09/24 22:00 07/09/24 22:58 200 MG Nicotine 1 patch DAILY TD 07/09/24 13:15 07/10/24 10:19 1 PATCH Albuterol 2.5 mg Q4HWA NEB 07/09/24 14:00 07/10/24 10:19 2.5 MG Ipratropium [place] 0.5 mg Q4HWA NEB 07/09/24 14:00 07/10/24 10:19 0.5 MG Budesonide 0.5 mg BID NEB 07/09/24 22:00 07/10/24 08:46 0.5 MG Oxycodone HCl 5 mg Q4HP PRN PO 07/10/24 11:15 07/10/24 11:50 5 MG Laboratory Results Laboratory Tests 07/09/24 11:25 07/09/24 14:36 Microbiology Microbiology Date/Time Source Procedure Growth Status 07/09/24 11:25 Blood Blood Culture - Preliminary NO GROWTH AFTER 24 HOURS OF INCUBATION. Resulted Labs and/or images reviewed: Labs reviewed by me, Image(s) reviewed by me Assessment/Plan Assessment/Plan Impression: -acute hypoxic and hypercarbic respiratory failure -COPD with exacerbation -history of nicotine dependence -acute decompensated diastolic heart failure -obesity -history of seizure disorder Plan: -events: Patient continues to be on Oxymizer at 8 liters/minute. Oxygen saturation 91%. Patient continues to report having dyspnea with ambulation. Repeat chest x-ray continues to have pulmonary vascular congestion. Patient continues to have moderate inspiratory and expiratory wheezing. -O2 supplementation to keep saturation greater than 91%. BiPAP p.r.n. dyspnea, worsening hypercarbia -patient was states that he has been abstained from smoking tobacco for three weeks. -bronchodilators q.4 hours -Solu-Medrol 40 mg IV t.i.d. Continue IV diuresis -add inhaled corticosteroids, budesonide 0.5 mg b.i.d. -patient was states that he was currently off seizure medications since his recent brain surgery. Monitor for seizures at this time. -echocardiogram -repeat labs and chest x-ray in a.m. -IV diuresis Critical care time spent with patient discussing and formulating plan of care: 40 minutes. This does not include time spent performing procedures. This medical document was created using an electronic medical record system with [employer] dictation system. Although this document has been carefully reviewed, there may still be some phonetic and typographical errors. These areas are purely typographical due to imperfections of the software programs, and do not reflect any compromise in the patient's medical care. Plan discussed with: Patient, Other (RN) My Orders Orders - KATHRYN CHAMORRO NP Procedure Category Date Status Time Oxycodone Immediate PHA 07/10/24 In Process Rel Tablet 11:15 Ceftriaxone Ivpb PHA 07/11/24 Transmitted Rocephin 09:00 Echo 2d Mode Cardiac US 07/10/24 Transmitted DOP 13:45 Methylprednisolone PHA 07/10/24 Transmitted Sod Succ (Solu Medrol 14:00 Chest Portable XY 07/11/24 Transmitted 04:00 Date of Service: Jul 10, 2024 Billing Provider: KATHRYN CHAMORRO NP Common Visit Codes: [id number] CARE 30-74 MIN KATHRYN CHAMORRO NP Jul 10, 2024 13:54
[2024-07-10 14:37] LABS: Basophils # (auto) 0 10 ^3/uL (0-0.2); Basophils % (auto) 0.2 % (0.0-2.0); Eosinophils # (auto) 0 10 ^3/uL (0-0.8); Hematocrit 46.8 % (41.0-53.0); Hemoglobin 15.1 g/dL (13.5-17.5); Lymphocytes # (auto) 0.9 10 ^3/uL (0.4-5.4); Lymphocytes % (auto) 9.8 % (10.0-50.0); Mean Corpuscular Hemoglobin 31.3 pg (28.0-32.0); Mean Corpuscular Hgb Conc. 32.3 g/dL (32.0-36.0); Mean Corpuscular Volume 96.6 fL (80.0-100.0); Monocytes % (auto) 11.6 % (0.0-12.0); Neutrophils % (auto) 78.4 % (37.0-80.0); Nucleated Red Blood Cells % 0.3 %; Platelet Count (auto) 209 10^3/uL (140-450); Red Blood Cells 4.85 10^6/uL (4.5-5.90); Red Cell Distribution Width 15.9 % (11.8-14.3); White Blood Cell 8.9 10^3/uL (4.4-10.8)
[2024-07-10 15:18] LABS: Anion Gap 6 (5-15); Potassium 4.1 mmol/L (3.5-5.1); Sodium 139 mmol/L (136-145)
[2024-07-10 15:19] LABS: Calcium 9.4 mg/dL (8.7-10.4)
[2024-07-10 15:24] LABS: BUN/Creatinine Ratio 17.6 (10.0-20.0)
[2024-07-10 15:25] LABS: Blood Urea Nitrogen 24 mg/dL (9-23); Carbon Dioxide 36 mmol/L (20-31); Chloride 97 mmol/L (98-107); Glucose 112 mg/dL (74-106)
[2024-07-10] MEDS: methylPREDNISolone SOD SUCC 40 MG/ML VL IV SCH (16:39)
[2024-07-11] VITALS (20 sets, daily range): BP systolic 118–137; BP diastolic 69–77; PULSE 55–76; RESP 14–18; TEMP 97.9–98.3; O2SAT 92–100
--- NOTE | 2024-07-11 07:38 | DVH ---
EXAM: XR Chest, 1 View CLINICAL INDICATION: chf TECHNIQUE: Frontal view of the chest. COMPARISON: XY CHEST PORTABLE on DOS: 07/10/24, XY CHEST PORTABLE on DOS: 07/09/24, CHEST PORTABLE on D OS: 02/19/20 FINDINGS: LUNGS AND PLEURAL SPACES: Unremarkable. No consolidation. No pneumothorax. HEART: Unremarkable. No cardiomegaly. MEDIASTINUM: Unremarkable. Normal mediastinal contour. BONES/JOINTS: Unremarkable. No acute fracture. OTHER FINDINGS: . None. IMPRESSION: No acute cardiopulmonary process.
[2024-07-11] MEDS: cefTRIAXone 1GM/50ML D5W 50 ML IV SCH (09:48)
--- NOTE | 2024-07-11 11:54 | DVHSR ---
APPROVED REPORT EXAM: LIMITED Two-dimensional and M-mode echocardiogram with Doppler and color Doppler. Blood Pressure: 108/65 mmHg INDICATION Acute heart failure RISK FACTORS Obesity: Height: 5'10", Weight: 269 DIMENSIONS LVDd4.6 (3.8-5.7cm)LA (2D) (1.9-4.0cm)Aortic Root (2.0-3.7cm) LVDs3.2 (2.5-4.0cm)LA (MM) (1.9-4.0cm)Aortic Cusp Exc (1.5-2.0cm) EF (%) 60.0 (55-70%)Rt. Atrium (1.9-4.0cm)Asc. Aorta cm IVSd1.2 (0.7-1.1cm)RV (D) (1.8-2.4cm) PWd1.2 (0.7-1.1cm) Mitral Valve MitralMitral Stenosis E/A ratio0.02D MVAcm2 Other Information Quality : Technically LimitedRhythm : Technically limited study due to body habitus, limited repeat to eval EF. Conclusion lvef 60% by visual estimate normal rv function trivial pericardial effsuion noted
--- NOTE | 2024-07-11 12:15 | DVHPN2 ---
Progress Note Date Seen: Jul 11, 2024 Medical Necessity Reason Pt with a Central, PICC or Fol: No Objective vital signs Vital Sign Date Time Temp Pulse Resp B/P (MAP) Pulse Ox O2 Delivery O2 Flow Rate FiO2 07/11/24 10:14 67 18 95 07/11/24 10:07 Oxymizer 6.0 07/11/24 10:07 52 52 07/11/24 09:47 134/71 07/11/24 09:00 98.2 98.2 Total Intake and Output 07/10/24 07/10/24 07/11/24 15:00 23:00 07:00 Intake Total 1020 ml 800 ml Balance 1020 ml 800 ml medications Current Medications Medications Dose Ordered Sig/Kerrie Route Start Time Stop Time Status Last Admin Dose Admin Nitroglycerin 0.4 mg Q5MINP PRN SL 07/09/24 13:00 Morphine Sulfate 2 mg Q30M PRN IV 07/09/24 13:00 Furosemide 40 mg DAILY IV 07/10/24 10:00 07/11/24 09:47 40 MG Bupropion HCl 150 mg BID PO 07/09/24 22:00 07/11/24 09:48 150 MG Gabapentin 300 mg TID PO 07/09/24 14:00 07/11/24 06:17 300 MG Trazodone HCl 200 mg QHSP PO 07/09/24 22:00 07/10/24 20:54 200 MG Nicotine 1 patch DAILY TD 07/09/24 13:15 07/11/24 09:47 1 PATCH Albuterol 2.5 mg Q4HWA NEB 07/09/24 14:00 07/11/24 10:07 2.5 MG Ipratropium Raymond 0.5 mg Q4HWA NEB 07/09/24 14:00 07/11/24 10:07 0.5 MG Budesonide 0.5 mg BID NEB 07/09/24 22:00 07/11/24 06:46 0.5 MG Oxycodone HCl 5 mg Q4HP PRN PO 07/10/24 11:15 07/11/24 09:46 5 MG Ceftriaxone Sodium 50 ml @ 100 mls/hr DAILY@09 IV 07/11/24 09:00 07/11/24 09:48 100 MLS/HR Methylprednisolone Sodium Succinate 40 mg Q8HR IV 07/10/24 14:00 07/11/24 06:15 40 MG Examination: GENERAL:Abnormal, HEENT:Abnormal, LUNGS:Abnormal, CVS:Abnormal, ABDOMEN:Abnormal laboratory and microbiology Laboratory Tests 07/10/24 14:07 Test 07/10/24 14:07 Range/Units Serum Glucose 112 H 74-106 mg/dL Microbiology Date/Time Source Procedure Growth Status 07/09/24 11:25 Blood Blood Culture - Preliminary NO GROWTH AFTER 48 HOURS OF INCUBATION. Resulted Problem List/Assessment/Plan Problem List/Assessment/Plan brain surgery co2 retention obesity diastolic dysfunction prn diuretics watch co2 ,bipap/ cpap as per primary service cont bp control Plan discussed with: Patient Date of Service: Jul 11, 2024 Billing Provider: REBEKAH LOZANO MD Common Visit Codes: NOT BILLABLE REBEKAH LOZANO MD Jul 11, 2024 12:15
--- NOTE | 2024-07-11 14:35 | DVHPN2 ---
Subjective Patient reports that his breathing has improved. Reviewed: Care Plan, H&P, Labs, Medications, Previous Orders Changes from previous H/P or p: Changes General: Per HPI Eyes: No Pain, No Vision change, No Conjunctivae inflammation, No Eyelid inflammation, No Other, No Redness ENT: No Ear pain, No Ear discharge, No Nose pain, No Nose discharge, No Nose congestion, No Mouth pain, No Mouth swelling, No Throat pain, No Throat swelling, No Other Cardiovascular: No Chest Pain, No Palpitations, No Orthopnea, No Paroxysmal Noc. Dyspnea, No Edema, No Lt Headedness, No Other Respiratory: Cough, SOB with excertion Gastrointestinal: No Nausea, No Vomiting, No Abdominal Pain, No Diarrhea, No Constipation, No Melena, No Hematochezia, No Other Genitourinary: No Dysuria, No Frequency, No Incontinence, No Hematuria, No Retention, No Other Musculoskeletal: No other, No neck pain, No shoulder pain, No arm pain, No back pain, No hand pain, No leg pain, No foot pain Skin: No Rash, No Lesions, No Jaundice, No Bruising, No Other Objective Vitals Vital Signs Date Time Temp Pulse Resp B/P (MAP) Pulse Ox O2 Delivery O2 Flow Rate FiO2 07/11/24 13:58 64 18 95 07/11/24 13:51 Oxymizer 6 52 52 07/11/24 13:00 98.2 118/70 (86) 98.2 Intake/Output Intake and Output 07/11/24 07:00 Intake Total 1820 ml Balance 1820 ml Intake Oral 1820 ml # Voids 11 General Appearance: Alert, Oriented X3, Cooperative, mild distress HEENT: Atraumatic, PERRLA Neck: Carotid [place], Enlarged Thyroid Lungs: Other (Diminished breath sounds bilaterally. Oxymizer at 6 liters/minute.) Cardiovascular: Normal S1, Normal S2 Abdomen: Normal bowel sounds, Soft, No tenderness Genitourinary: No Apparent Abnormalities Musculoskeletal: Normal sensory function, Normal motor function Skin: Dry, Intact, Warm Psych/Mental Status: Mental status NL, Mood NL Medications Current Medications Medications Dose Ordered Sig/Kerrie Route Start Time Stop Time Status Last Admin Dose Admin Nitroglycerin 0.4 mg Q5MINP PRN SL 07/09/24 13:00 Morphine Sulfate 2 mg Q30M PRN IV 07/09/24 13:00 Furosemide 40 mg DAILY IV 07/10/24 10:00 07/11/24 09:47 40 MG Bupropion HCl 150 mg BID PO 07/09/24 22:00 07/11/24 09:48 150 MG Gabapentin 300 mg TID PO 07/09/24 14:00 07/11/24 14:27 300 MG Trazodone HCl 200 mg QHSP PO 07/09/24 22:00 07/10/24 20:54 200 MG Nicotine 1 patch DAILY TD 07/09/24 13:15 07/11/24 09:47 1 PATCH Albuterol 2.5 mg Q4HWA NEB 07/09/24 14:00 07/11/24 13:50 2.5 MG Ipratropium [place] 0.5 mg Q4HWA NEB 07/09/24 14:00 07/11/24 13:50 0.5 MG Budesonide 0.5 mg BID NEB 07/09/24 22:00 07/11/24 06:46 0.5 MG Oxycodone HCl 5 mg Q4HP PRN PO 07/10/24 11:15 07/11/24 14:27 5 MG Ceftriaxone Sodium 50 ml @ 100 mls/hr DAILY@09 IV 07/11/24 09:00 07/11/24 09:48 100 MLS/HR Methylprednisolone Sodium Succinate 40 mg Q8HR IV 07/10/24 14:00 07/11/24 14:27 40 MG Trazodone HCl 200 mg HS PO 07/11/24 22:00 UNV Sodium Chloride 1 spr QID EACHNOSTRI 07/11/24 18:00 UNV Laboratory Results Laboratory Tests 07/10/24 14:07 Microbiology Microbiology Date/Time Source Procedure Growth Status 07/09/24 11:25 Blood Blood Culture - Preliminary NO GROWTH AFTER 48 HOURS OF INCUBATION. Resulted Labs and/or images reviewed: Labs reviewed by me, Image(s) reviewed by me Assessment/Plan Assessment/Plan Impression: -acute hypoxic and hypercarbic respiratory failure -COPD with exacerbation -history of nicotine dependence -acute decompensated diastolic heart failure -obesity -history of seizure disorder Plan: -events: Oxymizer at 6 liters/minute. Saturation 90%. Respiratory status improved with decrease wheezing. Patient refusing ABG, stating he uses home O2. He reports that he just does not wear his home O2. Chest x-ray clear pulmonary vascular congestion. -CT scan of the chest -patient was states that he has been abstained from smoking tobacco for three weeks. -bronchodilators q.4 hours -decrease Solu-Medrol to 40 mg IV b.i.d.. -Continue IV diuresis -add inhaled corticosteroids, budesonide 0.5 mg b.i.d. -physical therapy consultation -repeat labs and chest x-ray in a.m. Total time spent with patient discussing and formulating plan of care: 35 minutes. This medical document was created using an electronic medical record system with [employer] dictation system. Although this document has been carefully reviewed, there may still be some phonetic and typographical errors. These areas are purely typographical due to imperfections of the software programs, and do not reflect any compromise in the patient's medical care. Plan discussed with: Patient, Other (RN) My Orders Orders - KTAHRYN CHAMORRO NP Procedure Category Date Status Time Basic Metabolic Panel LAB 07/12/24 Verified 04:00 Complete Blood Count LAB 07/12/24 Verified 04:00 Abg W/ Co-Ox RT 07/11/24 Logged 13:32 Hi-Resolution [address] CT 07/11/24 Logged 13:33 Trazodone Hcl PHA 07/11/24 Logged ([place]) 22:00 Sal[place] ([place] Nasal PHA 07/11/24 Logged [place]) 18:00 Date of Service: Jul 11, 2024 Billing Provider: KATHRYN CHAMORRO NP Common Visit Codes: [id number] INP/OBS CARE(HIGH) KATHRYN CHAMORRO NP Jul 11, 2024 14:35
--- NOTE | 2024-07-11 15:26 | DVH ---
CT Chest without intravenous contrast INDICATION: interstitial lung disease TECHNIQUE: Multidetector spiral CT of the chest was performed from the lung apices to the upper abdom en. Axial, coronal and sagittal multiplanar reformats were performed. High-resolution CT protocol was utilized. Radiation Dose : 1. Chest: CTDI volume is 49.66 mGy. Dose-length product is 2385.37 mGy*cm The dose indicators for CT are the volume Computed Tomography (CT) Dose Index (CTDIvol) and the Dose Length Product (DLP), and are measured in units of mGy and mGy-cm, respectively. These indicators are not patient dose, but values generated from the CT scanner acquisition factors. The report includes radiation exposure data for exposures received during this examination. Comparison: CT CHEST WITHOUT CONTRAST on DOS: 07/08/23 Findings: Lower neck: Normal thyroid. Lungs: Multiple bilateral diffuse punctate subcentimeter pulmonary nodules measuring up to 0.3 cm in the left lower lobe. Diffuse peripheral tree-in-bud nodularity is present. Heart/Vascular Structures: Cardiomegaly. Coronary artery calcifications. Vascular calcifications of t he aorta. Lymph Nodes: No adenopathy Pleura: No pleural effusion or significant pneumothorax. Musculoskeletal: No acute osseous abnormality. Multilevel degenerative changes of the spine. Soft tissues: Normal. Upper abdomen: Limited portions of the upper abdomen are unremarkable. IMPRESSION: Findings are not significantly changed since CT chest dated 07/08/2023 and may represent persisting a typical infectious or inflammatory process. Radiation optimization: All CT scans at this facility use at least one of these dose optimization brady hniques: automated exposure control mA and/or kV adjustment per patient size (includes targeted exam s where dose is matched to clinical indication) or iterative reconstruction.
[2024-07-11] MEDS: SALINE 0.65 % NASAL SPRAY 45ML BOTTLE EACHNOSTRI SCH (18:00)
[2024-07-11] MEDS: methylPREDNISolone SOD SUCC 40 MG/ML VL IV SCH (21:54)
[2024-07-11] MEDS: traZODone HCL 50 MG TAB PO SCH (21:55)
[2024-07-12] VITALS (16 sets, daily range): BP systolic 117–143; BP diastolic 68–86; PULSE 46–80; RESP 12–20; TEMP 97.6–98.6; O2SAT 90–98
[2024-07-12 07:04] LABS: Potassium 5.1 mmol/L (3.5-5.1); Sodium 139 mmol/L (136-145)
[2024-07-12 07:05] LABS: Anion Gap 4 (5-15); Calcium 9.9 mg/dL (8.7-10.4)
[2024-07-12 07:10] LABS: BUN/Creatinine Ratio 22.1 (10.0-20.0)
[2024-07-12 07:12] LABS: Blood Urea Nitrogen 23 mg/dL (9-23); Chloride 95 mmol/L (98-107); Glucose 134 mg/dL (74-106)
[2024-07-12 07:13] LABS: Basophils # (auto) 0 10 ^3/uL (0-0.2); Basophils % (auto) 0.1 % (0.0-2.0); Eosinophils # (auto) 0 10 ^3/uL (0-0.8); Hematocrit 45.7 % (41.0-53.0); Hemoglobin 15.3 g/dL (13.5-17.5); Lymphocytes # (auto) 0.9 10 ^3/uL (0.4-5.4); Lymphocytes % (auto) 9.7 % (10.0-50.0); Mean Corpuscular Hemoglobin 32.4 pg (28.0-32.0); Mean Corpuscular Hgb Conc. 33.5 g/dL (32.0-36.0); Mean Corpuscular Volume 96.8 fL (80.0-100.0); Monocytes # (auto) 0.5 10 ^3/uL (0-1.3); Monocytes % (auto) 4.7 % (0.0-12.0); Neutrophils # (auto) 8.4 10 ^3/uL (1.6-8.6); Neutrophils % (auto) 85.5 % (37.0-80.0); Nucleated Red Blood Cells % 0.1 %; Platelet Count (auto) 239 10^3/uL (140-450); Red Blood Cells 4.72 10^6/uL (4.5-5.90); Red Cell Distribution Width 15.7 % (11.8-14.3); White Blood Cell 9.8 10^3/uL (4.4-10.8)
[2024-07-12 07:14] LABS: Carbon Dioxide 40 mmol/L (20-31)
[2024-07-12] MEDS ORDERED: PRED20TA2 PO (11:00)
[2024-07-12] MEDS ORDERED: BUDE1AER4 IN (11:00)
[2024-07-12] MEDS ORDERED: DOXY100C79 PO (11:00)
--- NOTE | 2024-07-12 11:04 | DVHDS2 ---
Discharge Summary Date of Admission Jul 09, 2024 at 12:55 Date of Discharge: Jul 12, 2024 Admitting Diagnosis Acute on chronic hypoxic respiratory failure Labs/Diagnostic Data: Laboratory Results Test 07/12/24 06:21 07/09/24 18:29 07/09/24 14:36 07/09/24 13:00 White Blood Count 9.8 10^3/uL (4.4-10.8) Red Blood Count 4.72 10^6/uL (4.5-5.90) Hemoglobin 15.3 g/dL (13.5-17.5) Hematocrit 45.7 % (41.0-53.0) Mean Corpuscular Volume 96.8 fL (80.0-100.0) Mean Corpuscular Hemoglobin 32.4 pg (28.0-32.0) Mean Corpuscular Hemoglobin Concent 33.5 g/dL (32.0-36.0) Red Cell Distribution Width 15.7 % (11.8-14.3) Platelet Count 239 10^3/uL (140-450) Mean Platelet Volume 7.5 fL (6.9-10.8) Neutrophils (%) (Auto) 85.5 % (37.0-80.0) Lymphocytes (%) (Auto) 9.7 % (10.0-50.0) Monocytes (%) (Auto) 4.7 % (0.0-12.0) Eosinophils (%) (Auto) 0.0 % (0.0-7.0) Basophils (%) (Auto) 0.1 % (0.0-2.0) Neutrophils # (Auto) 8.4 10 ^3/uL (1.6-8.6) Lymphocytes # (Auto) 0.9 10 ^3/uL (0.4-5.4) Monocytes # (Auto) 0.5 10 ^3/uL (0-1.3) Eosinophils # (Auto) 0 10 ^3/uL (0-0.8) Basophils # (Auto) 0 10 ^3/uL (0-0.2) Nucleated Red Blood Cells 0.1 % Sodium Level 139 mmol/L (136-145) Potassium Level 5.1 mmol/L (3.5-5.1) Chloride Level 95 mmol/L (98-107) Carbon Dioxide Level 40 mmol/L (20-31) Anion Gap 4 (5-15) Blood Urea Nitrogen 23 mg/dL (9-23) Creatinine 1.04 mg/dL (0.700-1.30) Glomerular Filtration Rate Calc 80 mL/min (>90) BUN/Creatinine Ratio 22.1 (10.0-20.0) Serum Glucose 134 mg/dL (74-106) Calcium Level 9.9 mg/dL (8.7-10.4) Influenza Type A Antigen Negative (Negative) Influenza Type B Antigen Negative (Negative) SARS-CoV-2 Antigen (Rapid) Negative (NEGATIVE) Troponin I High Sensitivity 71 ng/L (</=54) Blood Gas Specimen Type Arterial Blood Gas Sample Site Right brachial Blood Gas Patient Temperature 37.0 Arterial Blood Date Drawn [id number] Arterial Blood pH 7.246 (7.350-7.450) Arterial Blood Partial Pressure CO2 71.0 mmHg (35.0-48.0) Arterial Blood Partial Pressure O2 390.0 mmHg (83.0-108.0) Arterial Blood HCO3 30.2 mmol/L (21.0-28.0) Arterial Blood Oxygen Saturation 99.9 % (94.0-98.0) Arterial Blood Base Excess 0.3 mmol/L (-2.0-3.0) Arterial Blood Oxyhemoglobin 97.9 % (94.0-98.0) Arterial Blood Carboxyhemoglobin 1.3 % (0.5-1.5) Arterial Blood Methemoglobin 0.7 % (0.0-1.5) Lb Test N/a Blood Gas Total Hemoglobin 17.00 g/dL (13.5-17.5) Blood Gas Liter Flow 15.00 Blood Gas Modality Mask - nrb FiO2 % 100.0 Blood Gas Critical Value Read Back Yes Blood Gas Notified Whom rose mary Whiteside md Blood Gas Notified Time [id number] Blood Gas Notified By Adilene vega senior compensation consultant Test 07/09/24 11:25 D-Dimer, Quantitative 1.16 mg/L FEU (0.0-0.49) Lactic Acid Level 1.2 mmol/L (0.4-2.0) B-Type Natriuretic Peptide 244.24 pg/mL (0-100) Other Laboratory Tests 07/12/24 06:21 Brief Hx & Hospital Course: History of Present Illness The patient was a 63-year-old male transport to the emergency room by EMS with reports of shortness of breath. Patient was had worsening shortness of breath with a past four days, with it exacerbated to the point where he called 911. Patient was found to be severely hypoxic at home. Patient was treated with bronchodilators, O2 supplementation, IV steroids with the patient having persistent dyspnea. ABG was performed which revealed hypercarbic and hypoxic respiratory failure for which the patient was placed on BiPAP. At the time of assessment, the patient was states that he was not getting enough support from the BiPAP and took it off. Patient is now on 6 L via simple mask. Patient reports a significant history of recent back surgery, history of craniectomy for his seizure disorder, hypertension, and CHF. Patient was states that he stopped smoking tobacco cigarettes three weeks ago, but states that he was smoked cigarettes for over 30 years. Course of hospitalization: Patient was started on antibiotic therapy, O2 supplementation, bronchodilators, IV steroids. Patient reports that he has home O2 and uses it at his discretion. Patient was given adequate IV diuresis. Chest x-ray improved. Patient had CT scan of the chest once his respiratory status improved. Physical therapy consultation was obtained with the patient able to ambulate with a walker and oxygen therapy. Patient was respiratory status improved dramatically. Patient will be discharged home with Symbicort, albuterol rescue inhaler, antibiotic therapy with doxycycline, and a tapering prednisone dose. Patient was instructed to follow up with his PCP in 1-2 weeks. All questions answered. Physical examination General: Alert and Oriented x3. No acute distress. Well-nourished. Obese Eyes: EOMI. Anicteric. HENT: Moist mucous membranes. Lungs: Clear to auscultation bilaterally. No accessory muscle use. Cardiovascular: Regular rate and rhythm. No murmur. No JVD. Abdomen: Soft, non-tender and non-distended. No palpable masses. Extremities: No edema. Non-tender. Skin: No rashes or lesions. Warm. Neurologic: No focal neurological deficits. CN II-XII grossly intact, but not individually tested. Psychiatric: Cooperative. Appropriate mood and affect. Total time spent with patient discussing and formulating plan of care: 35 minutes. This medical document was created using an electronic medical record system with [employer] dictation system. Although this document has been carefully reviewed, there may still be some phonetic and typographical errors. These areas are purely typographical due to imperfections of the software programs, and do not reflect any compromise in the patient's medical care. Consults/Reason for consult Cardiology: Decompensated heart failure Condition at Discharge: Guarded Final Diagnosis/Problems List Acute on Chronic hypoxic and hypercarbic respiratory failure Secondary diagnosis: -COPD with exacerbation -history of nicotine dependence -acute decompensated diastolic heart failure -obesity -history of seizure disorder Discharge Disposition: Home Discharge Instruct/Medications Diet: Consistent carbohydrate, Cardiac 2g Na,low cholest Activity: No Restrictions, As Tolerated Follow Up/Referral: PCP in 1-2 weeks Medications: Prednisone 40 mg p.o. daily x7 days then prednisone 20 mg p.o. daily x7 days. Doxycycline 100 mg p.o. twice a day x7 days Continue all previous home medications per medication reconciliation form 36 Discharge Statement: "Patient was advised to return to the ER or call 911 if any headaches, dizziness, shortness of breath, chest pain, abdominal pain, bleeding, fevers, or worsening of medical condition. Patient was counseled about treatment plan, medications, possible side effects, patientverbalized understanding. All questions were answered to the best of my ability. This discharge took greater then 30 minutes in planning, reviewing documentation, counseling the patient, and discussing with other team members." ASSESSMENT ASSESSMENT Assessment Acute on Chronic hypoxic and hypercarbic respiratory failure Date of Service: Jul 12, 2024 Billing Provider: KATHRYN CHAMORRO NP Common Visit Codes: [id number]-KCZ/[id number] DISCH DAY >30min KATHRYN CHAMORRO NP Jul 12, 2024 11:04
[2024-07-12] MEDS ORDERED: ALBUAER3 IN (11:05)
--- NOTE | 2024-07-12 13:27 | CODING ---
Date of Service: Jul 12, 2024 Billing Provider: KATHRYN CHAMORRO NP Common Visit Codes: [id number]-LXC/OBS SAME DATE (MOD) KATHRYN CHAMORRO NP Jul 12, 2024 13:27
[2024-07-12] MEDS: HYDROcodone-ACET 5/325MG TAB PO PRN (21:36)
[2024-07-13] VITALS (13 sets, daily range): BP systolic 116–142; BP diastolic 67–81; PULSE 55–72; RESP 16–20; TEMP 97.7–98.8; O2SAT 90–99
--- NOTE | 2024-07-13 12:11 | DVHPN2 ---
Subjective Patient continues to have severe dyspnea with ambulation. Reviewed: Care Plan, H&P, Labs, Medications, Previous Orders Changes from previous H/P or p: Changes General: Per HPI Eyes: No Pain, No Vision change, No Conjunctivae inflammation, No Eyelid inflammation, No Other, No Redness ENT: No Ear pain, No Ear discharge, No Nose pain, No Nose discharge, No Nose congestion, No Mouth pain, No Mouth swelling, No Throat pain, No Throat swelling, No Other Cardiovascular: No Chest Pain, No Palpitations, No Orthopnea, No Paroxysmal Noc. Dyspnea, No Edema, No Lt Headedness, No Other Respiratory: Cough, SOB with excertion Gastrointestinal: No Nausea, No Vomiting, No Abdominal Pain, No Diarrhea, No Constipation, No Melena, No Hematochezia, No Other Genitourinary: No Dysuria, No Frequency, No Incontinence, No Hematuria, No Retention, No Other Musculoskeletal: No other, No neck pain, No shoulder pain, No arm pain, No back pain, No hand pain, No leg pain, No foot pain Skin: No Rash, No Lesions, No Jaundice, No Bruising, No Other Objective Vitals Vital Signs Date Time Temp Pulse Resp B/P (MAP) Pulse Ox O2 Delivery O2 Flow Rate FiO2 07/13/24 10:00 92 Nasal Cannula* 2 28 07/13/24 09:28 116/67 07/13/24 09:00 97.8 57 16 97.8 Intake/Output Intake and Output 07/13/24 07:00 Intake Total 1400 ml Output Total 500 ml Balance 900 ml Intake Oral 1400 ml Output Urine Total 500 ml # Voids 6 General Appearance: Alert, Oriented X3, Cooperative, mild distress HEENT: Atraumatic, PERRLA Neck: Carotid [place]its [place], Enlarged Thyroid Lungs: Other (Diminished breath sounds bilaterally. Oxymizer at 6 liters/minute.) Cardiovascular: Normal S1, Normal S2 Abdomen: Normal bowel sounds, Soft, No tenderness Genitourinary: No Apparent Abnormalities Musculoskeletal: Normal sensory function, Normal motor function Skin: Dry, Intact, Warm Psych/Mental Status: Mental status NL, Mood NL Medications Current Medications Medications Dose Ordered Sig/Kerrie Route Start Time Stop Time Status Last Admin Dose Admin Nitroglycerin 0.4 mg Q5MINP PRN SL 07/09/24 13:00 Morphine Sulfate 2 mg Q30M PRN IV 07/09/24 13:00 Furosemide 40 mg DAILY IV 07/10/24 10:00 07/13/24 09:28 40 MG Bupropion HCl 150 mg BID PO 07/09/24 22:00 07/13/24 09:29 150 MG Gabapentin 300 mg TID PO 07/09/24 14:00 07/13/24 05:15 300 MG Nicotine 1 patch DAILY TD 07/09/24 13:15 07/13/24 09:31 1 PATCH Albuterol 2.5 mg Q4HWA NEB 07/09/24 14:00 07/13/24 05:58 2.5 MG Ipratropium [place] 0.5 mg Q4HWA NEB 07/09/24 14:00 07/13/24 05:58 0.5 MG Budesonide 0.5 mg BID NEB 07/09/24 22:00 07/13/24 05:58 0.5 MG Oxycodone HCl 5 mg Q4HP PRN PO 07/10/24 11:15 07/13/24 09:29 5 MG Ceftriaxone Sodium 50 ml @ 100 mls/hr DAILY@09 IV 07/11/24 09:00 07/13/24 09:29 100 MLS/HR Trazodone HCl 200 mg HS PO 07/11/24 22:00 07/12/24 21:37 200 MG Sodium Chloride 1 spr QID EACHNOSTRI 07/11/24 18:00 07/13/24 05:15 1 SPR Methylprednisolone Sodium Succinate 40 mg BID IV 07/11/24 22:00 07/13/24 09:28 40 MG Acetaminophen/ Hydrocodone Bitart 1 tab Q6HPRN PRN PO 07/12/24 20:30 07/12/24 21:36 1 TAB Guaifenesin/ Dextromethorphan 10 ml Q4HP PRN PO 07/13/24 11:45 Laboratory Results Laboratory Tests 07/12/24 06:21 Microbiology Microbiology Date/Time Source Procedure Growth Status 07/09/24 11:25 Blood Blood Culture - Preliminary NO GROWTH AFTER 72 HOURS OF INCUBATION. Resulted Labs and/or images reviewed: Labs reviewed by me, Image(s) reviewed by me Assessment/Plan Assessment/Plan Impression: -acute hypoxic and hypercarbic respiratory failure -COPD with exacerbation -history of nicotine dependence -acute decompensated diastolic heart failure -obesity -history of seizure disorder Plan: -events: Patient continues to have severe dyspnea with ambulation. Nasal cannula 4 L now.-PT consultation -antitussives with guaifenesin -CT scan of the chest: review -bronchodilators q.4 hours -Solu-Medrol to 40 mg IV b.i.d.. -Continue IV diuresis -add inhaled corticosteroids, budesonide 0.5 mg b.i.d. -physical therapy consultation -repeat labs and chest x-ray in a.m. Total time spent with patient discussing and formulating plan of care: 35 minutes. This medical document was created using an electronic medical record system with [employer] dictation system. Although this document has been carefully reviewed, there may still be some phonetic and typographical errors. These areas are purely typographical due to imperfections of the software programs, and do not reflect any compromise in the patient's medical care. Plan discussed with: Patient, Other (RN) My Orders Orders - KATHRYN CHAMORRO NP Procedure Category Date Status Time Guaifenesin-Dextromet PHA 07/13/24 In Process Liquid (Robitussin 11:45 Date of Service: Jul 13, 2024 Billing Provider: KATHRYN CHAMORRO NP Common Visit Codes: [id number] INP/OBS CARE(HIGH) KATHRYN CHAMORRO NP Jul 13, 2024 12:11
[2024-07-13] MEDS: guaiFENesin-DM 100/10mg/5ml SYR PO PRN (12:16)
[2024-07-13] MEDS: MORPHINE SULFATE INJ 2 MG/ml SYRG IV PRN (15:37)
[2024-07-14] VITALS (7 sets, daily range): BP systolic 126–129; BP diastolic 68–85; PULSE 52–72; RESP 17–19; TEMP 97.5–98.1; O2SAT 89–98
--- NOTE | 2024-07-14 11:40 | ECG ---
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
--- NOTE | 2024-07-14 12:36 | DVHPN2 ---
Subjective Respiratory status has improved. Reviewed: Care Plan, H&P, Labs, Medications, Previous Orders Changes from previous H/P or p: Changes General: Per HPI Eyes: No Pain, No Vision change, No Conjunctivae inflammation, No Eyelid inflammation, No Other, No Redness ENT: No Ear pain, No Ear discharge, No Nose pain, No Nose discharge, No Nose congestion, No Mouth pain, No Mouth swelling, No Throat pain, No Throat swelling, No Other Cardiovascular: No Chest Pain, No Palpitations, No Orthopnea, No Paroxysmal Noc. Dyspnea, No Edema, No Lt Headedness, No Other Respiratory: Cough, SOB with excertion Gastrointestinal: No Nausea, No Vomiting, No Abdominal Pain, No Diarrhea, No Constipation, No Melena, No Hematochezia, No Other Genitourinary: No Dysuria, No Frequency, No Incontinence, No Hematuria, No Retention, No Other Musculoskeletal: No other, No neck pain, No shoulder pain, No arm pain, No back pain, No hand pain, No leg pain, No foot pain Skin: No Rash, No Lesions, No Jaundice, No Bruising, No Other Objective Vitals Vital Signs Date Time Temp Pulse Resp B/P (MAP) Pulse Ox O2 Delivery O2 Flow Rate FiO2 07/14/24 10:00 93 Nasal Cannula 4.0 07/14/24 09:34 128/68 07/14/24 08:35 98.1 52 17 98.1 07/14/24 08:00 N/A Intake/Output Intake and Output 07/14/24 07:00 Intake Total 1934 ml Balance 1934 ml Intake Oral 1884 ml IV Total 50 ml # Voids 16 # Bowel Movements 2 General Appearance: Alert, Oriented X3, Cooperative, mild distress HEENT: Atraumatic, PERRLA Neck: Carotid Bruits Lyman, Enlarged Thyroid Lungs: Other (Diminished breath sounds bilaterally. Oxymizer at 6 liters/minute.) Cardiovascular: Normal S1, Normal S2 Abdomen: Normal bowel sounds, Soft, No tenderness Genitourinary: No Apparent Abnormalities Musculoskeletal: Normal sensory function, Normal motor function Skin: Dry, Intact, Warm Psych/Mental Status: Mental status NL, Mood NL Medications Current Medications Medications Dose Ordered Sig/Kerrie Route Start Time Stop Time Status Last Admin Dose Admin Nitroglycerin 0.4 mg Q5MINP PRN SL 07/09/24 13:00 Morphine Sulfate 2 mg Q30M PRN IV 07/09/24 13:00 07/13/24 15:37 2 MG Furosemide 40 mg DAILY IV 07/10/24 10:00 07/14/24 09:34 40 MG Bupropion HCl 150 mg BID PO 07/09/24 22:00 07/14/24 09:33 150 MG Gabapentin 300 mg TID PO 07/09/24 14:00 07/14/24 06:21 300 MG Nicotine 1 patch DAILY TD 07/09/24 13:15 07/14/24 09:35 1 PATCH Albuterol 2.5 mg Q4HWA NEB 07/09/24 14:00 07/13/24 19:01 2.5 MG Ipratropium Denhoff 0.5 mg Q4HWA NEB 07/09/24 14:00 07/13/24 19:01 0.5 MG Budesonide 0.5 mg BID NEB 07/09/24 22:00 07/13/24 19:01 0.5 MG Oxycodone HCl 5 mg Q4HP PRN PO 07/10/24 11:15 07/14/24 09:35 5 MG Ceftriaxone Sodium 50 ml @ 100 mls/hr DAILY@09 IV 07/11/24 09:00 07/14/24 09:33 100 MLS/HR Trazodone HCl 200 mg HS PO 07/11/24 22:00 07/13/24 21:02 200 MG Sodium Chloride 1 spr QID EACHNOSTRI 07/11/24 18:00 07/14/24 09:35 1 SPR Methylprednisolone Sodium Succinate 40 mg BID IV 07/11/24 22:00 07/14/24 09:33 40 MG Acetaminophen/ Hydrocodone Bitart 1 tab Q6HPRN PRN PO 07/12/24 20:30 07/14/24 06:33 1 TAB Guaifenesin/ Dextromethorphan 10 ml Q4HP PRN PO 07/13/24 11:45 07/13/24 12:16 10 ML Laboratory Results Laboratory Tests 07/12/24 06:21 Microbiology Microbiology Date/Time Source Procedure Growth Status 07/09/24 11:25 Blood Blood Culture - Final NO GROWTH AFTER 5 DAYS OF INCUBATION. Complete Labs and/or images reviewed: Labs reviewed by me, Image(s) reviewed by me Assessment/Plan Assessment/Plan Impression: -acute hypoxic and hypercarbic respiratory failure -COPD with exacerbation -history of nicotine dependence -acute decompensated diastolic heart failure -obesity -history of seizure disorder Plan: -events: Patient was states that his respiratory status has improved. The patient was discharged two days ago, with his respiratory status slightly declining. Patient will be discharged home with previous prescription and discharge orders. -antitussives with guaifenesin -CT scan of the chest: review -bronchodilators q.4 hours -Solu-Medrol to 40 mg IV b.i.d.. -Continue IV diuresis -add inhaled corticosteroids, budesonide 0.5 mg b.i.d. -physical therapy consultation -repeat labs and chest x-ray in a.m. Total time spent with patient discussing and formulating plan of care: 35 minutes. This medical document was created using an electronic medical record system with [employer] dictation system. Although this document has been carefully reviewed, there may still be some phonetic and typographical errors. These areas are purely typographical due to imperfections of the software programs, and do not reflect any compromise in the patient's medical care. Plan discussed with: Patient, Other (RN) My Orders Orders - KATHRYN CHAMORRO NP Procedure Category Date Status Time Transfer Orders XFER 07/13/24 Transmitted 15:17 Discharge DISCHARGE 07/14/24 Transmitted 12:34 Date of Service: Jul 14, 2024 Billing Provider: KATHRYN CHAMORRO NP Common Visit Codes: [id number] INP/OBS CARE(HIGH) KATHRYN CHAMORRO NP Jul 14, 2024 12:36
== END 2024-07-14 13:40 | disposition home or self-care (01) | DRG 133 ==
LOC: EDBD 10:40 → EDUNIT# 10:40 → ER 10:40 → OVERFLOW 12:55 → TELE-WESTW 21:49 → WEST WING 07-11 16:13 → TELE-WESTW 07-14 01:11
PROVIDERS: ADMIT Nurse Practitioner Acute Care; ATTEND Nurse Practitioner Acute Care
PROC: 5A09357 Assistance with Respiratory Ventilation, Less than 24 Consecutive Hours, Continuous Positive Airway Pressure (ICD-10-PCS; principal; 2024-07-09)
DX: J96.21 Acute and chronic respiratory failure with hypoxia (principal); I50.33 Acute on chronic diastolic (congestive) heart failure; E87.29 Other acidosis; J18.9 Pneumonia, unspecified organism; I13.0 Hypertensive heart and chronic kidney disease with heart failure and stage 1 through stage 4 chronic kidney disease, or unspecified chronic kidney disease; J44.0 Chronic obstructive pulmonary disease with (acute) lower respiratory infection; J44.1 Chronic obstructive pulmonary disease with (acute) exacerbation; Z20.822 Contact with and (suspected) exposure to COVID-19; F17.210 Nicotine dependence, cigarettes, uncomplicated; G40.909 Epilepsy, unspecified, not intractable, without status epilepticus; N18.9 Chronic kidney disease, unspecified; E66.01 Morbid (severe) obesity due to excess calories; J96.22 Acute and chronic respiratory failure with hypercapnia; Z82.3 Family history of stroke; Z79.1 Long term (current) use of non-steroidal anti-inflammatories (NSAID); Z79.2 Long term (current) use of antibiotics; Z79.899 Other long term (current) drug therapy; Z68.38 Body mass index [BMI] 38.0-38.9, adult
CPT/HCPCS: 36415; 36600; 71045; 71250; 80048; 82805; 83605; 83880; 84484; 85025; 85379; 87040; 87426; 87804; 93005; 93306; 94640; 94644; 94660; 96365; 96366; 96367; 96375; 97163; 99291; G0378

== ENCOUNTER 2024-07-31 12:22 | Inpatient (IN) | payer MEDICAID, MEDICARE ==
[~2024-07-31] VITALS: Ht 177.8 cm; Wt 133.5 kg
[~2024-07-31 12:22] MED LIST changes: -ACET-1304 PO; +ALBUAER3 IN; -ATOR-507 PO; -AZIT-74 PO; -AZIT500T PO; -BACL10TA PO; +BUDE1AER4 IN; -BUPR75TA96 PO; -CEPH-510 PO; -CHOL20007 PO; -DIPH-753 PO; -DIVA-93; -DOXY100C4 PO; +DOXY100C79 PO; -FLUT1SPR21; -FURO40TA4 PO; -GABA-1250 PO; -HYDR-4798 PO; -HYDR-4902 PO; -LIDO5DIS21 TOP; -LOSA-533 PO; -MELO15TA29 PO; -METH4PAK PO; -NAP500T PO; -NICO14DI29 TD; -TOPI100T29; -VARE1TAB32 PO
--- NOTE | 2024-07-31 12:31 | ED.PDOC ---
History of Present Illness HPI Comments 63 year old male brought in by EMS presents to the ED with a chief complaint of generalized weakness onset 1 week. Patient states he has been experiencing generalized weakness for the past week as well as frequent falls. Patient also states for the past 3 weeks, he noticed tremors. He was discharged from [facility] on 07/14/24. EMS states patient's O2 sat was low 80s, was placed on O2. PMHx COPD, CHF, CKF, HTN, seizures. Denies chest pain, headache, dizziness, nausea, vomiting, diarrhea. No other symptoms or modifying factors present at this time. Chief Complaint: General Weakness Time Seen by MD: 12:22 Primary Care Provider: UNKNOWN Reviewed Notes: Medications, Allergies Allergies: Coded Allergies: NO KNOWN ALLERGIES (Unverified , 06/13/19) Home Meds Active Scripts Albuterol Sulfate (VENTOLIN MDI) 90 Mcg Ih, 90 MCG IN Q4HP PRN for 30 Days, #1 % 1 Refill Prov:KATHRYN CHAMORRO SHAVING MACHINE OPERATOR 07/12/24 Doxycycline (Monohydrate) (Doxycycline) 100 Mg Cap, 100 MG PO BID for 10 Days, #2 CAP Prov:KATHRYN CHAMORRO SHAVING MACHINE OPERATOR 07/12/24 Prednisone (Prednisone) 20 Mg Tab, 20 MG PO DAILY for 14 Days, #21 MG Prednisone 40 mg p.o. daily x7 days then 20 mg p.o. daily x7 days Prov:KATHRYN CHAMORRO SHAVING MACHINE OPERATOR 07/12/24 Budesonide-Formoterol Fumarate (Budesonide/Formoterol Fum 160-4.5 Mcg/Act) 1 Aer Aer, 1 AER IN BID for 30 Days, #1 AER 1 Refill Prov:KATHRYN CHAMORRO SHAVING MACHINE OPERATOR 07/12/24 Prednisone (Prednisone) 20 Mg Tab, 60 MG PO DAILY, #21 TAB Prov:KADE MOISE 06/29/24 Gabapentin (Gabapentin) 600 Mg Tab, 1 TAB PO BID, #30 TAB Prov:KADE MOISE PA 06/29/24 Ibuprofen Micronized (Ibuprofen) 600 Mg Tab, 600 MG PO Q8HR PRN for 30 Days, #90 TAB 0 Refills Prov:TAYLOR MO 05/23/24 Reported Medications Primidone (MYSOLINE TABLET) 50 Mg Tb, 1 TAB PO BID for 30 Days, #60 TAKE 1 TABLET BY MOUTH AT BEDTIME FOR 7 DAYS, THEN TAKE 1 TABLET BY MOUTH TWICE A DAY 9AM AND 9PM THEREAFTER. 07/10/24 Morphine Sulfate (Morphine Sulfate) 15 Mg Tab, 1 TAB PO Q4HP PRN for PAIN SCALE 7 THRU 10 for 30 Days, #180 07/10/24 Trazodone Hcl (Trazodone Hcl) 100 Mg Tab, 3 TAB PO QHSP for 30 Days, #90 10/08/11 Information Source: Patient, Emergency Med Personnel Mode of Arrival: EMS Severity: Moderate Timing: Weeks Duration: Since onset Prehospital treatment: Oxygen Past Medical History PAST MEDICAL HISTORY: Arthritis, CHF, CKF, COPD, HTN, Seizures Surgical History: Denies all surgeries Family History Family History: Reviewed,noncontributory to illness Social History Smoker: Cigarettes Alcohol: Occasionally Drugs: Denies Drug Use Lives In: Home Constitutional: reports: weakness; denies: chills, diaphoresis, fatigue, fever, malaise, sweats, others EENTM: denies: blurred vision, double vision, ear bleeding, ear discharge, ear drainage, ear pain, ear ringing, eye pain, eye redness, hearing loss, mouth pain, mouth swelling, nasal discharge, nose bleeding, nose congestion, nose pain, photophobia, tearing, throat pain, throat swelling, voice changes, others Respiratory: denies: cough, hemoptysis, orthopnea, SOB at rest, shortness of breath, SOB with excertion, stridor, wheezing, others Cardiovascular: denies: chest pain, dizzy spells, diaphoresis, Dyspnea on exertion, edema, irregular heart beat, left arm pain, lightheadedness, palpitations, PND, syncope, others Gastrointestinal: denies: abdomen distended, abdominal pain, blood streaked bowels, constipated, diarrhea, dysphagia, difficulty swallowing, hematemesis, melena, nausea, poor appetite, poor fluid intake, rectal bleeding, rectal pain, vomiting, others Genitourinary: denies: burning, dysuria, flank pain, frequency, hematuria, incontinence, penile discharge, penile sore, pain, testicle pain, testicle swelling, urgency, others Neurological: reports: tremors, weakness; denies: dizziness, fainting, headache, left sided numbness, left sided weakness, numbness, paresthesia, pre- existing deficit, right sided numbness, right sided weakness, seizure, speech problems, tingling, others Musculoskeletal: denies: back pain, gout, joint pain, joint swelling, muscle pain, muscle stiffness, neck pain, others Integumetry: denies: bruises, change in color, change in hair/nails, dryness, laceration, lesions, lumps, rash, wounds, others Allergic/Immunocompromised: denies: Difficulty Healing, Frequent Infections, H cat, Itching, others Hematologic/Lymphatic: denies: anemia, blood clots, easy bleeding, easy bruising, swollen glands, others Endocrine: denies: excessive hunger, excessive sweating, excessive thirst, excessive urination, flushing, intolerance to cold, intolerance to heat, unexplained weight gain, unexplained weight loss, others Psychiatric: denies: anxiety, bipolar disorder, depression, hopeless, panic disorder, schizophrenia, sleepless, suicidal, others All Other Systems: Reviewed and Negative Physical Exam General Appearance: Moderate Distress, Normal HEENT: Normal ENT Inspection, Pharynx Normal, TMs Normal Neck: Full Range of Motion, Non-Tender, Normal, Normal Inspection Respiratory: Chest Non-Tender, Lungs Clear, No Accessory Muscle Use, No Respiratory Distress, Normal Breath Sounds Cardiovascular: No Edema, No JVD, No Murmur, No Gallop, Normal Peripheral Pulses, Regular Rate/Rhythm Breast Exam: Deferred Gastrointestinal: No Organomegaly, Non Tender, No Pulsatile Mass, Normal Bowel Sounds, Soft Genitalia: Deferred Pelvic: Deferred Rectal: Deferred Extremities: No calf tenderness, Normal capillary refill, Normal range of motion, Non-tender, Pedal edema Musculoskeletal : Apperance: Normal Neurologic: Alert, agent ticketing gate II-XII nml as Tested, No Motor Deficits, Normal Affect, Normal Mood, No Sensory Deficits Cerebellar Function: NOT DONE Reflexes: NOT DONE Skin: Dry, Normal Color, Warm Peripheral Pulses: 3+ Radial (R), 3+ Radial (L) Lymphatic: No Adenopathy Was a procedure done? Was a procedure done?: No Differential Dx Considerations may include: CHF Electrolyte imbalance X-Ray, Labs, Meds, VS Vital Signs Date Time Temp Pulse Resp B/P (MAP) Pulse Ox O2 Delivery O2 Flow Rate FiO2 07/31/24 16:24 61 19 114/50 (71) 96 07/31/24 12:59 59 18 93 Nasal Cannula* 2 28 07/31/24 12:56 59 18 93 Nasal Cannula 07/31/24 12:56 98.6 59 18 97/54 (68) 93 98.6 07/31/24 12:56 97/54 07/31/24 12:30 60 07/31/24 12:26 97.9 62 15 126/74 (91) 96 97.9 Lab Test 07/31/24 14:14 07/31/24 13:03 07/31/24 12:34 Range/Units Sodium Level 139 136-145 mmol/L Potassium Level 5.1 3.5-5.1 mmol/L Chloride Level 103 98-107 mmol/L Carbon Dioxide Level 34 H 20-31 mmol/L Anion Gap 2 L 5-15 Blood Urea Nitrogen 15 9-23 mg/dL Creatinine 0.94 0.700-1.30 mg/dL Glomerular Filtration Rate Calc 91 >90 mL/min BUN/Creatinine Ratio 16.0 10.0-20.0 Serum Glucose 95 74-106 mg/dL Calcium Level 9.4 8.7-10.4 mg/dL Troponin I High Sensitivity 4 4 </=54 ng/L White Blood Count 10.3 4.4-10.8 10^3/uL Red Blood Count 4.34 L 4.5-5.90 10^6/uL Hemoglobin 13.7 13.5-17.5 g/dL Hematocrit 42.5 41.0-53.0 % Mean Corpuscular Volume 97.7 80.0-100.0 fL Mean Corpuscular Hemoglobin 31.6 28.0-32.0 pg Mean Corpuscular Hemoglobin Concent 32.3 32.0-36.0 g/dL Red Cell Distribution Width 16.0 H 11.8-14.3 % Platelet Count 145 140-450 10^3/uL Mean Platelet Volume 7.4 6.9-10.8 fL Neutrophils (%) (Auto) 77.9 37.0-80.0 % Lymphocytes (%) (Auto) 13.2 10.0-50.0 % Monocytes (%) (Auto) 6.2 0.0-12.0 % Eosinophils (%) (Auto) 1.9 0.0-7.0 % Basophils (%) (Auto) 0.8 0.0-2.0 % Neutrophils # (Auto) 8.0 1.6-8.6 10 ^3/uL Lymphocytes # (Auto) 1.4 0.4-5.4 10 ^3/uL Monocytes # (Auto) 0.6 0-1.3 10 ^3/uL Eosinophils # (Auto) 0.2 0-0.8 10 ^3/uL Basophils # (Auto) 0.1 0-0.2 10 ^3/uL Nucleated Red Blood Cells 0.0 % B-Type Natriuretic Peptide 97.10 0-100 pg/mL POC Glucose 94 70-106 mg/dl Patient alert. Complaining of shaking. Had to be placed on oxygen because his saturation was low in the field. Heart rate within normal limits. Blood pressure within normal limits. Reviewed his previous visit. On examination he does have bilateral lower extremity swelling. Was given Lasix. Explained to the patient. Continue cardiac monitoring. EKG reviewed does not show any acute changes. She does have metabolic alkalosis. WBC within normal limits. Cardiac marker within normal limits. Blood pressure fluctuates. Continue to be on oxygen. Time of 1ST Reevaluation: 12:52 Reevaluation 1ST: Unchanged Patient Education/Counseling: Diagnosis, Treatment, Prognosis Family Education/Counseling: No Family Present Additional Information The following tests were ordered, and results were reviewed by me: TROP-x3, CBC, BMP, XY CHEST, UA, BMP, EKG Additional Information was gathered from interviewing the following independent historians: EMS I reviewed and agreed with the following test results read by other providers: XY CHEST I discussed treatment and results with medical personnel and: patient Comprehensive systems review obtained and negative except for what is stated in the HPI. Departure 1 Departure Time of Disposition: 12:34 Impression: Primary Impression: CHF exacerbation Qualified Codes: I50.43 - Acute on chronic combined systolic (congestive) and diastolic (congestive) heart failure Additional Impressions: Anxiety Metabolic alkalosis Disposition: ADMITTED INPATIENT Admit to: Med Surg Condition: Guarded Critical Care Note Critical Care Time?: Yes (90 min-critical care time only) Critical care comment: Placed on oxygen Stability Stability form required: No Heart Score Heart Score: Heart Score Response (Comments) Value History Slightly Suspicious 0 EKG Normal 0 Age 45-64 1 Risk Factors >3 or Hx ASHD 2 Troponin Normal limit 0 Total 3 I personally scribed for BERNADETTE ESPITIA MD ([email or web address]) on 07/31/24 at 12:31. Electronically submitted by Della Salgado ([email or web address]). I personally scribed for BERNADETTE ESPITIA MD ([email or web address]) on 07/31/24 at 14:22. Electronically submitted by Della Salgado ([email or web address]). BERNADETTE ESPITIA MD Jul 31, 2024 12:31
--- NOTE | 2024-07-31 12:39 | ECG ---
[facility] Test Date: 2024-07-31 Test Time: 12:30:33 Pat Name: NATHALIE SIERRA Department: ED Room: 0285T Gender: M Calculation Reviewer: MACO : 1960 Requested By: BERNADETTE ESPITIA Order Number: [id number] Reading MD: Ezio Pope Measurements Intervals Elizabeth Rate: 60 P: 64 OH: 190 QRS: 63 QRSD: 81 T: 33 QT: 387 QTc: 387 Interpretive Statements Sinus rhythm Low voltage, precordial leads Electronically Signed On 08-03-2024 13:22:28 PDT by Ezio Pope Please click the below link to view image of tracing.
[2024-07-31] MEDS: FUROSEMIDE 40 MG/4 ML VIAL IV ONE (12:56)
[2024-07-31 12:59] VITALS: PULSE 59; RESP 18; O2SAT 93
[2024-07-31 13:21] LABS: Basophils # (auto) 0.1 10 ^3/uL (0-0.2); Basophils % (auto) 0.8 % (0.0-2.0); Eosinophils # (auto) 0.2 10 ^3/uL (0-0.8); Eosinophils % (auto) 1.9 % (0.0-7.0); Hematocrit 42.5 % (41.0-53.0); Hemoglobin 13.7 g/dL (13.5-17.5); Lymphocytes # (auto) 1.4 10 ^3/uL (0.4-5.4); Lymphocytes % (auto) 13.2 % (10.0-50.0); Mean Corpuscular Hemoglobin 31.6 pg (28.0-32.0); Mean Corpuscular Hgb Conc. 32.3 g/dL (32.0-36.0); Mean Corpuscular Volume 97.7 fL (80.0-100.0); Monocytes # (auto) 0.6 10 ^3/uL (0-1.3); Monocytes % (auto) 6.2 % (0.0-12.0); Neutrophils % (auto) 77.9 % (37.0-80.0); Platelet Count (auto) 145 10^3/uL (140-450); Red Blood Cells 4.34 10^6/uL (4.5-5.90); White Blood Cell 10.3 10^3/uL (4.4-10.8)
[2024-07-31 14:45] LABS: Anion Gap 2 (5-15); Chloride 103 mmol/L (98-107); Potassium 5.1 mmol/L (3.5-5.1); Sodium 139 mmol/L (136-145)
[2024-07-31 14:46] LABS: Calcium 9.4 mg/dL (8.7-10.4)
[2024-07-31 14:51] LABS: Blood Urea Nitrogen 15 mg/dL (9-23); Glucose 95 mg/dL (74-106)
[2024-07-31 14:56] LABS: Carbon Dioxide 34 mmol/L (20-31)
--- NOTE | 2024-07-31 15:05 | DVH ---
CHEST RADIOGRAPH Indication: sob Technique: Single frontal view of the chest was obtained COMPARISON: XY CHEST PORTABLE on DOS: 07/11/24, XY CHEST PORTABLE on DOS: 07/10/24, XY CHEST PORTABLE on DOS: 07/09/24, CHEST PORTABLE on DOS: 02/19/20 FINDINGS: Lines and Tubes: None Lungs: Bibasilar subsegmental atelectasis. Pleura: No effusion. No pneumothorax. Cardiomediastinal contours: Unremarkable Bones: Unremarkable IMPRESSION: Bibasilar subsegmental atelectasis.
[2024-07-31 18:37] LABS: Urine Bacteria None Seen /hpf (None Seen)
[2024-07-31 18:51] LABS: Urine Blood Negative /uL (Negative); Urine Clarity Clear (Clear); Urine Color Light-Yellow (Yellow); Urine Protein, UAD Negative (Negative); Urine Specific Gravity 1.012 (1.001-1.035); Urine Squamous Epithelial Cell None Seen /hpf (<5); Urine Urobilinogen Normal (Negative); Urine WBC < 1 /HPF (0-3)
[2024-07-31 19:36] VITALS: PULSE 100; RESP 20; O2SAT 95
[2024-07-31] MEDS ORDERED: ONDANSETRON HCL 4 MG/2 ML VIAL IV PRN (19:45)
[2024-07-31] MEDS ORDERED: DOCUSATE SOD 100 MG CAP PO PRN (19:45)
[2024-07-31] MEDS ORDERED: ALBUTEROL SULF 2.5 MG/0.5ML(0.5%) NEB SOLN NEB PRN (19:45)
[2024-07-31] MEDS ORDERED: ACETAMINOPHEN 325 MG TAB PO PRN (19:45)
[2024-07-31 20:17] VITALS: BP 159/84; PULSE 80; RESP 18; O2SAT 96
--- NOTE | 2024-07-31 20:23 | DVHHP2 ---
History of Present Illness Reason for Visit: Generalized weakness History of Present Illness The patient is a 63-year-old male morbidly obese with past medical history of CHF, arthritis, CK F, COPD, hypertension, and seizures presented to [facility] ED with complaint of generalized weakness for the past 1 week. Patient reports he has been experiencing associated dizziness, tremors, as well as frequent falls. Patient was seen and evaluated in the ED, laboratory data shows WBC 10.3, platelets 145, sodium 139, potassium 5.1, BUN 15, creatinine 0.94, GFR 91, glucose 95, troponin four, BNP 97.00, last echo EF 60%. Chest x- ray revealing bibasilar subsegmental atelectasis. Please see medication orders section in the computer. On my assessment, patient denied chest pain, no headache, no diaphoresis, no shortness of breaths, no nausea, no vomiting, no fever, no chills. Patient was admitted for further evaluation and medical management. Past Medical History Arthritis, CHF, CKF, COPD, HTN, Seizures Past Surgical History Denies all surgeries Family History Reviewed, noncontributory to the management of this case. Past Social History The patient lives at home, smokes cigarettes, drinks alcohol occasionally, denies illicit drugs abuse. Review of Systems Constitutional: Yes: Weakness; No: Fever, Chills, Sweats, Malaise, Other Eyes: No: Pain, Vision change, Conjunctivae inflammation, Eyelid inflammation, Other, Redness ENT: No: Ear pain, Ear discharge, Nose pain, Nose discharge, Nose congestion, Mouth pain, Mouth swelling, Throat pain, Throat swelling, Other Respiratory: No: Cough, Dry, Shortness of breath, SOB with excertion, Wheezing, Hemoptysis, Pleuritic Pain, Sputum, Wheezing, Other Cardiovascular: No: Chest Pain, Palpitations, Orthopnea, Paroxysmal Noc. Dyspnea, Edema, Lt Headedness, Other Gastrointestinal: No: Nausea, Vomiting, Abdominal Pain, Diarrhea, Constipation, Melena, Hematochezia, Other Genitourinary: No Dysuria, No Frequency, No Incontinence, No Hematuria, No Retention, No Other Musculoskeletal: No: other, neck pain, shoulder pain, arm pain, back pain, hand pain, leg pain, foot pain Skin: No: Rash, Lesions, Jaundice, Bruising, Other Neurological: Weakness, Other (Dizziness, tremors.); No: Numbness, Incoordination, Change in speech, Confusion, Seizures Allergies: Coded Allergies: NO KNOWN ALLERGIES (Unverified , 06/13/19) Medications Current Medications Medications Dose Ordered Sig/Kerrie Route Start Time Stop Time Status Last Admin Dose Admin Sodium Chloride 10 ml Q8HR IV 07/31/24 22:00 Acetaminophen/ Hydrocodone Bitart 1 tab Q4HP PRN PO 07/31/24 19:45 Ondansetron HCl 4 mg Q4HP PRN IV 07/31/24 19:45 Docusate Sodium 100 mg BIDPRN PRN PO 07/31/24 19:45 Acetaminophen 650 mg Q6HP PRN PO 07/31/24 19:45 Hydralazine HCl 10 mg Q6HP PRN IV 07/31/24 19:45 Albuterol 2.5 mg Q4HPRN PRN NEB 07/31/24 19:45 Exam Vital Signs Vital Signs Date Time Temp Pulse Resp B/P (MAP) Pulse Ox O2 Delivery O2 Flow Rate FiO2 07/31/24 20:00 64 07/31/24 19:36 20 95 Nasal Cannula* 2 28 07/31/24 19:36 98.3 124/95 (105) 98.3 General Appearance: Alert, Oriented X3, Cooperative, No acute distress HEENT: Atraumatic, PERRLA, EOMI, Mucous membr. moist/pink Respiratory: Normal air movement Cardiovascular: Regular rate, Normal S1, Normal S2, No murmurs Abdominal: Normal bowel sounds, Soft, No tenderness, No hepatospenomegaly, No masses Extremities: No clubbing, No cyanosis, No edema, Normal pulses, No tenderness/swelling Skin: No rashes, No breakdown, No significant lesion Neuro: Normal speech, Normal tone, Sensation intact, Cranial nerves 3-12 NL, Reflexes 2+, Other (Generalized weakness) Psych/Mental Status: Mental status NL, Mood NL Labs/Xrays Labs Test 07/31/24 18:05 07/31/24 14:14 07/31/24 13:03 07/31/24 12:34 Range/Units Urine Color Light-yellow Yellow Urine Clarity Clear Clear Urine pH 7.0 5.0-9.0 Urine Specific [place] 1.012 1.001-1.035 Urine Protein Negative Negative Urine Ketones Negative Negative Urine Blood Negative Negative /uL Urine Nitrite Negative Negative Urine Bilirubin Negative Negative Urine Urobilinogen Normal Negative mg/dL Urine Leukocyte Esterase Negative Negative /uL Urine RBC 2 0 - 3 /hpf Urine Microscopic WBC < 1 0-3 /HPF Urine Squamous Epithelial Cells None seen <5 /hpf Urine Bacteria None seen None Seen /hpf Urine Glucose Normal Normal mg/dL Sodium Level 139 136-145 mmol/L Potassium Level 5.1 3.5-5.1 mmol/L Chloride Level 103 98-107 mmol/L Carbon Dioxide Level 34 H 20-31 mmol/L Anion Gap 2 L 5-15 Blood Urea Nitrogen 15 9-23 mg/dL Creatinine 0.94 0.700-1.30 mg/dL Glomerular Filtration Rate Calc 91 >90 mL/min BUN/Creatinine Ratio 16.0 10.0-20.0 Serum Glucose 95 74-106 mg/dL Calcium Level 9.4 8.7-10.4 mg/dL Troponin I High Sensitivity 4 </=54 ng/L White Blood Count 10.3 4.4-10.8 10^3/uL Red Blood Count 4.34 L 4.5-5.90 10^6/uL Hemoglobin 13.7 13.5-17.5 g/dL Hematocrit 42.5 41.0-53.0 % Mean Corpuscular Volume 97.7 80.0-100.0 fL Mean Corpuscular Hemoglobin 31.6 28.0-32.0 pg Mean Corpuscular Hemoglobin Concent 32.3 32.0-36.0 g/dL Red Cell Distribution Width 16.0 H 11.8-14.3 % Platelet Count 145 140-450 10^3/uL Mean Platelet Volume 7.4 6.9-10.8 fL Neutrophils (%) (Auto) 77.9 37.0-80.0 % Lymphocytes (%) (Auto) 13.2 10.0-50.0 % Monocytes (%) (Auto) 6.2 0.0-12.0 % Eosinophils (%) (Auto) 1.9 0.0-7.0 % Basophils (%) (Auto) 0.8 0.0-2.0 % Neutrophils # (Auto) 8.0 1.6-8.6 10 ^3/uL Lymphocytes # (Auto) 1.4 0.4-5.4 10 ^3/uL Monocytes # (Auto) 0.6 0-1.3 10 ^3/uL Eosinophils # (Auto) 0.2 0-0.8 10 ^3/uL Basophils # (Auto) 0.1 0-0.2 10 ^3/uL Nucleated Red Blood Cells 0.0 % B-Type Natriuretic Peptide 97.10 0-100 pg/mL POC Glucose 94 70-106 mg/dl PATIENT: NATHALIE SIERRA ALLENACCT: [id number] UNIT: [id number] : 1960 LOC: ER ROOM / BED: / AGE / SEX: 63 / M ADM STATUS: REG ER SERVICE 1228 ORDERING PHYSICIAN: BERNADETTE ESPITIA MD PROCEDURE(s): CXRP - CHEST PORTABLE REASON: sob ORDER NUMBER(s): [id number], ACCESSION NUMBER(s): [id number] CHEST RADIOGRAPH Indication: sob Technique: Single frontal view of the chest was obtained COMPARISON: XY CHEST PORTABLE on DOS: 07/11/24, XY CHEST PORTABLE on DOS: 07/10/24, XY CHEST PORTABLE on DOS: 07/09/24, CHEST PORTABLE on DOS: 02/19/20 FINDINGS: Lines and Tubes: None Lungs: Bibasilar subsegmental atelectasis. Pleura: No effusion. No pneumothorax. Cardiomediastinal contours: Unremarkable Bones: Unremarkable IMPRESSION: Bibasilar subsegmental atelectasis. Assessment/Plan Assessment/Plan Generalized weakness Hyperkalemia Frequent falls Dizziness and giddiness Morbid obesity Plan 1. Admit to telemetry unit 2. Breathing treatment 3. Pain control management 4. Management of fluids and electrolytes 5. Consultation for Neurology 6. Diagnostic tests chest x-ray 7. DVT prophylaxis on SCDs 8. Repeat labs CBC, CMP in a.m. 9. Continue with current medical management 10. Treatment plan discussed with patient and RN. Patient verbalized understanding. Plan discussed with: Patient, Other (RN) My Orders Orders - LISA WATSON DNP Procedure Category Date Status Time Allergies STEF 07/31/24 In Process 19:42 Code Status CODE 07/31/24 Transmitted 19:42 Sodium Chloride Lock PHA 07/31/24 In Process (Saline Lock Ns) 22:00 Oxygen Per Hour RT 07/31/24 Transmitted 19:42 Hydrocodone-Acet PHA 07/31/24 In Process 5/325mg Tab ([place] 19:45 Ondansetron Hcl PHA 07/31/24 In Process (Zofran) 19:45 Docusate Sodium PHA 07/31/24 In Process Capsule (Colace 19:45 Fall Risk Precautions STEF 07/31/[address] 19:42 Complete Blood Count LAB 08/01/24 Verified 04:00 Comprehensive LAB 08/01/24 Verified Metabolic Panel 04:00 Cardiac DIET 08/01/24 Transmitted Diet-2gna,Lofat,Lochol Breakfast Condition: Serious STEF 07/31/24 In Process 19:42 Acetaminophen Tablet PHA 07/31/24 In Process (Tylenol Tablet) 19:45 Bedrest With Bathroom STEF 07/31/24 In Process Privileg 19:42 Sequential STEF 07/31/24 In Process Compression Device Hydralazine Injection PHA 07/31/24 In Process (Apresoline Inject 19:45 Albuterol Medneb PHA 07/31/24 In Process (Ventolin Medneb) 19:45 * Neurology Consult CONS 07/31/24 Verified 20:21 Admit ADMIT 07/31/24 Verified 20:21 Nitroglycerin PHA 07/31/24 Verified Sublingual (Ntrostat 20:30 Morphine Sulfate PHA 07/31/24 Verified Injection 20:30 Stat Ekg For Chest STEF 07/31/24 Verified Pain 20:21 Notify Md Of Changes [facility] 07/31/24 Verified From Base 20:21 Wind Technician For [facility] 07/31/24 Verified 24 Hours 20:21 Emergency Dysrhythmia STEF 07/31/24 Verified Protocol 20:21 Rhythm Strips Once [facility] 07/31/24 Verified Every Shift 20:21 Oxygen By Nasal RT 07/31/24 Verified Cannula 20:21 Problem List: (1) Generalized weakness (2) Frequent falls (3) Hyperkalemia (4) Dizziness and giddiness (5) Morbid obesity Date of Service: Jul 31, 2024 Billing Provider: LISA WATSON DNP Common Visit Codes: 85753-[id number] INP/OBS CARE (HIGH) LISA WATSON DNP Jul 31, 2024 20:23
[2024-07-31] MEDS ORDERED: MORPHINE SULFATE INJ 2 MG/ml SYRG IV PRN (20:30)
[2024-07-31] MEDS ORDERED: NITROGLYCERIN 0.4 MG SL TAB SL PRN (20:30)
[2024-07-31] MEDS ORDERED: MECLIZINE HCL 25 MG TAB PO PRN (20:45)
[2024-07-31] MEDS: SODIUM CHLOR 0.9% PF (SALINE LOCK) 10ML VIAL/SYR IV SCH (22:03)
[2024-07-31] MEDS: SODIUM ZIRCONIUM CYCL 10 GM PAK PO ONE (22:03)
[2024-07-31] MEDS: traZODone HCL 50 MG TAB PO SCH (22:12)
[2024-08-01] VITALS (7 sets, daily range): BP systolic 137–160; BP diastolic 64–89; PULSE 56–60; RESP 16–19; TEMP 36.6; O2SAT 91–99
[2024-08-01] MEDS: HYDROcodone-ACET 5/325MG TAB PO PRN (01:32)
[2024-08-01] MEDS: hydrALAZINE HCL 20 MG/ML VL IV PRN (01:38)
[2024-08-01 06:59] LABS: Basophils # (auto) 0 10 ^3/uL (0-0.2); Basophils % (auto) 0.5 % (0.0-2.0); Eosinophils # (auto) 0.1 10 ^3/uL (0-0.8); Eosinophils % (auto) 1.4 % (0.0-7.0); Hematocrit 43.3 % (41.0-53.0); Lymphocytes # (auto) 1.4 10 ^3/uL (0.4-5.4); Lymphocytes % (auto) 14.6 % (10.0-50.0); Mean Corpuscular Hemoglobin 31.9 pg (28.0-32.0); Mean Corpuscular Hgb Conc. 32.5 g/dL (32.0-36.0); Mean Corpuscular Volume 98.3 fL (80.0-100.0); Monocytes # (auto) 0.7 10 ^3/uL (0-1.3); Monocytes % (auto) 7.2 % (0.0-12.0); Neutrophils # (auto) 7.2 10 ^3/uL (1.6-8.6); Neutrophils % (auto) 76.3 % (37.0-80.0); Nucleated Red Blood Cells % 0.1 %; Platelet Count (auto) 138 10^3/uL (140-450); Red Cell Distribution Width 15.7 % (11.8-14.3); White Blood Cell 9.4 10^3/uL (4.4-10.8)
[2024-08-01 07:13] LABS: Alanine Aminotransferase 28 U/L (7-40); Albumin 3.8 g/dL (3.2-4.8); Alkaline Phosphatase 96 U/L (46-116); Anion Gap 3 (5-15); Aspartate Aminotransferase 16 U/L (13-40); BUN/Creatinine Ratio 14.4 (10.0-20.0); Bilirubin, Total 0.5 mg/dL (0.2-1.0); Blood Urea Nitrogen 14 mg/dL (9-23); Calcium 9.4 mg/dL (8.7-10.4); Carbon Dioxide 35 mmol/L (20-31); Chloride 101 mmol/L (98-107); Glucose 100 mg/dL (74-106); Potassium 4.7 mmol/L (3.5-5.1); Sodium 139 mmol/L (136-145)
[2024-08-01 10:35] LABS: INR 0.93 (0.9-1.15); Partial Thromboplastin Time 25.8 SEC (24.5-34.5); Prothrombin Time 9.9 sec (9.3-11.8)
[2024-08-01 10:46] LABS: Magnesium 2.2 mg/dL (1.6-2.6)
[2024-08-01 10:55] LABS: Blood Alcohol < 3.0 mg/dL (<10)
[2024-08-01] MEDS: LOSARTAN POTASSIUM 25 MG TAB PO ONE (11:12)
--- NOTE | 2024-08-01 13:51 | DVHPNRES ---
Progress Note Date Seen: Aug 01, 2024 Resident Creating Document: OG MARY RESIDENT Medical Necessity Reason Pt with a Central, PICC or Fol: No Subjective Review of Systems NATHALIE SIERRA BLADIMIR debride old male with a PMH of CHF, arthritis, COPD, HTN, seizures presented to the ED with the chief complaints of generalized weakness for past 1 week. Patient reported he recently discharged from this facility after being treated with CHF and COPD exacerbation since the patient has been having weakness but the days back patient suddenly fell backwards into alert and it is back to the toilet but did not hit head and yesterday patient was at restaurant certainly his knees gave up but did not loss consciousness so patient came to ED for further evaluation. On my assessment patient denies palpitations, nausea, vomiting, dizziness, and other associated symptoms. PMH: CHF, arthritis, COPD, HTN, seizures PSH: Craniectomy, lower back surgery Family history denies Personal history: pack years (30) , denies alcohol and other drug abuse Allergies: No known allergies Patient seen and examined at the bedside. Patient reported improvement in his symptoms since admission, reported no new complaints. PT evaluation and possible DC tomorrow. Patient reports: No new complaints Objective vital signs Vital Sign Date Time Temp Pulse Resp B/P (MAP) Pulse Ox O2 Delivery O2 Flow Rate FiO2 08/01/24 11:12 127/70 08/01/24 10:45 92 Room Air 0.0 08/01/24 10:45 21 08/01/24 09:00 97.9 57 17 97.9 Total Intake and Output 07/31/24 07/31/24 08/01/24 15:00 23:00 07:00 Intake Total 950 ml Balance 950 ml medications Current Medications Medications Dose Ordered Sig/Kerrie Route Start Time Stop Time Status Last Admin Dose Admin Sodium Chloride 10 ml Q8HR IV 07/31/24 22:00 07/31/24 22:03 10 ML Acetaminophen/ Hydrocodone Bitart 1 tab Q4HP PRN PO 07/31/24 19:45 08/01/24 01:32 1 TAB Ondansetron HCl 4 mg Q4HP PRN IV 07/31/24 19:45 Docusate Sodium 100 mg BIDPRN PRN PO 07/31/24 19:45 Acetaminophen 650 mg Q6HP PRN PO 07/31/24 19:45 Albuterol 2.5 mg Q4HPRN PRN NEB 07/31/24 19:45 Nitroglycerin 0.4 mg Q5MINP PRN SL 07/31/24 20:30 Morphine Sulfate 2 mg Q30M PRN IV 07/31/24 20:30 Meclizine HCl 25 mg Q8HPRN PRN PO 07/31/24 20:45 Trazodone HCl 100 mg HS PO 07/31/24 22:00 07/31/24 22:12 100 MG Primidone 50 mg BID PO 08/01/24 22:00 Patient Own Medication 1 tab BID PO 08/01/24 22:00 UNV Losartan Potassium 25 mg DAILY PO 08/02/24 10:00 Gabapentin 600 mg BID PO 08/01/24 22:00 Examination Pt is lying on bed General Appearance: Alert, Oriented X3, Cooperative, Not in acute distress HEENT: Atraumatic, Mucous membranes moist/pink Respiratory: Clear to auscultation, Normal air movement, No added sounds Cardiovascular: Regular rate, Normal S1, Normal S2, No murmurs Abdominal: Active bowel sounds, Soft, no distention, no tenderness Extremities: No edema, Normal pulses, No tenderness/swelling Skin: No Significant rash, except past surgical scars Neuro: Normal speech, sensorimotor deficits none Psych/Mental Status: Mental status NL, Mood NL Nurse was there as carmellane during examination laboratory and microbiology Laboratory Tests 08/01/24 06:00 Test 08/01/24 06:00 Range/Units Serum Glucose 100 74-106 mg/dL Problem List/Assessment/Plan Problem List/Assessment/Plan # Generalized weakness or dizziness likely due to polypharmacy - PT eval - adjust home medications - monitor lab - meclizine # CHF not in exacerbation # COPD not in exacerbation - continue home meds - breathing treatments # uncontrolled HTN - resumed home meds # seizures history -continue primidone Protonix not indicated Lovenox Cardiac diet Goals of care discussed with the patient for more than 29 minutes: Full code status Case discussed with Dr. Arredondo, patient and nurse Plan discussed with: Patient My Orders My Orders Orders - OG MARY RESIDENT Procedure Category Date Status Time Orthostatic Vital ORDERS 08/01/24 Transmitted Signs 07:59 Covid19 Antigen Ursula LAB 08/01/24 Logged 07:59 Drug Screen LAB 08/01/24 Logged 07:59 Rapid Influenza A&B LAB 08/01/24 Logged 07:59 Primidone Tablet PHA 08/01/24 In Process (Mysoline Tablet) 22:00 Losartan Tablet PHA 08/02/24 In Process (Cozaar Tablet) 10:00 Gabapentin Capsule PHA 08/01/24 In Process (Neurontin Capsule) 22:00 Pt Request For Service PT 08/01/24 Logged 13:34 Enoxaparin Sodium PHA 08/01/24 Verified (Lovenox) 14:00 Enoxaparin Sodium PHA 08/02/24 Verified (Lovenox) 10:00 OG MARY RESIDENT Aug 01, 2024 13:51
[2024-08-01] MEDS: ENOXAPARIN SOD 40 MG/0.4 ML SYRINGE SC ONE (14:09)
[2024-08-01 15:16] LABS: COVID19 ANTIGEN SOFIA FIA NEGATIVE (NEGATIVE)
[2024-08-01] MEDS ORDERED: BACL10TA PO (16:17)
--- NOTE | 2024-08-01 16:27 | DVHDSRES ---
Discharge Summary Date of Admission Resident Creating Document: OG MARY RESIDENT Jul 31, 2024 at 20:21 Date of Discharge: Aug 01, 2024 Admitting Diagnosis Generalized weakness Labs/Diagnostic Data: Laboratory Results Test 08/01/24 11:30 08/01/24 11:01 08/01/24 06:00 07/31/24 18:05 SARS-CoV-2 Antigen (Rapid) Negative (NEGATIVE) Ammonia < 10 umol/L (11-32) White Blood Count 9.4 10^3/uL (4.4-10.8) Red Blood Count 4.40 10^6/uL (4.5-5.90) Hemoglobin 14.0 g/dL (13.5-17.5) Hematocrit 43.3 % (41.0-53.0) Mean Corpuscular Volume 98.3 fL (80.0-100.0) Mean Corpuscular Hemoglobin 31.9 pg (28.0-32.0) Mean Corpuscular Hemoglobin Concent 32.5 g/dL (32.0-36.0) Red Cell Distribution Width 15.7 % (11.8-14.3) Platelet Count 138 10^3/uL (140-450) Mean Platelet Volume 7.5 fL (6.9-10.8) Neutrophils (%) (Auto) 76.3 % (37.0-80.0) Lymphocytes (%) (Auto) 14.6 % (10.0-50.0) Monocytes (%) (Auto) 7.2 % (0.0-12.0) Eosinophils (%) (Auto) 1.4 % (0.0-7.0) Basophils (%) (Auto) 0.5 % (0.0-2.0) Neutrophils # (Auto) 7.2 10 ^3/uL (1.6-8.6) Lymphocytes # (Auto) 1.4 10 ^3/uL (0.4-5.4) Monocytes # (Auto) 0.7 10 ^3/uL (0-1.3) Eosinophils # (Auto) 0.1 10 ^3/uL (0-0.8) Basophils # (Auto) 0 10 ^3/uL (0-0.2) Nucleated Red Blood Cells 0.1 % Prothrombin Time 9.9 sec (9.3-11.8) Prothrombin Time INR 0.93 (0.9-1.15) Activated Partial Thromboplast Time 25.8 SEC (24.5-34.5) Sodium Level 139 mmol/L (136-145) Potassium Level 4.7 mmol/L (3.5-5.1) Chloride Level 101 mmol/L (98-107) Carbon Dioxide Level 35 mmol/L (20-31) Anion Gap 3 (5-15) Blood Urea Nitrogen 14 mg/dL (9-23) Creatinine 0.97 mg/dL (0.700-1.30) Glomerular Filtration Rate Calc 87 mL/min (>90) BUN/Creatinine Ratio 14.4 (10.0-20.0) Serum Glucose 100 mg/dL (74-106) Hemoglobin A1c 6.1 % A1C (<5.7) Calcium Level 9.4 mg/dL (8.7-10.4) Magnesium Level 2.2 mg/dL (1.6-2.6) Total Bilirubin 0.5 mg/dL (0.2-1.0) Aspartate Amino Transferase (AST) 16 U/L (13-40) Alanine Aminotransferase (ALT) 28 U/L (7-40) Alkaline Phosphatase 96 U/L (46-116) B-Type Natriuretic Peptide 64.89 pg/mL (0-100) Total Protein 6.0 g/dL (5.7-8.2) Albumin 3.8 g/dL (3.2-4.8) Thyroid Stimulating Hormone (TSH) 2.70 uIU/mL (0.55-4.78) Plasma/Serum Blood Alcohol < 3.0 mg/dL (<10) Urine Color Light-yellow (Yellow) Urine Clarity Clear (Clear) Urine pH 7.0 (5.0-9.0) Urine Specific [place] 1.012 (1.001-1.035) Urine Protein Negative (Negative) Urine Ketones Negative (Negative) Urine Blood Negative /uL (Negative) Urine Nitrite Negative (Negative) Urine Bilirubin Negative (Negative) Urine Urobilinogen Normal mg/dL (Negative) Urine Leukocyte Esterase Negative /uL (Negative) Urine RBC 2 /hpf (0 - 3) Urine Microscopic WBC < 1 /HPF (0-3) Urine Squamous Epithelial Cells None seen /hpf (<5) Urine Bacteria None seen /hpf (None Seen) Urine Glucose Normal mg/dL (Normal) Test 3/24/25 14:14 07/31/24 12:34 Troponin I High Sensitivity 4 ng/L (</=54) POC Glucose 94 mg/dl (70-106) Other Laboratory Tests 08/01/24 06:00 Brief Hx & Hospital Course: NATHALIE SIERRA debride old male with a PMH of CHF, arthritis, COPD, HTN, seizures presented to the ED with the chief complaints of generalized weakness for past 1 week. Patient reported he recently discharged from this facility after being treated with CHF and COPD exacerbation since the patient has been having weakness but the days back patient suddenly fell backwards into alert and it is back to the toilet but did not hit head and yesterday patient was at restaurant certainly his knees gave up but did not loss consciousness so patient came to ED for further evaluation. On my assessment patient denies palpitations, nausea, vomiting, dizziness, and other associated symptoms. Patient required hospital admission for further evaluation and management of generalized weakness. Continuously monitored, did bedside physical therapy evaluation, ordered lab, controlled high blood pressure. Patient condition was improved, hemodynamically stable and in condition discharged home with with the change in baclofen to 10 mg TID instead of baclofen 20mg. Patient urged to follow up with PCP for medication management. Pt is lying on bed General Appearance: Alert, Oriented X3, Cooperative, Not in acute distress HEENT: Atraumatic, Mucous membranes moist/pink Respiratory: Clear to auscultation, Normal air movement, No added sounds Cardiovascular: Regular rate, Normal S1, Normal S2, No murmurs Abdominal: Active bowel sounds, Soft, no distention, no tenderness Extremities: No edema, Normal pulses, No tenderness/swelling Skin: No Significant rash, except past surgical scars Neuro: Normal speech, sensorimotor deficits none Psych/Mental Status: Mental status NL, Mood NL Nurse was there as sharperone during examination Condition at Discharge: Stable Final Diagnosis/Problems List # Generalized weakness or dizziness likely due to polypharmacy # acute hypoxic resp failure resolved with POA # CHF not in exacerbation # COPD not in exacerbation # uncontrolled HTN # Mild hyperkalemia # seizures history Discharge Disposition: Home Discharge Instruct/Medications Diet: Consistent carbohydrate, Cardiac 2g Na,low cholest Activity: No Restrictions, As Tolerated Follow Up/Referral: PCP for medication management Medications: Stop baclofen 20 mg and start Baclofen 10 mg three times resume home meds Discharge Statement: "Patient was advised to return to the ER or call 911 if any headaches, dizziness, shortness of breath, chest pain, abdominal pain, bleeding, fevers, or worsening of medical condition. Patient was counseled about treatment plan, medications, possible side effects, patientverbalized understanding. All questions were answered to the best of my ability. This discharge took greater then 30 minutes in planning, reviewing documentation, counseling the patient, and discussing with other team members." ASSESSMENT ASSESSMENT Assessment Generalized weakness likely due to polypharmacy OG MAYR RESIDENT Aug 01, 2024 16:27
[2024-08-01] MEDS ORDERED: PRIMIDONE 50 MG TAB PO SCH (22:00)
[2024-08-01] MEDS ORDERED: PATIENTS OWN MEDICATION (Gabapentin 1 TAB) PO SCH (22:00)
[2024-08-01] MEDS ORDERED: GABAPENTIN 300 MG CAP PO SCH (22:00)
[2024-08-02] MEDS ORDERED: ENOXAPARIN SOD 40 MG/0.4 ML SYRINGE SC SCH (10:00)
[2024-08-02] MEDS ORDERED: LOSARTAN POTASSIUM 25 MG TAB PO SCH (10:00)
== END 2024-08-01 17:50 | disposition home or self-care (01) | DRG 425 ==
LOC: EDBD 12:22 → ER 12:22 → OVERFLOW 20:21 → TELE-WESTW 23:35
PROVIDERS: ADMIT Student in an Organized Health Care Education/Training Program; ATTEND Student in an Organized Health Care Education/Training Program
DX: E87.5 Hyperkalemia (principal); J96.01 Acute respiratory failure with hypoxia; E87.3 Alkalosis; I50.9 Heart failure, unspecified; I11.0 Hypertensive heart disease with heart failure; E66.01 Morbid (severe) obesity due to excess calories; J98.11 Atelectasis; J44.9 Chronic obstructive pulmonary disease, unspecified; F17.210 Nicotine dependence, cigarettes, uncomplicated; F41.9 Anxiety disorder, unspecified; T50.995A Adverse effect of other drugs, medicaments and biological substances, initial encounter; R29.6 Repeated falls; Z79.2 Long term (current) use of antibiotics; Z68.41 Body mass index [BMI] 40.0-44.9, adult; Z79.1 Long term (current) use of non-steroidal anti-inflammatories (NSAID); Z79.899 Other long term (current) drug therapy; Z79.891 Long term (current) use of opiate analgesic; Y92.89 Other specified places as the place of occurrence of the external cause
CPT/HCPCS: 36415; 71045; 80048; 80053; 80320; 81001; 82140; 82962; 83036; 83735; 83880; 84443; 84484; 85025; 85610; 85730; 87426; 93005; 97163; 99291; 99292; G0378

== ENCOUNTER 2024-10-09 07:58 | Emergency (ER) | payer OTHER, MEDICAID ==
[~2024-10-09] VITALS: Ht 177.8 cm; Wt 124.8 kg
[~2024-10-09 07:58] MED LIST changes: +BACL10TA PO; -DOXY100C79 PO
--- NOTE | 2024-10-09 08:30 | ED.PDOC ---
History of Present Illness HPI Comments 63-year-old male presents to the ER with prior medical history of arthritis, CHF, CKF, COPD, hypertension, seizure; surgical history of left knee surgery, back surgery in April 27 has will the chief complaint of shoulder pain. Patient reports on having back pain for 40+ years due from a incident t hat happened then. Patient states the he has left shoulder pain, lower back pain, neck pain, dried throat, and is even unable to walk. Is a blood pressure of 173/88 with a SAT of 90% room air. Surgery history of tobacco use with denies rest. Denies chills, fever, N/V/D, SOB, CP. No other associated symptoms, modifiers, recent injuries or sick contacts present at this time. Chief Complaint: Upper Extremity Time Seen by MD: 08:15 Primary Care Provider: TRICIA Reviewed Notes: Nurses Notes, Medications, Allergies Allergies: Coded Allergies: NO KNOWN ALLERGIES (Unverified , 06/13/19) Home Meds Active Scripts Baclofen (Baclofen) 10 Mg Tab, 10 MG PO TID for 30 Days, #90 TAB Prov:OG MARY RESIDENT 08/01/24 Albuterol Sulfate (VENTOLIN MDI) 90 Mcg Ih, 90 MCG IN Q4HP PRN for 30 Days, #1 % 1 Refill Prov:KATHRYN CHAMORRO [employer]ER 07/12/24 Prednisone (Prednisone) 20 Mg Tab, 20 MG PO DAILY for 14 Days, #21 MG Prednisone 40 mg p.o. daily x7 days then 20 mg p.o. daily x7 days Prov:KATHRYN CHAMORRO [employer] 07/12/24 Budesonide-Formoterol Fumarate (Budesonide/Formoterol Fum 160-4.5 Mcg/Act) 1 Aer Aer, 1 AER IN BID for 30 Days, #1 AER 1 Refill Prov:KATHRYN CHAMORRO [employer] 07/12/24 Prednisone (Prednisone) 20 Mg Tab, 60 MG PO DAILY, #21 TAB Prov:KADE MOISE 06/29/24 Gabapentin (Gabapentin) 600 Mg Tab, 1 TAB PO BID, #30 TAB Prov:KADE MOISE 06/29/24 Ibuprofen Micronized (Ibuprofen) 600 Mg Tab, 600 MG PO Q8HR PRN for 30 Days, #90 TAB 0 Refills Prov:TAYLOR MO SOCIAL SECURITY ASSESSOR 05/23/24 Reported Medications Primidone (MYSOLINE TABLET) 50 Mg Tb, 1 TAB PO BID for 30 Days, #60 TAKE 1 TABLET BY MOUTH AT BEDTIME FOR 7 DAYS, THEN TAKE 1 TABLET BY MOUTH TWICE A DAY 9AM AND 9PM THEREAFTER. 07/10/24 Morphine Sulfate (Morphine Sulfate) 15 Mg Tab, 1 TAB PO Q4HP PRN for PAIN SCALE 7 THRU 10 for 30 Days, #180 07/10/24 Trazodone Hcl (Trazodone Hcl) 100 Mg Tab, 3 TAB PO QHSP for 30 Days, #90 10/08/11 Information Source: Patient Mode of Arrival: Ambulatory Severity: Moderate Timing: Came on: Gradually Duration: Since onset Prehospital treatment: None Past Medical History PAST MEDICAL HISTORY: Arthritis, CHF, CKF, COPD, HTN, Seizures Surgical History (Other): Left knee surgery, back surgery in April [id number] Family History Family History: Reviewed,noncontributory to illness, Unknown Social History Smoker: Cigarettes, Less Than 1 Pack/Day Alcohol: Denies ETOH Use Drugs: Denies Drug Use Lives In: Home Constitutional: reports: others (Unable to walk); denies: chills, diaphoresis, fatigue, fever, malaise, sweats, weakness EENTM: reports: others (Dry throat ); denies: blurred vision, double vision, ear bleeding, ear discharge, ear drainage, ear pain, ear ringing, eye pain, eye redness, hearing loss, mouth pain, mouth swelling, nasal discharge, nose bleeding, nose congestion, nose pain, photophobia, tearing, throat pain, throat swelling, voice changes Respiratory: denies: cough, hemoptysis, orthopnea, SOB at rest, shortness of breath, SOB with excertion, stridor, wheezing, others Cardiovascular: denies: chest pain, dizzy spells, diaphoresis, Dyspnea on exertion, edema, irregular heart beat, left arm pain, lightheadedness, palpitations, PND, syncope, others Gastrointestinal: denies: abdomen distended, abdominal pain, blood streaked bowels, constipated, diarrhea, dysphagia, difficulty swallowing, hematemesis, melena, nausea, poor appetite, poor fluid intake, rectal bleeding, rectal pain, vomiting, others Genitourinary: denies: burning, dysuria, flank pain, frequency, hematuria, incontinence, penile discharge, penile sore, pain, testicle pain, testicle swelling, urgency, others Neurological: denies: dizziness, fainting, headache, left sided numbness, left sided weakness, numbness, paresthesia, pre-existing deficit, right sided numbness, right sided weakness, seizure, speech problems, tingling, tremors, weakness, others Musculoskeletal: reports: back pain, neck pain, others (Left shoulder pain); denies: gout, joint pain, joint swelling, muscle pain, muscle stiffness Integumetry: denies: bruises, change in color, change in hair/nails, dryness, laceration, lesions, lumps, rash, wounds, others Allergic/Immunocompromised: denies: Difficulty Healing, Frequent Infections, Hives, Itching, others Hematologic/Lymphatic: denies: anemia, blood clots, easy bleeding, easy bruising, swollen glands, others Endocrine: denies: excessive hunger, excessive sweating, excessive thirst, excessive urination, flushing, intolerance to cold, intolerance to heat, unexplained weight gain, unexplained weight loss, others Psychiatric: denies: anxiety, bipolar disorder, depression, hopeless, panic disorder, schizophrenia, sleepless, suicidal, others All Other Systems: Reviewed and Negative Physical Exam General Appearance: Moderate Distress, Normal HEENT: Normal ENT Inspection, Pharynx Normal, TMs Normal Neck: Full Range of Motion, Non-Tender, Normal, Normal Inspection Respiratory: Chest Non-Tender, Lungs Clear, No Accessory Muscle Use, No Respiratory Distress, Normal Breath Sounds Cardiovascular: No Edema, No JVD, No Murmur, No Gallop, Normal Peripheral Pulses, Regular Rate/Rhythm Breast Exam: Deferred Gastrointestinal: No Organomegaly, Non Tender, No Pulsatile Mass, Normal Bowel Sounds, Soft Genitalia: Deferred Pelvic: Deferred Rectal: Deferred Extremities: No calf tenderness, Normal capillary refill, Normal inspection, Normal range of motion, Non-tender, No pedal edema Musculoskeletal : Apperance: Normal Neurologic: Alert, ball truing machine operator II-XII nml as Tested, No Motor Deficits, Normal Affect, Normal Mood, No Sensory Deficits Cerebellar Function: Normal Reflexes: Normal Skin: Dry, Normal Color, Warm Peripheral Pulses: 3+ Radial (R), 3+ Radial (L) Lymphatic: No Adenopathy Was a procedure done? Was a procedure done?: No Differential Dx Considerations may include: Chronic pain syndrome Musculoskeletal pain X-Ray, Labs, Meds, VS Vital Signs Date Time Temp Pulse Resp B/P (MAP) Pulse Ox O2 Delivery O2 Flow Rate FiO2 10/09/24 10:07 50 16 137/75 (95) 92 10/09/24 08:40 142/80 10/09/24 08:36 97.9 70 16 142/80 (100) 94 97.9 10/09/24 08:36 70 16 94 Room Air 10/09/24 08:22 98.0 68 21 173/88 (116) 92 98.0 Current Medications Medications (Trade) Dose Ordered Sig/Kerrie Route Start Time Stop Time Status Last Admin Ketorolac Tromethamine (Toradol Injection) 60 mg ONCE ONCE IM 10/09/24 08:30 10/09/24 08:31 DC 10/09/24 08:41 [place] [address] Ph: [phone] DIAGNOSTIC IMAGING Diagnostic Imaging Report : [id number] Signed PATIENT: NATHALIE SIERRA ACCT: [id number] UNIT: [id number] : 1960 LOC: ER ROOM / BED: / AGE / SEX: 63 / M ADM STATUS: REG ER SERVICE 9 ORDERING PHYSICIAN: BERNADETTE ESPITIA MD PROCEDURE(s): LUMB2 - LUMBAR SPINE 3 VIEW REASON: pain ORDER NUMBER(s): [id number], ACCESSION NUMBER(s): [id number] INDICATION: pain COMPARISON: XY LUMBAR SPINE 3 VIEW on DOS: 06/29/24, LUMBAR SPINE LTD on DOS: 04/28/22, LUMB2 on DOS: 04/28/22, LHAN on DOS: 09/09/21 TECHNIQUE: 2 views of the lumbar spine were obtained. FINDINGS: Postsurgical spinal hardware from L4-S1. Chronic appearing vertebral compression fractures of the L3, L2 and T12 vertebral bodies with less than 10% loss of vertebral body height. Mild multilevel degenerative disc disease of the lumbosacral spine. The paravertebral soft tissues are grossly unremarkable. IMPRESSION: No acute fracture. ATED BY: YVON RIVERA MD DICTATED DATE/TIME: 10/09/24908 SIGNED BY: YVON RIVERA MD SIGNED DATE/TIME: 10/09/24908 CC: Patient alert. Complaining of arm pain. No fall. Vitals stable. Answering questions. History of back surgery. X-ray of the spine does not show any acute process. Was given pain medication. Explained to the patient. Was told to follow up with his primary care physician. Was told to come back if there is any problem. Time of 1ST Reevaluation: 08:45 Reevaluation 1ST: Unchanged Patient Education/Counseling: Diagnosis, Treatment, Prognosis Family Education/Counseling: No Family Present Departure 1 Departure Time of Disposition: 10:48 Impression: Primary Impression: Musculoskeletal pain Additional Impression: Lumbar strain Qualified Codes: S39.012S - Strain of muscle, fascia and tendon of lower back, sequela Disposition: 01 HOME / SELF CARE / HOMELESS Condition: Good Discharged With: Self Critical Care Note Critical Care Time?: No Stability Stability form required: No Heart Score Heart Score: Heart Score Response (Comments) Value History N/A 0 EKG N/A 0 Age N/A 0 Risk Factors N/A 0 Troponin N/A 0 Total 0 I personally scribed for BERNADETTE ESPITIA MD ([email or web address]) on 10/09/24 at 08:30. Electronically submitted by Danielito Garcia ([employer]). I personally scribed for BERNADETTE ESPITIA MD ([email or web address]) on 10/09/24 at 09:49. Electronically submitted by Danielito Garcia ([employer]). BERNADETTE ESPITIA MD Oct 09, 2024 08:30
[2024-10-09 08:36] VITALS: TEMP 97.9
[2024-10-09] MEDS: cloNIDine HCL 0.1 MG TAB PO ONE (08:40)
[2024-10-09] MEDS: KETOROLAC TROMETH 60MG/2ML VIAL IM ONE (08:41)
--- NOTE | 2024-10-09 09:11 | DVH ---
INDICATION: pain COMPARISON: XY LUMBAR SPINE 3 VIEW on DOS: 06/29/24, LUMBAR SPINE LTD on DOS: 04/28/22, LUMB2 on DOS: 04/28/22, LHAN on DOS: 09/09/21 TECHNIQUE: 2 views of the lumbar spine were obtained. FINDINGS: Postsurgical spinal hardware from L4-S1. Chronic appearing vertebral compression fractures of the L3, L2 and T12 vertebral bodies with less th an 10% loss of vertebral body height. Mild multilevel degenerative disc disease of the lumbosacral sp ine. The paravertebral soft tissues are grossly unremarkable. IMPRESSION: No acute fracture.
[2024-10-09 10:07] VITALS: BP 137/75; PULSE 50; RESP 16; O2SAT 92
== END 2024-10-09 11:07 | disposition home or self-care (01) ==
LOC: ER 07:58
DX: S39.012A Strain of muscle, fascia and tendon of lower back, initial encounter (principal); M79.18 Myalgia, other site; M19.90 Unspecified osteoarthritis, unspecified site; I11.0 Hypertensive heart disease with heart failure; I50.9 Heart failure, unspecified; F17.210 Nicotine dependence, cigarettes, uncomplicated; J44.9 Chronic obstructive pulmonary disease, unspecified; Z79.899 Other long term (current) drug therapy; X58.XXXA Exposure to other specified factors, initial encounter; Y93.89 Activity, other specified; Y92.89 Other specified places as the place of occurrence of the external cause; Y99.8 Other external cause status
CPT/HCPCS: 72100; 96372; 99283; J1885

== ENCOUNTER → 2025-02-21 | Day surgery (SDC) | payer OTHER, MEDICAID ==
[~2025-02-21] VITALS: Ht 177.8 cm; Wt 118.4 kg
[~2025-02-21] MED LIST changes: -ALBUAER3 IN; +ATOR-507 PO; -BACL10TA PO; -BUDE1AER4 IN; +CHOL200064 PO; +FLUT50SP; -GABA-339 PO; +GLYCOPYRROLATE 0.2 MG/ML 1ML VIAL ONE; +HYDROmorphone HCL 2 MG/ML VL/or syr ONE; -IBUP1TAB5 PO; +KETOROLAC TROMETH 30 MG/ML 1ML VIAL ONE; +LIDOCAINE 2% (LOCAL ANESTH.) PF 5ml SDV ONE; +LOSA-533 PO; +MELO15TA29 PO; +MIDAZOLAM HCL 2MG/2ML 2ml VIAL (1mg/ml) ONE; -MORP15TA PO; -PRED20TA2 PO; -PRIM50TA5 PO; +PROPOFOL 10 MG/ML 20 ML IV ONE; +ceFAZolin 2 GM/D5W50ml 50 ML IV ONE; +fentaNYL CITRATE 100 MCG/2 ML VL ONE
== END | disposition home or self-care (01) ==
LOC: SUR 08:27
PROVIDERS: ATTEND Orthopaedic Surgery
DX: M75.112 Incomplete rotator cuff tear or rupture of left shoulder, not specified as traumatic (principal); Z53.8 Procedure and treatment not carried out for other reasons; G89.29 Other chronic pain; M25.812 Other specified joint disorders, left shoulder; M75.42 Impingement syndrome of left shoulder; I10 Essential (primary) hypertension; F17.210 Nicotine dependence, cigarettes, uncomplicated; Z79.899 Other long term (current) drug therapy; Z98.890 Other specified postprocedural states
CPT/HCPCS: J0690; J1100; J1885; J2003; J2704; J0169; J2250